=== PATIENT | female | born 1985 | race Caucasian/White ===

== ENCOUNTER 2019-10-15 13:38 | Outpatient (CLI) | payer OTHER, SELFPAY ==
--- NOTE | 2019-10-15 13:53 | XRR_ITS ---
PROCEDURE INFORMATION: Exam: XR Lumbosacral Spine, 2 or 3 Views Exam date and time: 10/15/2019 2:08 PM Age: 34 years old Clinical indication: Low back pain; Prior surgery; Surgery date: 6+ months; Surgery type: Lumbar; Additional info: Chronic back pain/lumbago w/right side sciatica TECHNIQUE: Imaging protocol: XR of the lumbosacral spine, 2 or 3 views. COMPARISON: No relevant prior studies available. FINDINGS: Vertebrae: Mild lumbar dextroscoliosis, possibly positional in nature. Mild L4-L5 disc space narrowing with mild vertebral body endplate bony overgrowth/spurring. Soft tissues: Normal. XR/XR lumbar spine min 4V [id number] IMPRESSION: No acute findings. Mild degenerative disc changes L4-L5.
== END 2019-10-15 13:39 | disposition home or self-care (01) ==
LOC: RAD 13:44
PROVIDERS: Visit Provider Nurse Practitioner Family
DX: M54.9 Dorsalgia, unspecified (principal); G89.29 Other chronic pain; M54.41 Lumbago with sciatica, right side
CPT/HCPCS: 72114

== ENCOUNTER 2019-10-18 22:39 | Emergency (ER) | payer OTHER, SELFPAY ==
[2019-10-18 23:07] VITALS: PULSE 121; RESP 18; TEMP 36.8; O2SAT 99; BMI 51.7
--- NOTE | 2019-10-18 23:30 | ED_ITS ---
HPI - Back Pain/Injury General: Chief Complaint: Back Pain/Injury Stated Complaint: lower back pain Time Seen by Provider: 10/18/19 23:18 History of Present Illness: HPI Narrative: Patient complained about worsening back pain. Has no medicine to take. Was given a steroid shot day before yesterday. Had to miss work. Like some for pain. Has history of back surgery and has an S1 L5 herniation presently. MD elicited complaint: back pain Pertinent past history: prior back pain and back surgery Onset (ago): week(s) Timing: constant and progressively worsening Severity: moderate Similar Symptoms Previously: Yes Quality: aching Location: lumbar spine Radiation: right leg below the knee Exacerbating factors: movement and lifting Associated symptoms: Reports no associated symptoms; Deny abdominal pain, chills, fever(s), nausea or vomiting Review of Systems Const: Denies: fever, chills or body aches Eyes: Denies: change in vision or blurry vision ENMT: Denies: throat pain or nasal congestion Card: Denies: chest pain or shortness of breath on exertion Resp: Denies: shortness of breath, productive cough or non-productive cough GI: Denies: abdominal pain, nausea or vomiting Musc: Reports: back pain and limited range of motion; Denies: extremity pain Skin/Breast: Denies: rash Neuro: Denies: headache Psych: Denies: anxiety or depression Humberto/Lymph: Denies: easy bruising PFSH ED PFSH: Family History (Updated 09/12/19 @ 09:28 by Francie Springer RN) Family/Other Diabetes Maternal aunt Breast cancer maternal aunt Heart disease paternal uncle Grandmother Diabetes maternal Grandfather Diabetes paternal Stroke maternal Sister Diabetes Father Diabetes Hypertension Mother Diabetes Social History (Updated 09/12/19 @ 09:17 by Francie Springer RN) Smoking and tobacco status: never smoked Alcohol intake: never Additional social history: well balanced diet Physical Exam Const: COMMON NORMALS: no apparent distress, average body habitus and oriented x3 HENMT: COMMON NORMALS: normocephalic HEAD & SCALP: normal to inspection and normocephalic FACE & SINUS: normal facial exam Eye: COMMON NORMALS: conjunctivae normal GENERAL EYE: normal appearance of both eyes CONJUNCTIVA: Yes conjunctivae normal Neck/C-Spine: COMMON NORMALS: no JVD Chest: COMMONS NORMALS: inspection of chest normal Resp: COMMON NORMALS: normal respiratory effort and clear to auscultation bilaterally AUSCULTATION: clear to auscultation bilaterally Cardio: COMMON NORMALS: no JVD, regular rate and regular rhythm RATE: regular rate RHYTHM: regular rhythm GI: COMMON NORMALS: normal to inspection, nondistended, normoactive bowel sounds Back/Pelvis: OTHER: Tenderness to the right sciatic nerve through the thigh and calf. Extremity: COMMON NORMALS: normal to inspection and full ROM Neuro: COMMON NORMALS: oriented x3 Course Vital Signs: Vital signs: Vital Signs Temperature 98.2 F 10/18/19 23:07 Pulse Rate 121 H 10/18/19 23:07 Respiratory Rate 18 10/18/19 23:07 Pulse Oximetry 99 10/18/19 23:07 Discharge Plan Discharge Prescriptions: No Action Mirena 20 mcg/24 hours (5 yrs) 52 mg intrauterine device 1 device INTRAUTERI ONCE RF: 0 ProAir RespiClick 90 mcg/actuation aerosol powdr breath activated 2 inh INHALATION Q6H PRNRF: 0 Coding Level of Care Code ED Link Wire Fabric Machine Tender for Chg Fwd
[2019-10-18 23:44] VITALS: BP 117/88; PULSE 71; RESP 18; O2SAT 98
[2019-10-19] MEDS: HYDROcodone-acetaminophen 7.5-325 mg Tablet 1 TAB PO (00:57)
[2019-10-19 01:14] VITALS: BP 112/70; PULSE 74; RESP 18; O2SAT 99
== END 2019-10-19 01:42 | disposition home or self-care (01) ==
PROVIDERS: Emergency Provider Nurse Practitioner Family; PCP Nurse Practitioner Family
DX: M79.661 Pain in right lower leg (principal); M51.27 Other intervertebral disc displacement, lumbosacral region; Z98.890 Other specified postprocedural states
CPT/HCPCS: 99281; 99282

== ENCOUNTER 2020-02-14 21:00 | Emergency (ER) | payer OTHER, SELFPAY ==
[2020-02-14 21:40] VITALS: BP 135/87; PULSE 85; RESP 18; TEMP 37.1; O2SAT 92; BMI 54.0
--- NOTE | 2020-02-14 23:07 | XRR_ITS ---
PROCEDURE INFORMATION: Exam: XR Chest, 1 View Exam date and time: 02/14/2020 11:19 PM Age: 34 years old Clinical indication: Dyspnea; Additional info: SOB, asthma TECHNIQUE: Imaging protocol: XR of the chest Views: 1 view. COMPARISON: No relevant prior studies available. FINDINGS: Lungs: Unremarkable. No consolidation. Pleural space: Unremarkable. No pleural effusion. No pneumothorax. Heart/Mediastinum: Unremarkable. No cardiomegaly. Bones/joints: Unremarkable. XR/XR chest 1V portable [id number] IMPRESSION: No acute findings.
--- NOTE | 2020-02-14 23:09 | ED_ITS ---
HPI - SOB/Dyspnea General: Chief Complaint: Shortness of Breath/Dyspnea Stated Complaint: sob Time Seen by Provider: 02/14/20 23:03 Source: patient Mode of arrival: ambulatory Limitations: no limitations History of Present Illness: HPI Narrative: Patient comes in with increased asthma symptoms over the last 3 days. Patient states that she has had to use her inhaler more often than usual. Patient appears well. Patient appears in mild distress. Review of Systems General: Reports: 10 or more systems reviewed and unremarkable except in HPI and below Resp: Reports: dyspnea PFSH ED PFSH: Family History (Updated 09/12/19 @ 09:28 by Francie Springer RN) Family/Other Diabetes Maternal aunt Breast cancer maternal aunt Heart disease paternal uncle Grandmother Diabetes maternal Grandfather Diabetes paternal Stroke maternal Sister Diabetes Father Diabetes Hypertension Mother Diabetes Social History (Updated 09/12/19 @ 09:17 by Francie Springer RN) Smoking and tobacco status: never smoked Alcohol intake: never Additional social history: well balanced diet Physical Exam Const: COMMON NORMALS: no acute distress and patient oriented x3 GENERAL APPEARANCE: cooperative HENMT: COMMON NORMALS: normocephalic and Normal external nose present HEAD & SCALP: normal to inspection and normocephalic NOSE: Normal external nose present MOUTH: Normal oral and palatal mucosa present THROAT: posterior oropharynx normal Eye: GENERAL EYE: appearance normal, both eyes and all related structures Neck/C-Spine: COMMON NORMALS: full ROM Lymph: LYMPHATIC: no lymphadenopathy noted Chest: COMMONS NORMALS: normal inspection of the chest Resp: COMMON NORMALS: normal respiratory effort EFFORT & INSPECTION: Yes able to speak in complete sentences AUSCULTATION: diminished lung sounds Cardio: COMMON NORMALS: regular rate and regular rhythm RATE: regular rate RHYTHM: regular rhythm GI: COMMON NORMALS: non-tender Back/Pelvis: COMMON NORMALS: thoracic and lumbar spine normal to inspection Extremity: COMMON NORMALS: normal to inspection Neuro: COMMON NORMALS: patient oriented x3 and moves all extremities Psych: COMMON NORMALS: mental status grossly normal and cooperative Skin: COMMON NORMALS: no rashes or lesions noted GENERAL SKIN EXAM: no rashes or lesions noted Course Vital Signs: Vital signs: Vital Signs Temperature 98.7 F 02/14/20 21:40 Pulse Rate 97 02/15/20 00:00 Respiratory Rate 16 02/15/20 00:00 Blood Pressure 105/80 02/15/20 00:00 Pulse Oximetry 96 02/15/20 00:00 MDM - SOB/Dyspnea MDM Narrative: Medical decision making narrative: Patient came in today for complaints of asthma acting up. Patient has been using more of her inhaler than usual for the last 3 days. Patient has been feeling more short of breath. Exam notes decreased breath sounds in the bases of the lungs. Heart rates regular. Vital signs were normal. Differential diagnosis includes lower respiratory infection, asthma, pneumonia. Chest x-ray was normal, laboratory values were normal. Patient was treated in the ER with 10 mg dexamethasone, 2 g of mag sulfate, albuterol and ipratropium breathing treatment. Patient had significant improvement in breath sounds and was resting well. Reviewed post procedure care and recommendations for home treatment. Patient reported understanding agreed to plan. Lab Data: Labs: Lab Results 02/14/20 02/14/20 02/14/20 Range/Units 23:15 23:15 23:15 WBC 8.1 (4.0-10.0) 10^3/ uL RBC 4.68 (4.1-5.3) 10^6/u L Hgb 13.6 (11.5-15.3) g/dL Hct 43.6 (37.0-47.0) % MCV 93.2 (81-99) fL MCH 29.1 (28.0-34.0) pg MCHC 31.2 (30.0-36.0) g/dL RDW 11.6 L (12.1-15.1) % Plt Count 235 (130-400) 10^3/c mm MPV 10.6 H (7.4-10.4) fL Neut % (Auto) 56.5 % Lymph % (Auto) 33.8 % [place] % (Auto) 7.1 % Eos % (Auto) 2.0 % Baso % (Auto) 0.4 % Neut # (Auto) 4.6 (1.8-7.7) 10^3/u L Lymph # (Auto) 2.7 (0.8-4.8) 10^3/u L [place] # (Auto) 0.6 (0.2-0.9) 10^3/u L Eos # (Auto) 0.2 (0.0-0.8) 10^3/u L Baso # (Auto) 0.0 (0.0-0.1) 10^3/u L Nucleated RBC % (a uto) 0 % Nucleated RBCs # 0.0 /100WBC D-Dimer 0.40 (0-0.59) ug/mIFE U Sodium 141 (136-145) mmol/L Potassium 3.5 (3.5-5.1) mmol/L Chloride 104 (98-107) mmol/L Carbon Dioxide 26 (22-29) mmol/L Anion Gap 14.5 (5-19) BUN 9 (6-20) mg/dL Creatinine 0.7 (0.5-0.9) mg/dL GFR Calculation 95.2 (90-130) mL/min Glucose 111 (65-115) mg/dL Calculated Osmolal ity 289 (285-295) mOsm/k g Calcium 9.1 (8.5-10.5) mg/dL Magnesium 2.1 (1.7-2.3) mg/dL Total Bilirubin 0.2 (0.15-1.2) mg/dL AST 17 (0-32) U/L ALT 19 (0-33) U/L Alkaline Phosphata se 146 H (35-105) IU/L Total Protein 7.4 (6.6-8.7) g/dL Albumin 3.9 (3.5-5.2) g/dL Globulin 3.5 (1.3-4.6) g/dL HCG, Qual (Negative) 02/14/20 Range/Units 23:15 WBC (4.0-10.0) 10^3/ uL RBC (4.1-5.3) 10^6/u L Hgb (11.5-15.3) g/dL Hct (37.0-47.0) % MCV (81-99) fL MCH (28.0-34.0) pg MCHC (30.0-36.0) g/dL RDW (12.1-15.1) % Plt Count (130-400) 10^3/c mm MPV (7.4-10.4) fL Neut % (Auto) % Lymph % (Auto) % [place] % (Auto) % Eos % (Auto) % Baso % (Auto) % Neut # (Auto) (1.8-7.7) 10^3/u L Lymph # (Auto) (0.8-4.8) 10^3/u L [place] # (Auto) (0.2-0.9) 10^3/u L Eos # (Auto) (0.0-0.8) 10^3/u L Baso # (Auto) (0.0-0.1) 10^3/u L Nucleated RBC % (a uto) % Nucleated RBCs # /100WBC D-Dimer (0-0.59) ug/mIFE U Sodium (136-145) mmol/L Potassium (3.5-5.1) mmol/L Chloride (98-107) mmol/L Carbon Dioxide (22-29) mmol/L Anion Gap (5-19) BUN (6-20) mg/dL Creatinine (0.5-0.9) mg/dL GFR Calculation (90-130) mL/min Glucose (65-115) mg/dL Calculated Osmolal ity (285-295) mOsm/k g Calcium (8.5-10.5) mg/dL Magnesium (1.7-2.3) mg/dL Total Bilirubin (0.15-1.2) mg/dL AST (0-32) U/L ALT (0-33) U/L Alkaline Phosphata se (35-105) IU/L Total Protein (6.6-8.7) g/dL Albumin (3.5-5.2) g/dL Globulin (1.3-4.6) g/dL HCG, Qual Negative (Negative) Discharge Plan Discharge Patient Disposition: Home, Self-Care Clinical Impression: Asthma with exacerbation Qualifiers: Asthma severity: moderate Asthma persistence: persistent Qualified Code(s): J45.41 - Moderate persistent asthma with (acute) exacerbation Condition: Stable Prescriptions: New prednisone 20 mg tablet 20 mg PO BID 3 Days Qty: 6 RF: 0 No Action Mirena 20 mcg/24 hours (5 yrs) 52 mg intrauterine device 1 device INTRAUTERI ONCE RF: 0 ProAir RespiClick 90 mcg/actuation aerosol powdr breath activated 2 inh INHALATION Q6H PRNRF: 0 Lorcet (hydrocodone) 5-325 mg tablet 1 tab PO Q6H PRN (Reason: pain) Qty: 14 RF: 0 Discharge Orders: Discharge Order (Routine); Ordered 02/15/20 Ordered By: Vernon Camacho Referrals: MARTHA KLEIN FNP [Primary Care Provider] - Discharge Diet: Usual diet Discharge Activity: Increase activity as tolerated Patient Instructions: Asthma (ED) Activity Restrictions/Additional Instructions: Drink plenty of fluids. Continue with inhalers as directed. Follow-up with primary care in 3 days for recheck. Return to the ER for high fever or worsening shortness of breath. Coding Level of Care Code ED Financial Services Representative for Chg Fwd Exam Comprehensive
[2020-02-14] MEDS: ipratropium-albuterol 3 mL Neb INHALATION (23:18)
[2020-02-14 23:19] VITALS: PULSE 75; RESP 24; O2SAT 99
[2020-02-14 23:27] LABS: Basophils % 0.4 %; Eosinophils # 0.2 10^3/uL (0.0-0.8); Hematocrit 43.6 % (37.0-47.0); Hemoglobin 13.6 g/dL (11.5-15.3); Lymphocytes # 2.7 10^3/uL (0.8-4.8); Lymphocytes % 33.8 %; Mean Corpuscular HGB Conc 31.2 g/dL (30.0-36.0); Mean Corpuscular Hemoglobin 29.1 pg (28.0-34.0); Mean Corpuscular Volume 93.2 fL (81-99); Mean Platelet Volume 10.6 fL (7.4-10.4); Monocytes # 0.6 10^3/uL (0.2-0.9); Monocytes % 7.1 %; Neutrophils # 4.6 10^3/uL (1.8-7.7); Neutrophils % 56.5 %; Nucleated Red Blood Cells % 0 %; Platelet Count 235 10^3/cmm (130-400); Red Blood Count 4.68 10^6/uL (4.1-5.3); Red Cell Distribution Width 11.6 % (12.1-15.1); White Blood Count 8.1 10^3/uL (4.0-10.0)
[2020-02-14] MEDS: dexamethasone 10 mg/mL INJ IVP (23:36)
[2020-02-14] MEDS: magnesium sulfate premix 2 GM/50 ML PIGGYBACK IV (23:36)
[2020-02-14 23:42] LABS: HCG, Serum Qual Negative (Negative)
[2020-02-14 23:44] LABS: Alanine Aminotransferase 19 U/L (0-33); Albumin Level 3.9 g/dL (3.5-5.2); Alkaline Phosphatase 146 IU/L (35-105); Anion Gap 14.5 (5-19); Aspartate Amino Transferase 17 U/L (0-32); Blood Urea Nitrogen 9 mg/dL (6-20); Calcium 9.1 mg/dL (8.5-10.5); Carbon Dioxide 26 mmol/L (22-29); Chloride 104 mmol/L (98-107); Globulin 3.5 g/dL (1.3-4.6); Glomerular Filtration Rate 95.2 mL/min (90-130); Glucose 111 mg/dL (65-115); Magnesium 2.1 mg/dL (1.7-2.3); Osmolality Calculated 289 mOsm/kg (285-295); Potassium 3.5 mmol/L (3.5-5.1); Sodium 141 mmol/L (136-145); Total Bilirubin 0.2 mg/dL (0.15-1.2); Total Protein 7.4 g/dL (6.6-8.7)
[2020-02-15] VITALS: BP 105/80; PULSE 97; RESP 16; O2SAT 96
[2020-02-15 01:09] VITALS: BP 108/66; PULSE 77; RESP 16; O2SAT 96
== END 2020-02-15 01:11 | disposition home or self-care (01) ==
PROVIDERS: Emergency Provider Nurse Practitioner Family; PCP Nurse Practitioner Family
DX: J45.41 Moderate persistent asthma with (acute) exacerbation (principal)
CPT/HCPCS: 12345; 71045; 80053; 83735; 84703; 85025; 85378; 94640; 96365; 96375; 99283; 99284; J1100; J3475

== ENCOUNTER → 2020-03-09 17:34 | Outpatient (BNVA) | payer OTHER, SELFPAY | PROVIDERS: PCP Nurse Practitioner Family; Visit Provider Nurse Practitioner | DX: R30.0 Dysuria (principal); N39.0 Urinary tract infection, site not specified; Z71.89 Other specified counseling | CPT/HCPCS: 81000 ==

== ENCOUNTER → 2020-09-12 17:18 | Outpatient (BNVA) | payer OTHER, SELFPAY | PROVIDERS: PCP Nurse Practitioner Family; Visit Provider Family Medicine | DX: Z20.828 Contact with and (suspected) exposure to other viral communicable diseases (principal) | CPT/HCPCS: 87635 ==

== ENCOUNTER → 2021-03-25 09:27 | Outpatient (BNVA) | payer OTHER, SELFPAY | PROVIDERS: PCP Family Medicine; Visit Provider Family Medicine | DX: F41.8 Other specified anxiety disorders (principal); M54.41 Lumbago with sciatica, right side; G89.29 Other chronic pain; Z13.6 Encounter for screening for cardiovascular disorders | CPT/HCPCS: 80053; 80061; 85025 ==

== ENCOUNTER 2021-09-01 07:16 | Outpatient (CLI) | payer OTHER, SELFPAY ==
--- NOTE | 2021-09-01 07:28 | XR_ITS ---
WS: [id number] Left knee, 3 views, 09/01/2021 Clinical Data: left knee pain Comparison: None. Findings: No fractures or dislocations are seen. There is medial joint compartment narrowing with small osteoph ytes of the medial lateral tibial plateau and of the medial femoral condyle. There is minimal spurrin g of the posterior patella. . The soft tissues are unremarkable. 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 Kellgren-Matteo Classification: grade 2 (minimal): definite osteophytes and p ossible joint space narrowing
== END 2021-09-01 07:17 | disposition home or self-care (01) ==
PROVIDERS: PCP Family Medicine; Visit Provider Registered Nurse Neonatal Intensive Care
DX: M25.562 Pain in left knee (principal)
CPT/HCPCS: 73562

== ENCOUNTER 2021-10-31 09:54 | Outpatient (CLI) | payer OTHER, SELFPAY ==
--- NOTE | 2021-10-31 10:15 | MR_ITS ---
WS: [id number] MRI LEFT KNEE HISTORY: M25.562 - Pain in left knee COMPARISON: Radiograph 09/01/2021 Anterior cruciate ligament: Mild increased signal mild thinning of the ACL. No full-thickness tears a re identified. Posterior cruciate ligament: Intact. Medial collateral ligament: Small amount of fluid but no tear. Posterior lateral corner structures: Intact. Medial menisci: Intact. Normal signal, size and shape. Lateral meniscus: Intact. Normal signal, size and shape. Extensor mechanism: Normal extensor and patellar tendons. Fluid and soft tissue: Small suprapatellar joint effusion. Moderate-sized lobulated cystic mass along the medial knee. A portion of this extends between the medial head of the gastrocnemius and the semi membranosus tendon consistent with a Marie's cyst. There is also a component that extends medial to t he semimembranosus tendon along the medial knee. There does appear to be a connection between the 2 c omponents. Osseous and articular structures: Patellofemoral compartment: Moderate chondromalacia patella. No underlying marrow edema. The remainin g cartilage is intact. Medial compartment: Mild narrowing medial compartment. Full-thickness focal defect measuring about 5 mm along the weightbearing surface of the femoral condyle and the tibial plateau. No marrow edema. Lateral compartment: Mild narrowing of lateral compartment with marginal osteophytes. Mild fissuring and thinning of the cartilage. No full-thickness defect. MR/MR knee LT con* [id number] IMPRESSION: 1. Mild degenerative changes throughout the ACL but no full-thickness tear. 2. Moderate-sized suprapatellar joint effusion. 3. Lobulated cystic mass centered in the expected location of the Marie's cyst but a component also extends medial to the semimembranosus tendon. 4. 5 mm full-thickness cartilage defects weightbearing surface medial femoral condyle and tibial plateau. 5. Chondromalacia at the patellar eminence.
== END 2021-10-31 09:55 | disposition home or self-care (01) ==
LOC: RAD 09:56
PROVIDERS: PCP Family Medicine; Visit Provider Orthopaedic Surgery
DX: M25.462 Effusion, left knee (principal); M22.42 Chondromalacia patellae, left knee
CPT/HCPCS: 73721

== ENCOUNTER 2021-11-10 07:08 | Day surgery (SDC) | payer OTHER, SELFPAY ==
[2021-11-04 12:36] LABS: Adenovirus Not Detected (NOT DETECT); Chlamydia Pneumoniae Not Detected (NOT DETECT); Coronavirus 229E,HKU1,NL63,OC4 Not Detected (NOT DETECT); Human Metapneumovirus Not Detected (NOT DETECT); Human Rhinovirus/Enterovirus Not Detected (NOT DETECT); Influenza A Not Detected (NOT DETECT); Influenza A H1 Not Detected (NOT DETECT); Influenza A H1-2009 Not Detected (NOT DETECT); Influenza A H3 Not Detected (NOT DETECT); Influenza B Not Detected (NOT DETECT); Mycoplasma Pneumoniae Not Detected (NOT DETECT); Parainfluenza Virus Type 1 Not Detected (NOT DETECT); Parainfluenza Virus Type 2 Not Detected (NOT DETECT); Parainfluenza Virus Type 3 Not Detected (NOT DETECT); Parainfluenza Virus Type 4 Not Detected (NOT DETECT); Respiratory Syncytial Virus A Not Detected (NOT DETECT); Respiratory Syncytial Virus B Not Detected (NOT DETECT); SARS-COV-2 Not Detected (NOT DETECT)
[2021-11-09 14:40] VITALS: BMI 50.5
[2021-11-10] VITALS (10 sets, daily range): BP systolic 100–153; BP diastolic 65–118; PULSE 82–98; RESP 13–26; TEMP 36.1; O2SAT 94–100
--- NOTE | 2021-11-10 07:52 | W.PM.OPSUD ---
Surgery/Procedure H&P Update DATE OF PROCEDURE: November 10, 2021 DATE H&P PERFORMED: 11/02/21 H&P UPDATE INFORMATION: I have reviewed H&P completed within last 30 days PREOP DIAGNOSIS: Rheumatic chondral injury left knee PLANNED PROCEDURE: Operation Date: 11/10/21 08:20 Proposed Procedures p Left Knee Arthroscopy 82797/m17.12(Left) - Jg Harris MD
[2021-11-10 07:56] LABS: OR HCG Qualitative Urine Negative (Negative)
[2021-11-10] MEDS: sodium chloride 0.9% 1,000 ML 30 ML IV (08:00)
--- NOTE | 2021-11-10 08:32 | P.ANESASSM_ITS ---
Pre-Anesthetic Assessment Height/Weight: Height 1.78 m Weight 159.665 kg Temp Pulse Resp BP Pulse Ox 97 F L 93 18 153/118 100 11/10/21 08:05 11/10/21 08:05 11/10/21 08:05 11/10/21 08:05 11/10/21 08:05 Preop Diagnosis: Chondromalacia left knee Operation Date: 11/10/21 08:20 Proposed Procedures p Left Knee Arthroscopy 80984/m17.12(Left) - Jg Harris MD Familial anesthetic complications: None Was Beta Jin taken within 24 hours: N/A Was Clonidine taken within 24 hours: N/A Last intake: Intake Last Liquid Date 11/09/21 Last Liquid Time 21:00 Last Solid Date 11/09/21 Last Solid Time 18:00 Social No alcohol and No tobacco Exam alert, oriented x 3, clear to auscultation bilaterally and regular rate & rhythm Airway Submandibular: within normal limits Cervical ROM: within normal limits Mallampati: Class II Dentition: full Pulmonary Asthma GI Gastroesophageal Reflux [place] [facility] [place] Pain Neuropsych Anxiety and Depression Anesthetic Plan ASA status: 3 Anesthesia: General Risk of > 500 ml blood loss (7ml/kg in children): No Medications/Allergies Home Medications Medication Instructions Recorded Confirmed Last Taken Type levonorgestrel 20 mcg/24 hours (7 1 device INTRAUTERI ONCE 09/10/19 11/09/21 11/09/21 History yrs) 52 mg intrauterine device (Mirena) albuterol sulfate 90 mcg/actuation 2 inh INHALATION Q6H PRN #1 ea 03/25/21 11/10/21 1 Day Ago Rx breath activated powder inhaler ~11/09/21 (ProAir RespiClick) cyclobenzaprine 10 mg tablet 10 mg PO BID PRN #135 tab 07/07/21 11/09/21 11/09/21 Rx gabapentin 300 mg capsule See Rx Instructions PO TID #360 cap 07/07/21 11/09/21 11/09/21 Rx montelukast 10 mg tablet 10 mg PO DAILY #90 tab 07/07/21 11/09/21 11/09/21 Rx (Singulair) omeprazole 40 mg capsule,delayed 40 mg PO DAILY #90 cap 11/04/21 03/09/22 03/09/22 Rx release bupropion HCl 300 mg 24 hr tablet, 300 mg PO QAM #90 tab 09/15/21 11/09/21 11/09/21 Rx extended release naproxen 500 mg tablet (Naprosyn) 500 mg PO BID #60 tab 09/15/21 11/09/21 10/26/21 Rx hydrocodone 5 mg-acetaminophen 325 1 tab PO Q4H #30 tab 11/10/21 Unknown Rx mg tablet Allergies Allergy/AdvReac Type Severity Reaction Status Date / Time adhesive Allergy Severe skin tears Verified 11/10/21 07:38 Pertussis Vaccines Allergy Severe anaphylaxis Verified 11/10/21 07:38 nalbuphine [From Nubain] Allergy projectile Verified 11/10/21 07:38 vomiting contrast media Allergy Rash, Uncoded 11/10/21 07:38 headache, itching PFSH Anesthesia Medical History Contraception management Patient was counseled regarding all methods of contraception, long acting reversible contraception, indications, contraindications, side effects and complications. She elected for the levonorgestrel-releasing intrauterine system. Return next for insertion of the levonorgestrel-releasing intrauterine system. Time: 30 min. Surgical History History of cholecystectomy 10/2010 History of laminectomy L4-L5 History of tonsillectomy 09/2001 Hx of discectomy 06/2017 L4-L5 Family History Family/Other Diabetes Maternal aunt Breast cancer maternal aunt Heart disease paternal uncle Grandmother Diabetes maternal Grandfather Diabetes paternal Stroke maternal Sister Diabetes Father Diabetes Hypertension Mother Diabetes Social History Smoking and tobacco status: never smoked Alcohol intake: never Additional social history: well balanced diet Female Reproductive History Date of last menstrual period: 11/13/18 Data Anesthesia Cardiac Studies: No Data to Display
[2021-11-10] MEDS: morphine 4 mg/mL SDV 1 mL 8 MG XX (08:36)
--- NOTE | 2021-11-10 09:03 | PM.OP ---
Operative Report Date of procedure: November 10, 2021 Pre-op diagnosis: Preop Diagnosis Chondromalacia left knee Post-op diagnosis: same Procedure done: Microfracture chondroplasty medial femoral condyle, debridement chondroplasty lateral femoral condyle patella and trochlea Pathology: none sent Surgeon: Jg Harris Anesthesia: General Estimated blood loss (mL): 5 Tourniquet time (min): 16 Findings: Patient had a area of a full-thickness cartilage loss over the central weightbearing femoral condyle over a area approximately 5 mm from medial to lateral and 12 mm from anterior to posterior. There is generalized thinning of cartilage over the lateral femoral condyle patella and trochlea but no point was exposed subchondral bone noted. Brief History: Bhaskar is a 36-year-old female who slipped and fell on August 06, 2021 with resulting knee pain. An MRI revealed, in addition to is diffuse degenerative changes full-thickness cartilage defect over the medial femoral condyle Procedure: The patient was taken to the operating room and given a general anesthesia. She was prepped and draped in the standard fashion. The knee was infiltrated with 30 cc of 1% Marcaine with epi and 10 mg of morphine. A timeout was performed. The knee was initially entered through standard inferior medial and inferior lateral portal. The diagnostic portion of the arthroscopy was performed. Areas of cartilage thinning were identified about the patella trochlea and lateral femoral condyle. The area of full-thickness cartilage loss was seen over the medial femoral condyle. Utilizing an incisor shaver the edges were debrided back to a sharp stable base. This created a defect approximately 5 mm from medial to lateral and 12 mm from anterior to posterior. As a subchondral bone was intact and the defect small a decision was made to proceed with a microfracture chondroplasty. Through the lateral portal perforating awl was passed and 5 perforations were made in an alternating fashion from posterior to anterior medial to lateral. Pressure was deflated on the tourniquet and blood medial eminence were seen to emanate from the wounds. The lateral compartment was then inspected. Areas of thinning and fibrillation were lightly debrided back with the [employer] probe. At no point was exposed subchondral bone identified. Attention was then focused on the trochlea and patella. Widespread thinning of cartilage about the medial and lateral trochlea and medial lateral patella were lightly debrided back again without exposed subchondral bone. The knee was irrigated with saline. Portals were closed with 3-0 Prolene. Sterile dressings were applied. The patient was extubated taken to recovery in stable condition.
[2021-11-10] MEDS: ondansetron 2 mg/ML SDV 2 mL 4 MG IVP ×2 (09:15→09:27)
[2021-11-10] MEDS: diphenhydrAMINE 50 mg/mL SDV 1mL 12.5 MG IVP (09:22)
[2021-11-10] MEDS: hetastarch 30 GM/500 ML PREMIX IV (10:06)
--- NOTE | 2021-11-10 14:49 | ANE.PACU2 ---
Inpatient post-anesthesia follow up: Airway intact: Yes Vital signs: Temperature 97 F Pulse Rate 87 Respiratory Rate 18 Blood Pressure 122/78 Pulse Oximetry 98 Oxygen Delivery Me thod Room Air Oxygen Flow Rate Fraction of Inspir ed Oxygen Hydration adequate: Yes Nausea and vomiting: Yes Pain level: 3 Mental status: Baseline
== END 2021-11-10 11:15 | disposition home or self-care (01) ==
PROVIDERS: Anesthesiology; PCP Family Medicine; Visit Provider Orthopaedic Surgery
PROC: (CPT 29870; principal; 2021-11-10 08:10)
DX: M94.262 Chondromalacia, left knee (principal); K21.9 Gastro-esophageal reflux disease without esophagitis
CPT/HCPCS: 29877; 81025; 84703; 87635; J0690; J1100; J1200; J2250; J2270; J2405; J2704; J3010; J3490; J7030

== ENCOUNTER 2021-12-26 20:00 | Outpatient (CLI) | payer OTHER, SELFPAY | END 2021-12-26 20:01 | disposition home or self-care (01) | LOC: SLEEP 12-27 10:27 | PROVIDERS: PCP Family Medicine; Visit Provider Family Medicine | DX: G47.10 Hypersomnia, unspecified (principal); R06.83 Snoring | CPT/HCPCS: 95810 ==

== ENCOUNTER 2022-01-12 10:55 | Outpatient (CLI) | payer OTHER, SELFPAY ==
[2022-01-12 12:33] LABS: HCG, Serum Qual Negative (Negative)
== END 2022-01-12 10:56 | disposition home or self-care (01) ==
PROVIDERS: PCP Family Medicine; Visit Provider Family Medicine Adult Medicine
DX: Z30.9 Encounter for contraceptive management, unspecified (principal)
CPT/HCPCS: 36415; 84703

== ENCOUNTER 2022-03-30 12:52 | Outpatient (CLI) | payer OTHER, SELFPAY ==
--- NOTE | 2022-03-30 13:00 | MR_ITS ---
WS: [id number] MRI LUMBAR SPINE NONCONTRAST TECHNIQUE: Sagittal T1, T2 and STIR imaging. Axial T1 and T2 imaging. CLINICAL INFORMATION: chronic low back pain COMPARISON: None. FINDINGS: Mild lumbar curve. No acute compression. Prior postoperative changes L4-L5 laminectomy. No high-grade central canal stenosis. Disc space narrowing L4-L5 and L5-S1 with endplate degenerative changes. L1-L2: Normal. L2-L3: Normal. L3-L4: No significant disc bulging. Mild facet arthropathy. Spinal canal and foramen are patent. L4-L5: Prior postoperative changes laminectomy defects. Spinal canal is patent. Narrowing of the RIGH T subarticular recess with impingement traversing RIGHT L5 nerve root suspicious for recurrent disc p rotrusion. Some this may represent granulation tissue. Mild RIGHT foraminal narrowing. LEFT foramen i s patent. L5-S1: Mild annular bulging with a LEFT pericentral disc protrusion. Impingement traversing LEFT S1 n erve root. Mild RIGHT and no significant LEFT foraminal narrowing. Mild facet arthropathy. Slight ret rolisthesis L5 on S1. Visualized pelvic bony structures: Normal. Paravertebral soft tissues: Normal. MR/MR lumbar spine wo con* [id number] IMPRESSION: 1. Mild lumbar curve. No acute compression. Prior postoperative changes blossom ctomy defects L4-L5 with disc desiccation L4-L5 and L5-S1. 2. Narrowing of the RIGHT L4-L5 subarticular recess suspicious for small recur rent disc protrusion. Some this may represent granulation tissue. Recommend cor relation with RIGHT L5 nerve root symptoms. 3. LEFT pericentral disc protrusion L5-S1 impinges the traversing LEFT S1 nerv e root. Recommend correlation LEFT S1 nerve root symptoms. 4. Mild RIGHT L5-S1 foraminal narrowing.
== END 2022-03-30 12:53 | disposition home or self-care (01) ==
PROVIDERS: PCP Family Medicine; Visit Provider Family Medicine
DX: G89.29 Other chronic pain (principal); M96.1 Postlaminectomy syndrome, not elsewhere classified; M51.27 Other intervertebral disc displacement, lumbosacral region
CPT/HCPCS: 72148

== ENCOUNTER 2022-11-28 12:27 | Emergency (ER) | payer OTHER, SELFPAY ==
[2022-11-28 12:29] VITALS: BP 154/82; PULSE 88; RESP 18; TEMP 36.7; O2SAT 92; BMI 54.1
--- NOTE | 2022-11-28 12:47 | ED_ITS ---
HPI - Headache General: Chief Complaint: Headache Stated Complaint: 9 days head pain Time Seen by Provider: 11/28/22 12:47 Source: patient Mode of arrival: ambulatory Limitations: no limitations History of Present Illness: Patient is a 37-year-old female presents to ED today with complaint of a migraine headache over the past 9 days. Patient states she has a longstanding history of migraine headaches and states her headache currently feels identical to previous migraines. She has tried Effexor (started 3 days ago by PCP Dr. Zuniga for preventative treatment) and Imitrex at home without relief. She went to an urgent care facility where she was given Toradol and Zofran all of which has not helped her headache. Patient reports sensitivity to light and sound. She denies fever, neck pain, neck stiffness. MD elicited complaint: headache and migraine Pertinent past history: migraines Onset (ago): day(s) Onset description: gradually Severity: severe Pain scale (0-10): 8 Exacerbating factors: light and noise Relieving factors: nothing Associated symptoms: Deny chest pain, confusion, fever(s), malaise, nausea, rash or vomiting Treatments prior to arrival: migraine medication Review of Systems Const: Denies: fever(s), chills, body aches, fatigue or malaise Eyes: Reports: photophobia; Denies: change in vision, blurry vision, floaters or seeing flashes ENMT: Denies: throat pain, uvular edema, enlarged tonsils, odynophagia, mouth pain or swelling of lips/tongue Card: Denies: chest pain Resp: Denies: dyspnea GI: Denies: nausea or vomiting Musc: Denies: neck pain Skin/Breast: Denies: rash Neuro: Reports: headache(s); Denies: numbness in extremities, weakness in extremities, sensory changes, dizziness, vertigo or confusion PFSH ED PFSH: Medical History Contraception management Patient was counseled regarding all methods of contraception, long acting reversible contraception, indications, contraindications, side effects and complications. She elected for the levonorgestrel-releasing intrauterine system. Return next for insertion of the levonorgestrel-releasing intrauterine system. Time: 30 min. Surgical History History of cholecystectomy 10/2010 History of laminectomy L4-L5 History of tonsillectomy 09/2001 Hx of discectomy 06/2017 L4-L5 Family History Family/Other Diabetes Maternal aunt Breast cancer maternal aunt Heart disease paternal uncle Grandmother Diabetes maternal Grandfather Diabetes paternal Stroke maternal Sister Diabetes Father Diabetes Hypertension Cancer kidney Mother Diabetes Other Hyperlipidemia Lung disease Psychiatric illness Denies family history of CAD (coronary artery disease) Clotting disorder Dementia Chronic kidney disease (CKD) Anesthesia complication Bleeding disorder Social History Smoking and tobacco status: never smoked Second hand smoke exposure: No Alcohol intake: current Alcohol intake frequency: holidays/special occasions only Lives independently: Yes Household members: children Marital status: Number of children: 2 Current occupational status: employed Current occupation: [employer] at [employer] Pets and animals: Yes Pets & animals: cat(s) Current gender identity: Female Special dotty needs: No Agree to transfusion: Yes Additional social history: well balanced diet Physical Exam Const: COMMON NORMALS: no acute distress, patient oriented x3, no limitations and alert GENERAL APPEARANCE: cooperative NUTRITIONAL APPEARANCE: obese morbidly obese ORIENTATION/CONSCIOUSNESS: Yes awake, Yes oriented to person, Yes oriented to place and Yes oriented to time HENMT: COMMON NORMALS: normocephalic and atraumatic HEAD & SCALP: normal to inspection, normocephalic and atraumatic THROAT: no uvular edema Neck/C-Spine: COMMON NORMALS: full ROM and no meningeal signs Neuro: SONIA COMA SCALE: document GCS findings [place] coma scale eye opening: Spontaneous [place] coma scale verbal response: Orientated [place] coma scale motor response: Obey commands Sonia coma scale total score: 15 COMMON NORMALS: patient oriented x3, CN's II-XII intact bilaterally, moves all extremities, no focal motor deficits, no sensory deficits noted and gait normal SENSORIUM/ORIENTATION: Yes alert, Yes oriented to person, Yes oriented to place and Yes oriented to time MENINGEAL SIGNS: Yes no meningeal signs Course Vital Signs: Vital signs: Vital Signs Temperature 98.0 F 11/28/22 12:29 Pulse Rate 88 11/28/22 12:29 Respiratory Rate 18 11/28/22 12:29 Blood Pressure 154/82 11/28/22 12:29 Pulse Oximetry 92 11/28/22 12:29 Oxygen Delivery Me thod 11/28/22 12:29 MDM - Headache Medical Decision Making Patient's headache down from an 8/10 to a 2/10. She feels comfortable going home at this time. Discharge Plan Discharge Patient Disposition: Home Clinical Impression: Migraine Qualifiers: Migraine type: unspecified Status migrainosus presence: with status migrainosus Intractability: not intractable Qualified Code(s): G43.901 - Migraine, unspecified, not intractable, with status migrainosus Condition: Stable Prescriptions: No Action bupropion HCl 300 mg tablet extended release 24 hr 300 mg PO QAM Qty: 90 1RF gabapentin 300 mg capsule See Rx Instructions PO TID Qty: 360 1RF Rx Instructions: Take one in AM, one at noon, and two and hs omeprazole 40 mg capsule,delayed release(DR/EC) 40 mg PO DAILY Qty: 90 1RF montelukast [Singulair] 10 mg tablet 10 mg PO DAILY Qty: 90 1RF methylprednisolone acetate [Depo-Medrol] 80 mg/mL suspension 80 mg Infiltration ONCE Qty: 1 0RF albuterol sulfate 90 mcg/actuation HFA aerosol inhaler 2 inh inhalation Q4H PRN (Reason: shortness of breath or wheezing) Qty: 6.7 0RF Excedrin Migraine 250-250-65 mg tablet 1 tab PO Q6H PRN tizanidine 4 mg tablet 4 mg PO BID venlafaxine [Effexor XR] 75 mg capsule,extended release 24hr 75 mg PO DAILY Qty: 14 0RF sumatriptan succinate 50 mg tablet See Rx Instructions PO .COMPLEX Qty: 10 0RF Rx Instructions: take 1 tab at onset of headache; if no relief may repeat 1 tab after at least 2 hrs; max = 2 tabs/24 hr PO Discharge Orders: Discharge ED (Routine); Ordered 11/28/22 Ordered By: Jenny Boyer Referrals: Johanny Pires DO [Primary Care Provider] - Patient Instructions: Headache - Migraine (Adult), Migraine Headache (ED) Coding Level of Care Code ED 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
[2022-11-28] MEDS: dexamethasone 10 mg/mL INJ IV (13:09)
[2022-11-28] MEDS: sodium chloride 0.9% 1,000 ML 999 ML IV (13:10)
[2022-11-28] MEDS: ketorolac 60 mg/2 mL INJ 30 MG IVP (13:10)
[2022-11-28] MEDS: ondansetron 2 mg/ML SDV 2 mL 4 MG IVP (13:10)
[2022-11-28] MEDS: diphenhydrAMINE 50 mg/mL SDV 1mL IVP (13:10)
[2022-11-28] MEDS: metoclopramide 5 mg/mL SDV 2 mL 10 MG IVP (14:32)
[2022-11-28] MEDS: dihydroergotamine 1 mg/mL Inj IVP (14:33)
== END 2022-11-28 14:58 | disposition home or self-care (01) ==
PROVIDERS: Emergency Provider Physician Assistant; PCP Family Medicine
DX: G43.901 Migraine, unspecified, not intractable, with status migrainosus (principal)
CPT/HCPCS: 96361; 96374; 96375; 99284; J1100; J1110; J1200; J1885; J2405; J2765; J7030

== ENCOUNTER → 2022-12-06 08:17 | Outpatient (BNVA) | payer OTHER, SELFPAY | PROVIDERS: PCP Family Medicine; Visit Provider Family Medicine | DX: G43.909 Migraine, unspecified, not intractable, without status migrainosus (principal) | CPT/HCPCS: 80053; 80061; 81000; 83036; 84439; 84443; 85025 ==

== ENCOUNTER → 2022-12-12 11:48 | Outpatient (BNVA) | payer OTHER, SELFPAY | PROVIDERS: PCP Family Medicine; Visit Provider Nurse Practitioner Family | DX: J02.9 Acute pharyngitis, unspecified (principal) | CPT/HCPCS: 87071; 87880 ==

== ENCOUNTER 2023-01-28 15:07 | Emergency (ER) | payer OTHER, SELFPAY ==
[2023-01-28 15:28] VITALS: BP 135/83; PULSE 99; RESP 16; TEMP 36.8; O2SAT 96; BMI 54.1
--- NOTE | 2023-01-28 16:46 | CTR_ITS ---
PROCEDURE INFORMATION: Exam: CT Head Without Contrast Exam date and time: 01/28/2023 5:14 PM Age: 37 years old Clinical indication: Pain; Syncope and collapse; Headache not specified; Additional info: ALCOCER TECHNIQUE: Imaging protocol: Computed tomography of the head without contrast. Radiation optimization: All CT scans at this facility use at least one of these dose optimization techniques: automated exposure control; mA and/or kV adjustment per patient size (includes targeted exams where dose is matched to clinical indication); or iterative reconstruction. REPORTING DATA: Count of CT and Cardiac NM exams in prior 12 months: This patient has received 0 known CTs and 0 known cardiac nuclear medicine studies in the 12 months prior to the current study. COMPARISON: No relevant prior studies available. RADIATION DOSE METRICS: Total DLP (mGy-cm): 1091.7 FINDINGS: Brain: No acute infarct. No hemorrhage. Unremarkable white matter for age. No mass effect. Cerebral ventricles: No ventriculomegaly. Paranasal sinuses: Visualized sinuses are unremarkable. No fluid levels. Mastoid air cells: Visualized mastoid air cells are well aerated. Bones/joints: Unremarkable. No acute fracture. Soft tissues: Unremarkable. CT/CT head wo con* [id number] IMPRESSION: No acute intracranial abnormality.
[2023-01-28 17:21] LABS: Basophils % 0.4 %; Eosinophils # 0.1 10^3/uL (0.0-0.8); Eosinophils % 1.6 %; Hematocrit 42.4 % (37.0-47.0); Hemoglobin 13.3 g/dL (11.5-15.3); Lymphocytes % 28.9 %; Mean Corpuscular HGB Conc 31.4 g/dL (30.0-36.0); Mean Corpuscular Hemoglobin 28.2 pg (28.0-34.0); Mean Corpuscular Volume 89.8 fl (81-99); Mean Platelet Volume 10.2 fL (7.4-10.4); Monocytes # 0.5 10^3/uL (0.2-0.9); Monocytes % 7.9 %; Neutrophils # 4.17 10^3/uL (1.8-7.7); Neutrophils % 60.9 %; Nucleated Red Blood Cells % 0 %; Platelet Count 253 10^3/cmm (130-400); Red Blood Count 4.72 10^6/uL (4.1-5.3); Red Cell Distribution Width 12.1 % (12.1-15.1); White Blood Count 6.9 10^3/uL (4.0-10.0)
[2023-01-28 17:33] LABS: HCG, Serum Qual Negative (Negative)
[2023-01-28 17:45] LABS: Alanine Aminotransferase 27 U/L (0-33); Alkaline Phosphatase 148 U/L (35-105); Anion Gap 11.7 (5-19); Aspartate Amino Transferase 26 U/L (0-32); Blood Urea Nitrogen 6 mg/dL (6-20); Carbon Dioxide 28 mmol/L (22-29); Chloride 99 mmol/L (98-107); Globulin 3.2 g/dL (1.3-4.6); Glomerular Filtration Rate 111.9 mL/min (90-130); Glucose 120 mg/dL (65-115); Lipase 13 U/L (13-60); Osmolality Calculated 279 mOsm/kg (285-295); Potassium 3.7 mmol/L (3.5-5.1); Sodium 135 mmol/L (136-145); Thyroid Stimulating Hormone 1.65 uIU/mL (0.27-4.20); Total Bilirubin 0.4 mg/dL (0.15-1.2); Total Protein 7.2 g/dL (6.6-8.7)
--- NOTE | 2023-01-28 17:57 | W.ED.HA ---
HPI - Headache General: Chief Complaint: Headache Stated Complaint: headache, syncope last night, dizzy Time Seen by Provider: 01/28/23 16:46 Source: patient Mode of arrival: ambulatory Limitations: no limitations History of Present Illness: 29-year-old female states she has a history of a migraine. She states that she has had a migraine headache over the last 5 days but is been changing. She took her Imitrex with no relief. States headaches currently 5-10 states she had some dizziness she was outside yesterday and had a syncopal event. She denies any fevers. Associated symptoms: Deny chest pain, fever(s), nausea, rash or vomiting Review of Systems Const: Denies: fever(s), chills, body aches or change in appetite Eyes: Reports: blurry vision ENMT: Denies: throat pain or dental pain Card: Denies: chest pain Resp: Denies: dyspnea GI: Denies: abdominal pain, nausea, vomiting or diarrhea Musc: Denies: neck pain or back pain Skin/Breast: Denies: rash Neuro: Reports: headache(s) Psych: Denies: depression PFSH ED PFSH: Medical History Contraception management Patient was counseled regarding all methods of contraception, long acting reversible contraception, indications, contraindications, side effects and complications. She elected for the levonorgestrel-releasing intrauterine system. Return next for insertion of the levonorgestrel-releasing intrauterine system. Time: 30 min. Surgical History History of cholecystectomy 10/2010 History of laminectomy L4-L5 History of tonsillectomy 09/2001 Hx of discectomy 06/2017 L4-L5 Family History Family/Other Diabetes Maternal aunt Breast cancer maternal aunt Heart disease paternal uncle Grandmother Diabetes maternal Grandfather Diabetes paternal Stroke maternal Sister Diabetes Father Diabetes Hypertension Cancer kidney Mother Diabetes Other Hyperlipidemia Lung disease Psychiatric illness Denies family history of CAD (coronary artery disease) Clotting disorder Dementia Chronic kidney disease (CKD) Anesthesia complication Bleeding disorder Social History Smoking and tobacco status: never smoked Second hand smoke exposure: No Alcohol intake: current Alcohol intake frequency: holidays/special occasions only Substance/Drug Use: never Lives independently: Yes Household members: children Marital status: Number of children: 2 Current occupational status: employed Current occupation: [employer]PARTMENT at [employer] Pets and animals: Yes Pets & animals: cat(s) Do you think of yourself as: Straight/Heterosexual Current gender identity: Female Special dotty needs: No Agree to transfusion: Yes Additional social history: well balanced diet Physical Exam Const: COMMON NORMALS: no acute distress, patient oriented x3 and healthy appearing HENMT: COMMON NORMALS: normocephalic and atraumatic HEAD & SCALP: normocephalic and atraumatic Eye: COMMON NORMALS: Equal, round and reactive pupils present and EOMs intact bilaterally PUPIL: Yes Equal, round and reactive pupils present Neck/C-Spine: COMMON NORMALS: full ROM and supple Chest: COMMONS NORMALS: normal inspection of the chest Resp: COMMON NORMALS: normal respiratory effort and No use of accessory muscles Cardio: COMMON NORMALS: regular rate, regular rhythm and No murmurs present (Cardio) RATE: regular rate RHYTHM: regular rhythm GI: INSPECTION: Yes normal to inspection Extremity: COMMON NORMALS: normal to inspection and full ROM Neuro: COMMON NORMALS: patient oriented x3, moves all extremities and no focal motor deficits Psych: COMMON NORMALS: mental status grossly normal, Normal thought process present and cooperative THOUGHT PROCESS: Normal thought process present Skin: COMMON NORMALS: no rashes or lesions noted and no wounds GENERAL SKIN EXAM: no rashes or lesions noted Course Vital Signs: Vital signs: Vital Signs Temperature 98.3 F 01/28/23 15:28 Pulse Rate 99 01/28/23 15:28 Respiratory Rate 16 01/28/23 15:28 Blood Pressure 135/83 01/28/23 15:28 Pulse Oximetry 96 01/28/23 15:28 Oxygen Delivery Me thod Room Air 01/28/23 15:28 MDM - Headache Medical Decision Making Patient presents here with headaches consistent migraine headache she feels much improved after Reglan Benadryl and DHE. Head CT blood work is all normal no sign of subarachnoid hemorrhage or meningitis. She is stable for discharge to follow-up with PCP and return if worsening. Differential Diagnosis Likely migraine; Unlikely subarachnoid hemorrhage or meningitis Medical Records I reviewed the patient's medical records. Lab Data I reviewed the patient's lab results. 01/28/23 17:04 01/28/23 17:[address] 01/28/23 16:46 IMPRESSION: No acute intracranial abnormality. Laboratory Results WBC 6.9 10^3/uL (4.0-10.0) 01/28/23 17:04 RBC 4.72 10^6/uL (4.1-5.3) 01/28/23 17:04 Hgb 13.3 g/dL (11.5-15.3) 01/28/23 17:04 Hct 42.4 % (37.0-47.0) 01/28/23 17:04 MCV 89.8 fl (81-99) 01/28/23 17:04 MCH 28.2 pg (28.0-34.0) 01/28/23 17:04 MCHC 31.4 g/dL (30.0-36.0) 01/28/23 17:04 RDW 12.1 % (12.1-15.1) 01/28/23 17:04 Plt Count 253 10^3/cmm (130-400) 01/28/23 17:04 MPV 10.2 fL (7.4-10.4) 01/28/23 17:04 Neut % (Auto) 60.9 % 01/28/23 17:04 Lymph % (Auto) 28.9 % 01/28/23 17:04 Chaves % (Auto) 7.9 % 01/28/23 17:04 Eos % (Auto) 1.6 % 01/28/23 17:04 Baso % (Auto) 0.4 % 01/28/23 17:04 Neut # (Auto) 4.17 10^3/uL (1.8-7.7) 01/28/23 17:04 Lymph # (Auto) 2.0 10^3/uL (0.8-4.8) 01/28/23 17:04 Chaves # (Auto) 0.5 10^3/uL (0.2-0.9) 01/28/23 17:04 Eos # (Auto) 0.1 10^3/uL (0.0-0.8) 01/28/23 17:04 Baso # (Auto) 0.0 10^3/uL (0.0-0.1) 01/28/23 17:04 Nucleated RBC % (auto) 0 % 01/28/23 17:04 Nucleated RBCs # 0.0 /100WBC 01/28/23 17:04 Sodium 135 mmol/L (136-145) L 01/28/23 17:04 Potassium 3.7 mmol/L (3.5-5.1) 01/28/23 17:04 Chloride 99 mmol/L (98-107) 01/28/23 17:04 Carbon Dioxide 28 mmol/L (22-29) 01/28/23 17:04 Anion Gap 11.7 (5-19) 01/28/23 17:04 BUN 6 mg/dL (6-20) 01/28/23 17:04 Creatinine 0.6 mg/dL (0.5-0.9) 01/28/23 17:04 GFR Calculation 111.9 mL/min (90-130) 01/28/23 17:04 Glucose 120 mg/dL (65-115) H 01/28/23 17:04 Calculated Osmolality 279 mOsm/kg (285-295) L 01/28/23 17:04 Calcium 9.0 mg/dL (8.5-10.5) 01/28/23 17:04 Total Bilirubin 0.4 mg/dL (0.15-1.2) 01/28/23 17:04 AST 26 U/L (0-32) 01/28/23 17:04 ALT 27 U/L (0-33) 01/28/23 17:04 Alkaline Phosphatase 148 U/L (35-105) H 01/28/23 17:04 Total Protein 7.2 g/dL (6.6-8.7) 01/28/23 17:04 Albumin 4.0 g/dL (3.5-5.2) 01/28/23 17:04 Globulin 3.2 g/dL (1.3-4.6) 01/28/23 17:04 Lipase 13 U/L (13-60) 01/28/23 17:04 TSH 1.65 uIU/mL (0.27-4.20) 01/28/23 17:04 HCG, Qual Negative (Negative) 01/28/23 17:04 Discharge Plan Discharge Patient Disposition: Home Clinical Impression: Migraine, Syncope Condition: Stable Prescriptions: No Action methylprednisolone acetate [Depo-Medrol] 80 mg/mL suspension 80 mg Infiltration ONCE Qty: 1 0RF albuterol sulfate 90 mcg/actuation HFA aerosol inhaler 2 inh inhalation Q4H PRN (Reason: shortness of breath or wheezing) Qty: 6.7 0RF sumatriptan succinate 100 mg tablet See Rx Instructions PO .COMPLEX Qty: 10 0RF Rx Instructions: take 1 tab at onset of headache; if no relief may repeat 1 tab after at least 2 hrs; max = 2 tabs/24 hr PO venlafaxine 150 mg capsule,extended release 24hr 150 mg PO DAILY Qty: 60 0RF fluticasone propionate [Flonase Allergy Relief] 50 mcg/actuation spray,suspension 2 spray intranasal DAILY Qty: 16 2RF Rx Instructions: administer into each nostril levocetirizine [Xyzal] 5 mg tablet 5 mg PO DAILY Qty: 30 1RF Excedrin Migraine 250-250-65 mg tablet 1 tab PO Q6H PRN prednisone 20 mg tablet 60 mg PO DAILY 5 Days Qty: 15 0RF methocarbamol 750 mg tablet 750 mg PO Q8H PRN (Reason: pain) Qty: 30 0RF omeprazole 40 mg capsule,delayed release(DR/EC) See Rx Instructions .ROUTE .COMPLEX Qty: 90 1RF Dose Instruction: take 1 capsule BY MOUTH EVERY DAY Rx Instructions: take 1 capsule BY MOUTH EVERY DAY bupropion HCl 300 mg tablet extended release 24 hr See Rx Instructions .ROUTE .COMPLEX Qty: 90 1RF Dose Instruction: TAKE 1 TABLET BY MOUTH EVERY MORNING Rx Instructions: TAKE 1 TABLET BY MOUTH EVERY MORNING gabapentin 300 mg capsule See Rx Instructions .ROUTE .COMPLEX Qty: 360 1RF Dose Instruction: take 1 capsule BY MOUTH EVERY MORNING, ONE AT NOON AND TWO AT BEDTIME Rx Instructions: take 1 capsule BY MOUTH EVERY MORNING, ONE AT NOON AND TWO AT BEDTIME montelukast 10 mg tablet See Rx Instructions .ROUTE .COMPLEX Qty: 90 1RF Dose Instruction: TAKE 1 TABLET BY MOUTH EVERY DAY Rx Instructions: TAKE 1 TABLET BY MOUTH EVERY DAY tizanidine 4 mg tablet See Rx Instructions .ROUTE .COMPLEX Qty: 180 1RF Dose Instruction: TAKE 1 TABLET BY MOUTH TWICE DAILY NEEDED FOR MUSCLE SPASTICITY Rx Instructions: TAKE 1 TABLET BY MOUTH TWICE DAILY NEEDED FOR MUSCLE SPASTICITY Discharge Orders: Discharge ED (Routine); Ordered 01/28/23 Ordered By: Kar Maharaj Referrals: Stiven Zuniga MD [Primary Care Provider] - 1-3 days Discharge Diet: Advance as tolerated Discharge Activity: Resume usual activity Patient Instructions: Headache - Migraine (Adult) Coding Level of Care Code ED 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
[2023-01-28] MEDS: sodium chloride 0.9% 1,000 ML 999 ML IV (18:20)
[2023-01-28] MEDS: dihydroergotamine 1 mg/mL Inj IVP (18:26)
[2023-01-28] MEDS: diphenhydrAMINE 50 mg/mL SDV 1mL IVP (18:55)
== END 2023-01-28 19:51 | disposition home or self-care (01) ==
PROVIDERS: Emergency Provider Emergency Medicine; PCP Family Medicine
DX: G43.909 Migraine, unspecified, not intractable, without status migrainosus (principal); R55 Syncope and collapse
CPT/HCPCS: 36415; 70450; 80053; 83690; 84443; 84703; 85025; 96361; 96374; 96375; 99285; J1110; J1200; J7030

== ENCOUNTER 2023-02-06 19:59 | Observation (INO) | payer OTHER, SELFPAY ==
[2023-02-06 20:00] VITALS: BMI 54.9
[2023-02-06 20:04] VITALS: BP 175/122; PULSE 113; RESP 16; TEMP 37.4; O2SAT 99
--- NOTE | 2023-02-06 20:05 | XRR_ITS ---
PROCEDURE INFORMATION: Exam: XR Chest Exam date and time: 02/06/2023 8:24 PM Age: 37 years old Clinical indication: Other: Syncope TECHNIQUE: Imaging protocol: Radiologic exam of the chest. Views: 1 view. COMPARISON: CR XR chest 1V portable [id number] 02/14/2020 11:08 PM FINDINGS: Lungs: Unremarkable. No consolidation. Pleural spaces: Unremarkable. No pleural effusion. No pneumothorax. Heart/Mediastinum: Unremarkable. No cardiomegaly. Bones/joints: Unremarkable. XR/XR chest 1V portable [id number] IMPRESSION: No acute findings.
--- NOTE | 2023-02-06 20:06 | ECG_ITS ---
[facility] Test Date: 2023-02-06 Pat Name: Bhaskar Clayton Department: Room: Gender: Female Blueprint Developer: : 1985 Requested By: Kar Maharaj Order Number: [id number] Ishan MD: Cirilo Rodriguez M.D. Measurements Intervals [place] Rate: 96 P: 38 MI: 169 QRS: 32 QRSD: 81 T: 35 QT: 344 QTc: 437 Interpretive Statements SINUS RHYTHM WITH SINUS ARRHYTHMIA No previous ECG available for comparison Electronically Signed On 02-07-2023 2:54:24 CDT by Cirilo Rodriguez M.D. [email or web address]
--- NOTE | 2023-02-06 20:12 | ED_ITS ---
HPI - Syncope General: Chief Complaint: Syncope Stated Complaint: syncope Time Seen by Provider: 02/06/23 20:00 Source: patient and EMS Mode of arrival: EMS Limitations: no limitations History of Present Illness: 37-year-old female has been having intermittent syncopal events over the last few months she does have a history of migraines as well. She was seen here a week ago had extensive work-up including a head CT that was all normal she had seen her PCP was concerned she may have POTS syndrome. She is scheduled for an EEG. States that day prior to arrival she had a syncopal event no known seizure did not hit her head denies any severe headache at this time. Associated symptoms: Reports headache(s); Deny abdominal pain, chest pain, fever(s) or nausea Review of Systems Const: Denies: fever(s), chills or body aches ENMT: Denies: throat pain or dental pain Card: Reports: syncope; Denies: chest pain Resp: Denies: dyspnea GI: Denies: abdominal pain, nausea, vomiting or diarrhea Musc: Denies: neck pain or back pain Skin/Breast: Denies: rash Neuro: Reports: headache(s) PFS ED PFSH: Medical History Contraception management Patient was counseled regarding all methods of contraception, long acting reversible contraception, indications, contraindications, side effects and complications. She elected for the levonorgestrel-releasing intrauterine system. Return next for insertion of the levonorgestrel-releasing intrauterine system. Time: 30 min. Surgical History History of cholecystectomy 10/2010 History of laminectomy L4-L5 History of tonsillectomy 09/2001 Hx of discectomy 06/2017 L4-L5 Family History Family/Other Diabetes Maternal aunt Breast cancer maternal aunt Heart disease paternal uncle Grandmother Diabetes maternal Grandfather Diabetes paternal Stroke maternal Sister Diabetes Father Diabetes Hypertension Cancer kidney Mother Diabetes Other Hyperlipidemia Lung disease Psychiatric illness Denies family history of CAD (coronary artery disease) Clotting disorder Dementia Chronic kidney disease (CKD) Anesthesia complication Bleeding disorder Social History Smoking and tobacco status: never smoked Second hand smoke exposure: No Alcohol intake: current Alcohol intake frequency: holidays/special occasions only Substance/Drug Use: never Lives independently: Yes Household members: children Marital status: Number of children: 2 Current occupational status: employed Current occupation: [employer] at [employer] Pets and animals: Yes Pets & animals: cat(s) Do you think of yourself as: Straight/Heterosexual Current gender identity: Female Special dotty needs: No Agree to transfusion: Yes Additional social history: well balanced diet Female Reproductive History: Date of last menstrual period: 01/15/23 Physical Exam Const: COMMON NORMALS: no acute distress, patient oriented x3 and healthy appearing HENMT: COMMON NORMALS: normocephalic and atraumatic HEAD & SCALP: normocephalic and atraumatic Eye: COMMON NORMALS: conjunctivae normal CONJUNCTIVA: Yes conjunctivae normal Neck/C-Spine: COMMON NORMALS: full ROM and supple Chest: COMMONS NORMALS: normal inspection of the chest Resp: COMMON NORMALS: normal respiratory effort, No retractions, No use of accessory muscles and clear to auscultation bilaterally AUSCULTATION: clear to auscultation bilaterally Cardio: COMMON NORMALS: regular rate, regular rhythm and No murmurs present (Cardio) RATE: regular rate RHYTHM: regular rhythm GI: INSPECTION: Yes normal to inspection Extremity: COMMON NORMALS: normal to inspection Neuro: COMMON NORMALS: patient oriented x3, moves all extremities and no focal motor deficits Psych: COMMON NORMALS: mental status grossly normal, Normal thought process present and cooperative THOUGHT PROCESS: Normal thought process present Skin: COMMON NORMALS: no rashes or lesions noted and no wounds GENERAL SKIN EXAM: no rashes or lesions noted Course Vital Signs: Vital signs: Vital Signs Temperature 99.4 F 02/06/23 20:04 Pulse Rate 107 H 02/06/23 21:11 Respiratory Rate 16 02/06/23 21:11 Blood Pressure 126/93 02/06/23 21:11 Pulse Oximetry 97 02/06/23 21:11 Oxygen Delivery Me thod Room Air 02/06/23 20:04 MDM - Syncope Medical Decision Making Patient presents here with syncope it does seem to be postural in nature with her orthostatics here she did pass out when she stood had tachycardia we will send off a D-dimer and cardiac enzymes spoke to the hospitalist and will admit for observation she had a recent head CT is normal blood work here here has been normal so far. Medical Records I reviewed the patient's medical records. Lab Data I reviewed the patient's lab results. 02/06/23 20:15 02/06/23 20:15 Radiology Impressions Chest X-Ray 02/06/23 20:05 IMPRESSION: No acute findings. Laboratory Results WBC 9.6 10^3/uL (4.0-10.0) 02/06/23 20:15 RBC 4.69 10^6/uL (4.1-5.3) 02/06/23 20:15 Hgb 13.4 g/dL (11.5-15.3) 02/06/23 20:15 Hct 43.4 % (37.0-47.0) 02/06/23 20:15 MCV 92.5 fl (81-99) 02/06/23 20:15 MCH 28.6 pg (28.0-34.0) 02/06/23 20:15 MCHC 30.9 g/dL (30.0-36.0) 02/06/23 20:15 RDW 12.2 % (12.1-15.1) 02/06/23 20:15 Plt Count 279 10^3/cmm (130-400) 02/06/23 20:15 MPV 10.6 fL (7.4-10.4) H 02/06/23 20:15 Neut % (Auto) 62.5 % 02/06/23 20:15 Lymph % (Auto) 27.0 % 02/06/23 20:15 [place] % (Auto) 7.8 % 02/06/23 20:15 Eos % (Auto) 1.8 % 02/06/23 20:15 Baso % (Auto) 0.5 % 02/06/23 20:15 Neut # (Auto) 6.03 10^3/uL (1.8-7.7) 02/06/23 20:15 Lymph # (Auto) 2.6 10^3/uL (0.8-4.8) 02/06/23 20:15 [place] # (Auto) 0.8 10^3/uL (0.2-0.9) 02/06/23 20:15 Eos # (Auto) 0.2 10^3/uL (0.0-0.8) 02/06/23 20:15 Baso # (Auto) 0.1 10^3/uL (0.0-0.1) 02/06/23 20:15 Nucleated RBC % (auto) 0 % 02/06/23 20:15 Nucleated RBCs # 0.0 /100WBC 02/06/23 20:15 Sodium 136 mmol/L (136-145) 02/06/23 20:15 Potassium 3.7 mmol/L (3.5-5.1) 02/06/23 20:15 Chloride 102 mmol/L (98-107) 02/06/23 20:15 Carbon Dioxide 20 mmol/L (22-29) L 02/06/23 20:15 Anion Gap 17.7 (5-19) 02/06/23 20:15 BUN 6 mg/dL (6-20) 02/06/23 20:15 Creatinine 0.6 mg/dL (0.5-0.9) 02/06/23 20:15 GFR Calculation 111.9 mL/min (90-130) 02/06/23 20:15 Glucose 135 mg/dL (65-115) H 02/06/23 20:15 POC Glucose 148 mg/dL (70-110) H 02/06/23 20:13 Calculated Osmolality 282 mOsm/kg (285-295) L 02/06/23 20:15 Calcium 9.0 mg/dL (8.5-10.5) 02/06/23 20:15 Total Bilirubin 0.2 mg/dL (0.15-1.2) 02/06/23 20:15 AST 34 U/L (0-32) H 02/06/23 20:15 ALT 27 U/L (0-33) 02/06/23 20:15 Alkaline Phosphatase 155 U/L (35-105) H 02/06/23 20:15 Total Protein 7.1 g/dL (6.6-8.7) 02/06/23 20:15 Albumin 3.6 g/dL (3.5-5.2) 02/06/23 20:15 Globulin 3.5 g/dL (1.3-4.6) 02/06/23 20:15 HCG, Qual Negative (Negative) 02/06/23 20:15 EKG Data EKG 1: I personally reviewed and interpreted this EKG as follows: EKG interpretation date: 02/06/23 EKG interpretation time: 20:05 Interpretation: nsr hr [address] or t wave abnormalities qrs 81 qtc 398 Discharge Plan Discharge Patient Disposition: Placed in Observation Clinical Impression: Syncope Condition: Stable Prescriptions: No Action methylprednisolone acetate [Depo-Medrol] 80 mg/mL suspension 80 mg Infiltration ONCE Qty: 1 0RF albuterol sulfate 90 mcg/actuation HFA aerosol inhaler 2 inh inhalation Q4H PRN (Reason: shortness of breath or wheezing) Qty: 6.7 0RF sumatriptan succinate 100 mg tablet See Rx Instructions PO .COMPLEX Qty: 10 0RF Rx Instructions: take 1 tab at onset of headache; if no relief may repeat 1 tab after at least 2 hrs; max = 2 tabs/24 hr PO fluticasone propionate [Flonase Allergy Relief] 50 mcg/actuation spray,suspen veronique 2 spray intranasal DAILY Qty: 16 2RF Rx Instructions: administer into each nostril levocetirizine [Xyzal] 5 mg tablet 5 mg PO DAILY Qty: 30 1RF bupropion HCl [Wellbutrin SR] 150 mg tablet sustained-release 12 hr 150 mg PO DAILY Qty: 14 0RF bupropion HCl 75 mg tablet 75 mg PO BID Qty: 14 0RF Rx Instructions: to start on 02/16/23 after 14 days of 150mg tablet Excedrin Migraine 250-250-65 mg tablet 1 tab PO Q6H PRN omeprazole 40 mg capsule,delayed release(DR/EC) See Rx Instructions .ROUTE .COMPLEX Qty: 90 1RF Dose Instruction: take 1 capsule BY MOUTH EVERY DAY Rx Instructions: take 1 capsule BY MOUTH EVERY DAY gabapentin 300 mg capsule See Rx Instructions .ROUTE .COMPLEX Qty: 360 1RF Dose Instruction: take 1 capsule BY MOUTH EVERY MORNING, ONE AT NOON AND TWO AT BEDTIME Rx Instructions: take 1 capsule BY MOUTH EVERY MORNING, ONE AT NOON AND TWO AT BEDTIME montelukast 10 mg tablet See Rx Instructions .ROUTE .COMPLEX Qty: 90 1RF Dose Instruction: TAKE 1 TABLET BY MOUTH EVERY DAY Rx Instructions: TAKE 1 TABLET BY MOUTH EVERY DAY tizanidine 4 mg tablet See Rx Instructions .ROUTE .COMPLEX Qty: 180 1RF Dose Instruction: TAKE 1 TABLET BY MOUTH TWICE DAILY NEEDED FOR MUSCLE SPASTICITY Rx Instructions: TAKE 1 TABLET BY MOUTH TWICE DAILY NEEDED FOR MUSCLE SPASTICITY venlafaxine 150 mg capsule,extended release 24hr 150 mg PO DAILY Qty: 60 0RF Referrals: Stiven Zuniga MD [Primary Care Provider] - Coding Level of Care Code ED Grain Scooper for Chg Ana Cristina
[2023-02-06 20:17] LABS: Glucose Point of Care 148 mg/dL (70-110)
[2023-02-06] MEDS: morphine 4 mg/mL SDV 1 mL IVP (20:19)
[2023-02-06] MEDS: ondansetron 2 mg/ML SDV 2 mL 4 MG IVP (20:19)
[2023-02-06 20:30] LABS: Basophils # 0.1 10^3/uL (0.0-0.1); Basophils % 0.5 %; Eosinophils # 0.2 10^3/uL (0.0-0.8); Eosinophils % 1.8 %; Hematocrit 43.4 % (37.0-47.0); Hemoglobin 13.4 g/dL (11.5-15.3); Lymphocytes # 2.6 10^3/uL (0.8-4.8); Mean Corpuscular HGB Conc 30.9 g/dL (30.0-36.0); Mean Corpuscular Hemoglobin 28.6 pg (28.0-34.0); Mean Corpuscular Volume 92.5 fl (81-99); Mean Platelet Volume 10.6 fL (7.4-10.4); Monocytes # 0.8 10^3/uL (0.2-0.9); Monocytes % 7.8 %; Neutrophils # 6.03 10^3/uL (1.8-7.7); Neutrophils % 62.5 %; Nucleated Red Blood Cells % 0 %; Platelet Count 279 10^3/cmm (130-400); Red Blood Count 4.69 10^6/uL (4.1-5.3); Red Cell Distribution Width 12.2 % (12.1-15.1); White Blood Count 9.6 10^3/uL (4.0-10.0)
[2023-02-06 20:45] LABS: HCG, Serum Qual Negative (Negative)
[2023-02-06 20:49] LABS: Alanine Aminotransferase 27 U/L (0-33); Albumin Level 3.6 g/dL (3.5-5.2); Alkaline Phosphatase 155 U/L (35-105); Aspartate Amino Transferase 34 U/L (0-32); Blood Urea Nitrogen 6 mg/dL (6-20); Carbon Dioxide 20 mmol/L (22-29); Chloride 102 mmol/L (98-107); Globulin 3.5 g/dL (1.3-4.6); Glomerular Filtration Rate 111.9 mL/min (90-130); Glucose 135 mg/dL (65-115); Osmolality Calculated 282 mOsm/kg (285-295); Sodium 136 mmol/L (136-145); Total Bilirubin 0.2 mg/dL (0.15-1.2); Total Protein 7.1 g/dL (6.6-8.7)
[2023-02-06 20:52] LABS: Anion Gap 17.7 (5-19); Potassium 3.7 mmol/L (3.5-5.1)
--- NOTE | 2023-02-06 20:59 | PC.NURSE ---
Orthostatics completed by PCT. Orthostatics are as follows: Layin BPM, BP 134/82 Sittin BPM. BP 149/92 Standin BPM, BP 156/108 Upon standing, PCT reported to RN that pt passed out. PCT eased pt back into bed, denying fall. Pt is currently resting in bed at this time. notified.
[2023-02-06 21:11] VITALS: BP 126/93; PULSE 107; RESP 16; O2SAT 97
[2023-02-06 21:50] VITALS: BP 126/93; PULSE 107; RESP 16; TEMP 37.4; O2SAT 97
--- NOTE | 2023-02-06 22:08 | PM.HP ---
Providers/Chief Complaint Admitting Physician: Rossy Soriano MD Primary Care Provider: Stiven Zuniga MD Chief Complaint: syncope History of Present Illness Bhaskar Clayton is a 37 year old female with past medical history of asthma, migraines, depression, irritable bowel syndrome with chronic diarrhea, status post cholecystectomy 2010 presented to the hospital with complaint of syncopal episode that she had a discharge today. She said that after offering prior she felt very lightheaded and dizzy and had to sit down and the next thing he knows she found herself on the floor. She states she had passed out for more than a couple seconds. When she woke up EMS was present. She was brought to the hospital. She recently saw her primary care doctor who has her scheduled for an EEG on March 01 and also to set up with a cardiac event monitor on February 14. She does not have a history of seizures. Did not hit her head. Did not have any other symptoms today. She does feel slightly nauseated however did not experience that this morning when she went down. She states the syncopal episodes pretty much started 2-1/2 weeks ago. She believes she drinks enough water to keep yourself hydrated and is not related to dehydration. She says it did not happen last summer. Patient is concerned that she may have pots syndrome. She does get tachycardic upon movement of head left to right. Also feels lightheaded when she moves her head left or right. She did come to the ER on 28 January for complaint of headache. CT head was negative. She was given Reglan Benadryl DHE. She again had a headache subsequently after going home and had another syncopal event there. She also had a similar event at the doctor's office when patient was moved from chair to examination table. She became more lethargic verbally fatigued looking hard time finding words. Heart rate was greater than 100 at that point. She did not lose consciousness. She does admit to stressors at home being a single mother as she told her primary care doctor. Wellbutrin dose was reduced at her PCP visit and she is currently on a taper at this time. I have discussed with the patient regarding a tilt table test in the future. When seen she denies nausea or vomiting chest pain, shortness of breath. Does appear slightly anxious. Medications/Allergies Home Medications Medication Instructions Recorded Confirmed Last Taken Type xomektc-caayxmgcikzoo-mpzoikcb 250 1 tab PO Q6H PRN 04/27/22 02/01/23 Unknown History mg-250 mg-65 mg tablet (Excedrin Migraine) albuterol sulfate 90 mcg/actuation 2 inh inhalation Q4H PRN shortness 11/01/22 02/01/23 Unknown Rx aerosol inhaler of breath or wheezing #6.7 grams sumatriptan succinate 100 mg tablet See Rx Instructions PO .COMPLEX 12/08/22 02/01/23 Unknown Rx #10 tabs fluticasone propionate 50 2 spray intranasal DAILY #16 grams 12/20/22 02/01/23 Unknown Rx mcg/actuation nasal spray,suspension (Flonase Allergy Relief) levocetirizine 5 mg tablet (Xyzal) 5 mg PO DAILY #30 tabs 12/20/22 02/01/23 Unknown Rx gabapentin 300 mg capsule See Rx Instructions .Route 01/22/23 02/01/23 Unknown Rx .COMPLEX #360 caps montelukast 10 mg tablet See Rx Instructions .Route 01/22/23 02/01/23 Unknown Rx .COMPLEX #90 tabs omeprazole 40 mg capsule,delayed See Rx Instructions .Route 01/22/23 02/01/23 Unknown Rx release .COMPLEX #90 caps tizanidine 4 mg tablet See Rx Instructions .Route 01/22/23 02/01/23 Unknown Rx .COMPLEX #180 tabs bupropion HCl 150 mg tablet,12 hr 150 mg PO DAILY #14 tabs 02/01/23 02/01/23 Unknown Rx sustained-release (Wellbutrin SR) bupropion HCl 75 mg tablet 75 mg PO BID #14 tabs 02/01/23 02/01/23 Unknown Rx venlafaxine 150 mg 150 mg PO DAILY #60 caps 02/02/23 Unknown Rx capsule,extended release 24 hr Allergies Allergy/AdvReac Type Severity Reaction Status Date / Time adhesive Allergy Severe skin tears Verified 02/01/23 15:08 Pertussis Vaccines Allergy Severe anaphylaxis Verified 02/01/23 15:08 topiramate [From Topamax] Allergy Intermediate Unknown Verified 02/01/23 15:08 metformin Allergy Mild rash Verified 02/01/23 15:08 nalbuphine [From Nubain] Allergy projectile Verified 02/01/23 15:08 vomiting PFSH Acute PFSH: Medical History Contraception management Patient was counseled regarding all methods of contraception, long acting reversible contraception, indications, contraindications, side effects and complications. She elected for the levonorgestrel-releasing intrauterine system. Return next for insertion of the levonorgestrel-releasing intrauterine system. Time: 30 min. Surgical History History of cholecystectomy 10/2010 History of laminectomy L4-L5 History of tonsillectomy 09/2001 Hx of discectomy 06/2017 L4-L5 Family History Family/Other Diabetes Maternal aunt Breast cancer maternal aunt Heart disease paternal uncle Grandmother Diabetes maternal Grandfather Diabetes paternal Stroke maternal Sister Diabetes Father Diabetes Hypertension Cancer kidney Mother Diabetes Other Hyperlipidemia Lung disease Psychiatric illness Denies family history of CAD (coronary artery disease) Clotting disorder Dementia Chronic kidney disease (CKD) Anesthesia complication Bleeding disorder Social History Smoking and tobacco status: never smoked Second hand smoke exposure: No Alcohol intake: current Alcohol intake frequency: holidays/special occasions only Substance/Drug Use: never Lives independently: Yes Household members: children Marital status: Number of children: 2 Current occupational status: employed Current occupation: [employer] at [employer] Pets and animals: Yes Pets & animals: cat(s) Do you think of yourself as: Straight/Heterosexual Current gender identity: Female Special dotty needs: No Agree to transfusion: Yes Additional social history: well balanced diet Female Reproductive History: Date of last menstrual period: 01/15/23 Vitals/I&O/Wt Last Vital Signs Temp 99.4 F 02/06/23 21:50 Pulse 107 H 02/06/23 21:50 Resp 16 02/06/23 21:50 BP 126/93 02/06/23 21:50 Pulse Ox 97 02/06/23 21:50 O2 Del Method Room Air 02/06/23 20:04 Weight last 48 hrs Weight 168.736 kg Physical Exam Narrative: General: Alert oriented x3, patient seen laying in bed. Cranial nerves intact. Does complain of mild lightheadedness upon movement of head from left to right. Appears worried and slightly anxious. HEENT: Normocephalic, atraumatic, EOMI, Cardio: Regular rate rhythm, does get tachycardic upon movement., normal S1-S2, Respiratory: Clear to auscultation bilaterally no wheezes or rhonchi at this time. GI: Abdomen soft, nontender, nondistended, bowel sounds + Extremities: unremarkable Patient again complains of lightheadedness when sitting up for examination. Gets tachycardic Data 02/06/23 20:15 02/06/23 20:15 A&P Assessment and plan (1) Syncope: (2) POTS (postural orthostatic tachycardia syndrome): (3) Pre-diabetes: (4) Migraine headache: (5) Asthma: Qualifiers: Asthma severity: moderate Asthma persistence: persistent Asthma complication type: with status asthmaticus Qualified Code(s): J45.42 - Moderate persistent asthma with status asthmaticus (6) Chronic diarrhea: Plan #Syncopal events #Positive orthostatic vital signs #Concern for POTS? #Hx of migraines #Hx of depression #IBS, Chronic diarrhea (4-5 x/day) #Dehydration? #Asthma controlled - Ortho positive. Place on NS 125 cc/hr. Recheck ortho in AM. - Place on cardiac tele. Event monitor at dc - EEG scheduled for march 01. Consider neuro eval - Events possibly stress related? - Tilt table testing recommended. Talked to patient about this. Will need to be setup in [place] - R/o arrythmia although less likely the cause - Conitnue to taper wellbutrin - Continue Rest of home medications - MOnitor in hospital setting overnight - Replete electrolytes as needed - CT head negative - Check carotid dopplers, cardiac echo - Possibility of BPPV? At times she does report room spinning sensation upon movement of head. Try gabriel-halpike maneuvers. - PT - Dimer level and trops pending at this time - Check TSH Full Code Lovenox 40 daily Attestations Medical Necessity Statement*: Observation overnight for syncope Coding Level of Care Code G0426 (50 min) TH Encounter Time (min): 55 Patient seen via Telehealth in the acute care setting (hospital or ED location) by agreement and consent of patient or patient fraud representative. Telehealth technology used during the visit includes video and audio. This patient encounter is appropriate and reasonable under the circumstances given the patient?s particular presentation at this time. The patient has been advised of the potential risks and limitations of this mode of treatment (including but not limited to the absence of in-person examination at this time) and has agreed to be treated by an off-site physician for this visit. If deemed clinically necessary from this telehealth visit, or if condition or consent for telehealth visit changes, an in-person visit will be arranged. For this encounter, total time for the origination of telehealth care on this date is as shown. Diagnoses Syncope R55 POTS (postural orthostatic tachycardia syndrome) G90.A Pre-diabetes R73.03 Migraine headache G43.909 Asthma J45.42 Asthma severity: moderate Asthma persistence: persistent Asthma complication type: with status asthmaticus Chronic diarrhea K52.9
[2023-02-06 22:13] LABS: Troponin(5th) Baseline 6 ng/L (0-10)
[2023-02-06 22:40] VITALS: BP 125/81; PULSE 99; RESP 17; TEMP 36.4; O2SAT 97
--- NOTE | 2023-02-06 22:43 | USCV_ITS ---
Bhaskar Clayton Age: 37 Gender: F : 1985 Exam Date: 02/06/2023 23:56 Ordering Phys: Rossy Soriano MD Technologist: MARILYN [place] [facility] [place]: multiple intermittent syncopal events in the last month. Normal head CT 1 week ago. Risk Factors: never smoked, no DM Previous Vascular Surgery: Noone Right Brachial BP: 126 / 93 Left Brachial BP: / Right Left Velocity (cm/s) Spectral Plaque Velocity (cm/s) Spectral Plaque Syst/Diast Broadening Syst/Diast Broadening 111.40/22.10 None None Prox CCA 156.90/ 41.90 None None 101.40/19.80 Min Homo Mid CCA 118.10/ 35.70 Min Homo 89.30/ 26.50 None Homo Distal CCA 111.90/ 28.00 None Homo 94.80/ 23.20 Min Homo Prox ICA 87.10 / 27.60 Min Homo 93.70/ 34.20 None None Mid ICA 94.80 / 44.10 None None 75.00/ 37.50 None None Distal ICA 94.80 / 44.10 None None 103.60 Min None ECA 72.60 Min None 0.85 ICA/CCA 0.60 Antegrade Vertebral Antegrade 50.70/ 20.90 cm/s 57.50/ 20.20 cm/s Tri Subclavian Tri 133.6 132.1 0 0 CONCLUSIONS Right ICA stenosis <50%. Mild atheromatous plaque right carotid bulb/ICA. Left ICA stenosis <50%. Mild atheromatous plaque left carotid bulb/ICA. Normal antegrade Doppler flow noted in the right vertebral artery. Normal antegrade Doppler flow noted in the left vertebral artery. Tang Rosenthal MD (Electronically Signed) Final Date: 07 February 2023 10:18 S
[2023-02-06] MEDS: enoxaparin 40 mg/0.4 mL Syringe SUBCUT (22:58)
[2023-02-06] MEDS: montelukast sodium 10 mg Tablet PO (22:58)
[2023-02-06] MEDS: sodium chloride 0.9% 1,000 ML 999 ML IV (22:59)
[2023-02-06 23:07] LABS: D Dimer 0.38 ug/mIFEU (0-0.59)
--- NOTE | 2023-02-06 23:11 | ECG_ITS ---
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 Measurements Intervals [place] Rate: 99 P: 39 VA: 152 QRS: 56 QRSD: 101 T: 47 QT: 373 QTc: 480 Interpretive Statements SINUS RHYTHM Compared to ECG 02/06/2023 20:05:17 Sinus arrhythmia no longer present Electronically Signed On 02-07-2023 6:19:01 CDT by Hannah Peralta M.D. [id number]
[2023-02-06 23:19] LABS: Thyroid Stimulating Hormone 3.05 uIU/mL (0.27-4.20)
[2023-02-06 23:28] LABS: Troponin 5 2HR Delta 0 ABS# (0-10)
[2023-02-07] VITALS (10 sets, daily range): BP systolic 111–166; BP diastolic 64–90; PULSE 81–116; RESP 16–21; TEMP 36.3–36.8; O2SAT 94–97
[2023-02-07] MEDS: sodium chloride 0.9% 1,000 ML 150 ML IV ×4 (00:17→23:10)
[2023-02-07] MEDS: acetaminophen 325 mg Tablet 650 MG PO ×2 (01:55→05:16)
[2023-02-07] MEDS: ondansetron 2 mg/ML SDV 2 mL 4 MG IVP (01:56)
[2023-02-07 02:02] LABS: Basophils % 0.4 %; Eosinophils # 0.1 10^3/uL (0.0-0.8); Eosinophils % 1.5 %; Hematocrit 36.5 % (37.0-47.0); Hemoglobin 11.3 g/dL (11.5-15.3); Lymphocytes # 2.4 10^3/uL (0.8-4.8); Lymphocytes % 31.8 %; Mean Corpuscular Hemoglobin 27.8 pg (28.0-34.0); Mean Corpuscular Volume 89.9 fl (81-99); Mean Platelet Volume 10.3 fL (7.4-10.4); Monocytes # 0.6 10^3/uL (0.2-0.9); Monocytes % 7.9 %; Neutrophils # 4.38 10^3/uL (1.8-7.7); Nucleated Red Blood Cells % 0 %; Platelet Count 224 10^3/cmm (130-400); Red Blood Count 4.06 10^6/uL (4.1-5.3); Red Cell Distribution Width 12.2 % (12.1-15.1); White Blood Count 7.6 10^3/uL (4.0-10.0)
[2023-02-07 02:23] LABS: Anion Gap 12.7 (5-19); Blood Urea Nitrogen 7 mg/dL (6-20); Calcium 8.1 mg/dL (8.5-10.5); Carbon Dioxide 26 mmol/L (22-29); Chloride 103 mmol/L (98-107); Glomerular Filtration Rate 93.6 mL/min (90-130); Glucose 235 mg/dL (65-115); Osmolality Calculated 292 mOsm/kg (285-295); Potassium 3.7 mmol/L (3.5-5.1); Sodium 138 mmol/L (136-145); Troponin 5 6HR Delta 0 ng/L (0-12)
--- NOTE | 2023-02-07 05:36 | ECG_ITS ---
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 Measurements Intervals [place] Rate: 80 P: 38 WI: 187 QRS: 41 QRSD: 90 T: 45 QT: 403 QTc: 467 Interpretive Statements SINUS RHYTHM POSSIBLE ANTERIOR MYOCARDIAL INFARCTION , PROBABLY OLD [30 ms Q WAVE IN V3/V4, OR R < 0.2 mV IN V4] Compared to ECG 02/07/2023 01:24:27 Myocardial infarct finding now present Electronically Signed On 02-07-2023 12:31:31 CDT by Cirilo Rodriguez M.D. [id number]
[2023-02-07] MEDS: perflutren protein-a microsphr 0.22 mg/mL SDV 3 mL IV (05:46)
[2023-02-07] MEDS: SUMAtriptan 25 mg Tablet 100 MG PO (09:25)
[2023-02-07] MEDS: pantoprazole DR 40 mg Tablet PO (09:25)
[2023-02-07] MEDS: venlafaxine ER (24HR) 150 mg Capsule PO (09:25)
[2023-02-07] MEDS: montelukast sodium 10 mg Tablet PO (09:25)
[2023-02-07] MEDS: buPROPion SR (12 HR) 150 mg Tablet PO (09:25)
--- NOTE | 2023-02-07 13:58 | P.PN_ITS ---
Subjective Subjective: Patient was seen this morning, she tells me that she has been recurrently passing out, sometimes this is associate with position, sometimes it is not, Vitals/I&O/Wt Last Vital Signs Temp 97.6 F 02/07/23 12:00 Pulse 86 02/07/23 12:00 Resp 17 02/07/23 12:00 BP 144/88 02/07/23 12:00 Pulse Ox 97 02/07/23 12:00 O2 Del Method Room Air 02/07/23 12:00 02/06/23 02/07/23 02/07/23 22:59 06:59 14:59 Intake Total 1999 840 / 840 Balance 1999 840 / 840 Weight last 48 hrs Weight 168.736 kg Physical Exam Const: COMMON NORMALS: no acute distress and patient oriented x3 Resp: COMMON NORMALS: normal respiratory effort, No retractions, No use of accessory muscles and clear to auscultation bilaterally AUSCULTATION: clear to auscultation bilaterally Cardio: COMMON NORMALS: regular rate, regular rhythm, S1 normal heart sound present and S2 normal heart sound present RATE: regular rate RHYTHM: regular rhythm HEART SOUNDS: S1 normal heart sound present and S2 normal heart sound present GI: COMMON NORMALS: Normal to inspection, nondistended, normoactive bowel sounds present and non-tender Extremity: COMMON NORMALS: no pedal edema Neuro: COMMON NORMALS: patient oriented x3 Psych: COMMON NORMALS: mental status grossly normal Data 02/07/23 01:52 02/07/23 01:52 A&P Assessment and plan (1) Syncope: (2) POTS (postural orthostatic tachycardia syndrome): (3) Pre-diabetes: (4) Migraine headache: (5) Asthma: Qualifiers: Asthma severity: moderate Asthma persistence: persistent Asthma complication type: with status asthmaticus Qualified Code(s): J45.42 - Moderate persistent asthma with status asthmaticus (6) Chronic diarrhea: Plan #Syncopal events #Positive orthostatic vital signs #Concern for POTS? #Hx of migraines #Hx of depression #IBS, Chronic diarrhea (4-5 x/day) #Dehydration? #Asthma controlled - Ortho positive. Place on NS 125 cc/hr. recheck orthostatic vitals - Place on cardiac tele. Event monitor at [place] - EEG scheduled for march 01. - Tilt table testing recommended. Talked to patient about this. Will need to be setup in [place] - R/o arrythmia although less likely the cause - Conitnue to taper wellbutrin - Continue Rest of home medications - MOnitor in hospital setting overnight - Replete electrolytes as needed - CT head negative - Check carotid dopplers, cardiac echo ordered - Possibility of BPPV? At times she does report room spinning sensation upon movement of head. Try gabriel-halpike maneuvers. - PT -6-hour troponin 0 -TSH negative Full Code Lovenox 40 daily Attestations Medical Necessity Statement*: Patient requires hospitalization for syncopal episodes Diagnoses Syncope R55 POTS (postural orthostatic tachycardia syndrome) G90.A Pre-diabetes R73.03 Migraine headache G43.909 Asthma J45.42 Asthma severity: moderate Asthma persistence: persistent Asthma complication type: with status asthmaticus Chronic diarrhea K52.9
[2023-02-07] MEDS: metoclopramide 5 mg/mL SDV 2 mL IVP (14:58)
[2023-02-07] MEDS: diphenhydrAMINE 50 mg/mL SDV 1mL 25 MG IVP (14:59)
--- NOTE | 2023-02-07 22:39 | USCV_ITS ---
Bhaskar Clayton Age: 37 Gender: F : 1985 Exam Date: 02/07/2023 03:10 Ordering Phys: Rossy Soriano MD Technologist: MARILYN [place] [facility] [place]: multiple syncopal episodes in the last month. No history of cardiac intervention per patient. BP: 126 / 93 HR: 92 Rhythm: Sinus Technical Quality: Fair with [employer] MEASUREMENTS (Male / Female) Normal Values 2D ECHO LV Diastolic Diameter PLAX 4.1 cm 4.2 - 5.9 / 3.9 - 5.3 cm LV Systolic Diameter PLAX 2.8 cm IVS Diastolic Thickness 1.4 cm 0.6 - 1.0 / 0.6 - 0.9 cm IVS Systolic Thickness 1.7 cm LVPW Diastolic Thickness 1.4 cm 0.6 - 1.0 / 0.6 - 0.9 cm LVPW Systolic Thickness 1.8 cm LVOT Diameter 2.0 cm LV Ejection Fraction 2D Teich 60.3 % LV Ejection Fraction MOD 2C 56.4 % LV Ejection Fraction 2C AL 56.2 % LA Diameter 3.5 cm LA Width 3.7 cm LA Height 5.9 cm RA Width 3.9 cm RA Height 4.1 cm Aorta at Sinotubular Diameter 3.2 cm IVC Diameter 1.3 cm M-MODE Aortic Annulus Diameter 3.0 cm LA Ao Ratio MM 1.3 MV E Point Septal Separation 0.5 cm DOPPLER AV Peak Velocity 139.0 cm/s LVOT Peak Velocity 101.0 cm/s AV Area Cont Eq vti 2.6 cm squared AV Area Cont Eq pk 2.2 cm squared MV Area PHT 2.3 cm squared Mitral E to A Ratio 0.9 MV E' Velocity 44.5 cm/s Mitral E to MV E' Ratio 7.1 Mitral E to LV E' Lateral Ratio 6.4 Mitral E to LV E' Septal Ratio 8.1 TV Peak E Velocity 49.0 cm/s PV Peak Velocity 88.0 cm/s RV Acceleration Time 0.2 s RV Ejection Time 0.4 s RV AcT/ET 0.4 FINDINGS Left Ventricle Technically limited quality echocardiogram because of poor ultrasonic windows. LV systolic function is normal with EF of 55 to 60%. No regional wall motion abnormalities are seen. Grade 1 diastolic dysfunction. Right Ventricle Grossly normal in size and function Right Atrium Not well visualized Left Atrium Grossly normal Mitral Valve Grossly normal. Aortic Valve Not well visualized Tricuspid Valve Trace tricuspid regurgitation. Insufficient TR jet to calculate RVSP Pulmonic Valve Not visualized. Pericardium Grossly normal Aorta Normal in size IVC Appears to be normal CONCLUSIONS Technically very limited quality echocardiogram because of poor ultrasonic windows. LV systolic function is normal with EF 55 to 60% Grade 1 diastolic dysfunction Trace tricuspid regurgitation Valvular structures are not well visualized. No comparison studies are available Cirilo Rodriguez MD (Electronically Signed) Final Date: 07 February 2023 11:15 S
[2023-02-07] MEDS: enoxaparin 40 mg/0.4 mL Syringe SUBCUT (23:08)
[2023-02-08] VITALS (8 sets, daily range): BP systolic 113–155; BP diastolic 61–103; PULSE 81–114; RESP 15–18; TEMP 36.6–36.8; O2SAT 88–97
[2023-02-08 04:13] LABS: Basophils % 0.5 %; Eosinophils # 0.1 10^3/uL (0.0-0.8); Eosinophils % 1.7 %; Hemoglobin 11.5 g/dL (11.5-15.3); Lymphocytes # 2.3 10^3/uL (0.8-4.8); Lymphocytes % 34.7 %; Mean Corpuscular HGB Conc 31.1 g/dL (30.0-36.0); Mean Corpuscular Hemoglobin 28.4 pg (28.0-34.0); Mean Corpuscular Volume 91.4 fl (81-99); Mean Platelet Volume 10.6 fL (7.4-10.4); Monocytes # 0.6 10^3/uL (0.2-0.9); Monocytes % 8.5 %; Neutrophils # 3.58 10^3/uL (1.8-7.7); Neutrophils % 54.4 %; Nucleated Red Blood Cells % 0 %; Platelet Count 214 10^3/cmm (130-400); Red Blood Count 4.05 10^6/uL (4.1-5.3); Red Cell Distribution Width 12.3 % (12.1-15.1); White Blood Count 6.6 10^3/uL (4.0-10.0)
[2023-02-08 04:34] LABS: Alanine Aminotransferase 21 U/L (0-33); Albumin Level 3.2 g/dL (3.5-5.2); Alkaline Phosphatase 122 U/L (35-105); Anion Gap 10.7 (5-19); Aspartate Amino Transferase 23 U/L (0-32); Blood Urea Nitrogen 6 mg/dL (6-20); Carbon Dioxide 25 mmol/L (22-29); Chloride 106 mmol/L (98-107); Globulin 2.7 g/dL (1.3-4.6); Glomerular Filtration Rate 93.6 mL/min (90-130); Glucose 159 mg/dL (65-115); Osmolality Calculated 287 mOsm/kg (285-295); Phosphorus 3.1 mg/dL (2.5-4.5); Potassium 3.7 mmol/L (3.5-5.1); Sodium 138 mmol/L (136-145); Total Bilirubin 0.2 mg/dL (0.15-1.2); Total Protein 5.9 g/dL (6.6-8.7)
[2023-02-08] MEDS: sodium chloride 0.9% 1,000 ML 150 ML IV (05:01)
--- NOTE | 2023-02-08 09:20 | PM.DCS ---
Discharge Providers Date of Admission: 02/06/23 21:26 Date of Discharge: February 08, 2023 Attending Provider at Admission: Rossy Soriano MD Attending Provider at Discharge: Eric Beach MD Primary Care Provider: Stiven Zuniga MD Diagnoses at Discharge Discharge Diagnosis (1) Syncope: Status: Acute (2) POTS (postural orthostatic tachycardia syndrome): Status: Acute (3) Pre-diabetes: Status: Acute (4) Migraine headache: Status: Acute (5) Asthma: Status: Acute Qualifiers: Asthma severity: moderate Asthma persistence: persistent Asthma complication type: with status asthmaticus Qualified Code(s): J45.42 - Moderate persistent asthma with status asthmaticus (6) Chronic diarrhea: Status: Acute Reason for Visit Reason for Visit: syncope Hospital Course Hospital Course Bhaskar Clayton is a 37 year old female with past medical history of asthma, migraines, depression, irritable bowel syndrome with chronic diarrhea, status post cholecystectomy 2010 presented to the hospital with complaint of syncopal episode that she had a discharge today.? She said that after offering prior she felt very lightheaded and dizzy and had to sit down and the next thing he knows she found herself on the floor.? She states she had passed out for more than a couple seconds.? When she woke up EMS was present.? She was brought to the hospital.? She recently saw her primary care doctor who has her scheduled for an EEG on March 01 and also to set up with a cardiac event monitor on February 14.? She does not have a history of seizures.? Did not hit her head.? Did not have any other symptoms today.? She does feel slightly nauseated however did not experience that this morning when she went down.? She states the syncopal episodes pretty much started 2-1/2 weeks ago.? She believes she drinks enough water to keep yourself hydrated and is not related to dehydration.? She says it did not happen last summer.? Patient is concerned that she may have pots syndrome.? She does get tachycardic upon movement of head left to right.? Also feels lightheaded when she moves her head left or right.? She did come to the ER on 28 January for complaint of headache.? CT head was negative.? She was given Reglan Benadryl DHE.? She again had a headache subsequently after going home and had another syncopal event there.? She also had a similar event at the doctor's office when patient was moved from chair to examination table.? She became more lethargic verbally fatigued looking hard time finding words.? Heart rate was greater than 100 at that point.? She did not lose consciousness.? 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 Wellbutrin dose was reduced at her PCP visit and she is currently on a taper at this time.? I have discussed with the patient regarding a tilt table test in the future. When seen she denies nausea or vomiting chest pain, shortness of breath.? Does appear slightly anxious. Patient was admitted to [facility] for syncope, symptoms were somewhat orthostatic, but could be POTS syndrome, was monitored over the next 24 hours, no significant arrhythmia events, no recurrent syncopal symptoms, discharged home with an event monitor, close follow-up cardiology as outpatient. Work-up as below Cardiac echo Technically very limited quality echocardiogram because of poor ?ultrasonic windows. ?LV systolic function is normal with EF 55 to 60% ?Grade 1 diastolic dysfunction ?Trace tricuspid regurgitation ?Valvular structures are not well visualized. ?No comparison studies are available Carotid ultrasound Right ICA stenosis <50%. Mild atheromatous plaque right carotid ?bulb/ICA. ?Left ICA stenosis <50%. Mild atheromatous plaque left carotid ?bulb/ICA. ?Normal antegrade Doppler flow noted in the right vertebral ?artery. ?Normal antegrade Doppler flow noted in the left vertebral ?artery. CT/CT head wo con* [id number] IMPRESSION: No acute intracranial abnormality. For her migraine headaches, she received Toradol, Reglan, Benadryl here in the hospital, follow-up with neurology Physical Exam Const: COMMON NORMALS: no acute distress and patient oriented x3 Resp: COMMON NORMALS: normal respiratory effort, No retractions, No use of accessory muscles and clear to auscultation bilaterally AUSCULTATION: clear to auscultation bilaterally Cardio: COMMON NORMALS: regular rate, regular rhythm, S1 normal heart sound present and S2 normal heart sound present RATE: regular rate RHYTHM: regular rhythm HEART SOUNDS: S1 normal heart sound present and S2 normal heart sound present GI: COMMON NORMALS: Normal to inspection, nondistended, normoactive bowel sounds present, Soft to palpation, non-tender, No hepatosplenomegaly present, no masses and no bruits PALPATION: Yes Soft to palpation and Yes No hepatosplenomegaly present Extremity: COMMON NORMALS: capillary refill normal, no clubbing, cyanosis or edema, no calf tenderness and no pedal edema Neuro: COMMON NORMALS: patient oriented x3 Psych: COMMON NORMALS: mental status grossly normal Discharge Data Studies Completed and Pending Completed Studies During Hospitalization Category Date Time Status XR chest 1V portable [id number] Stat Exams 02/06/23 20:05 Completed CV carotid duplex BI* [id number] Routine Ultrasound 02/06/23 22:43 Completed CV. echo wo/w contrast [id number] Routine Ultrasound 02/07/23 22:39 Completed Pending at discharge Category Date Time Status Complete Blood Count w/Auto AM LABS Lab 02/09/23 04:00 Ordered Complete Blood Count w/Auto AM LABS Lab 02/10/23 04:00 Ordered Comprehensive Metabolic Panel AM LABS Lab 02/09/23 04:00 Ordered Comprehensive Metabolic Panel AM LABS Lab 02/10/23 04:00 Ordered Magnesium AM LABS Lab 02/09/23 04:00 Ordered Magnesium AM LABS Lab 02/10/23 04:00 Ordered Phosphorus AM LABS Lab 02/09/23 04:00 Ordered Phosphorus AM LABS Lab 02/10/23 04:00 Ordered Radiology Impressions Chest X-Ray 02/06/23 20:05 IMPRESSION: No acute findings. Laboratory Results WBC 6.6 10^3/uL (4.0-10.0) 02/08/23 03:36 RBC 4.05 10^6/uL (4.1-5.3) L 02/08/23 03:36 Hgb 11.5 g/dL (11.5-15.3) 02/08/23 03:36 Hct 37.0 % (37.0-47.0) 02/08/23 03:36 MCV 91.4 fl (81-99) 02/08/23 03:36 MCH 28.4 pg (28.0-34.0) 02/08/23 03:36 MCHC 31.1 g/dL (30.0-36.0) 02/08/23 03:36 RDW 12.3 % (12.1-15.1) 02/08/23 03:36 Plt Count 214 10^3/cmm (130-400) 02/08/23 03:36 MPV 10.6 fL (7.4-10.4) H 02/08/23 03:36 Neut % (Auto) 54.4 % 02/08/23 03:36 Lymph % (Auto) 34.7 % 02/08/23 03:36 [place] % (Auto) 8.5 % 02/08/23 03:36 Eos % (Auto) 1.7 % 02/08/23 03:36 Baso % (Auto) 0.5 % 02/08/23 03:36 Neut # (Auto) 3.58 10^3/uL (1.8-7.7) 02/08/23 03:36 Lymph # (Auto) 2.3 10^3/uL (0.8-4.8) 02/08/23 03:36 [place] # (Auto) 0.6 10^3/uL (0.2-0.9) 02/08/23 03:36 Eos # (Auto) 0.1 10^3/uL (0.0-0.8) 02/08/23 03:36 Baso # (Auto) 0.0 10^3/uL (0.0-0.1) 02/08/23 03:36 Nucleated RBC % (auto) 0 % 02/08/23 03:36 Nucleated RBCs # 0.0 /100WBC 02/08/23 03:36 D-Dimer 0.38 ug/mIFEU (0-0.59) 02/06/23 22:25 Sodium 138 mmol/L (136-145) 02/08/23 03:36 Potassium 3.7 mmol/L (3.5-5.1) 02/08/23 03:36 Chloride 106 mmol/L (98-107) 02/08/23 03:36 Carbon Dioxide 25 mmol/L (22-29) 02/08/23 03:36 Anion Gap 10.7 (5-19) 02/08/23 03:36 BUN 6 mg/dL (6-20) 02/08/23 03:36 Creatinine 0.7 mg/dL (0.5-0.9) 02/08/23 03:36 GFR Calculation 93.6 mL/min (90-130) 02/08/23 03:36 Glucose 159 mg/dL (65-115) H 02/08/23 03:36 POC Glucose 148 mg/dL (70-110) H 02/06/23 20:13 Calculated Osmolality 287 mOsm/kg (285-295) 02/08/23 03:36 Calcium 8.0 mg/dL (8.5-10.5) L 02/08/23 03:36 Phosphorus 3.1 mg/dL (2.5-4.5) 02/08/23 03:36 Magnesium 2.0 mg/dL (1.7-2.3) 02/08/23 03:36 Total Bilirubin 0.2 mg/dL (0.15-1.2) 02/08/23 03:36 AST 23 U/L (0-32) 02/08/23 03:36 ALT 21 U/L (0-33) 02/08/23 03:36 Alkaline Phosphatase 122 U/L (35-105) H 02/08/23 03:36 Troponin T Baseline 6 ng/L (0-10) 02/06/23 20:15 Troponin T 120 Minute 6.00 ng/L (0-10) 02/06/23 22:25 Delta Troponin T 0 ABS# (0-10) 02/06/23 22:25 Troponin T Hi Sens 6Hr 6.00 ng/L (0-10) 02/07/23 01:52 Troponin T Hi Sens 6Hr Delta 0 ng/L (0-12) 02/07/23 01:52 Total Protein 5.9 g/dL (6.6-8.7) L 02/08/23 03:36 Albumin 3.2 g/dL (3.5-5.2) L 02/08/23 03:36 Globulin 2.7 g/dL (1.3-4.6) 02/08/23 03:36 TSH 3.05 uIU/mL (0.27-4.20) 02/06/23 22:25 HCG, Qual Negative (Negative) 02/06/23 20:15 Vitals Last Vital Signs Temp 97.9 F 02/08/23 07:54 Pulse 84 02/08/23 08:24 Resp 16 02/08/23 08:24 BP 113/78 02/08/23 07:54 Pulse Ox 93 02/08/23 08:24 O2 Del Method Room Air 02/08/23 08:24 Discharge Plan Discharge Condition: Stable Prescriptions: Continued albuterol sulfate 90 mcg/actuation HFA aerosol inhaler 2 inh inhalation Q4H PRN (Reason: shortness of breath or wheezing) Qty: 6.7 0RF sumatriptan succinate 100 mg tablet See Rx Instructions PO .COMPLEX Qty: 10 0RF Rx Instructions: take 1 tab at onset of headache; if no relief may repeat 1 tab after at least 2 hrs; max = 2 tabs/24 hr PO levocetirizine [Xyzal] 5 mg tablet 5 mg PO DAILY Qty: 30 1RF bupropion HCl [Wellbutrin SR] 150 mg tablet sustained-release 12 hr 150 mg PO DAILY Qty: 14 0RF Excedrin Migraine 250-250-65 mg tablet 1 tab PO Q6H PRN (Reason: Headache) omeprazole 40 mg capsule,delayed release(DR/EC) See Rx Instructions .ROUTE .COMPLEX Qty: 90 1RF Dose Instruction: take 1 capsule BY MOUTH EVERY DAY Rx Instructions: take 1 capsule BY MOUTH EVERY DAY gabapentin 300 mg capsule See Rx Instructions .ROUTE .COMPLEX Qty: 360 1RF Dose Instruction: take 1 capsule BY MOUTH EVERY MORNING, ONE AT NOON AND TWO AT BEDTIME Rx Instructions: take 1 capsule BY MOUTH EVERY MORNING, ONE AT NOON AND TWO AT BEDTIME montelukast 10 mg tablet See Rx Instructions .ROUTE .COMPLEX Qty: 90 1RF Dose Instruction: TAKE 1 TABLET BY MOUTH EVERY DAY Rx Instructions: TAKE 1 TABLET BY MOUTH EVERY DAY tizanidine 4 mg tablet See Rx Instructions .ROUTE .COMPLEX Qty: 180 1RF Dose Instruction: TAKE 1 TABLET BY MOUTH TWICE DAILY NEEDED FOR MUSCLE SPASTICITY Rx Instructions: TAKE 1 TABLET BY MOUTH TWICE DAILY NEEDED FOR MUSCLE SPASTICITY venlafaxine 150 mg capsule,extended release 24hr 150 mg PO DAILY Qty: 60 0RF Flonase Allergy Relief 50 mcg/actuation spray,suspension 2 spray intranasal DAILY PRN (Reason: Nasal Congestion) Rx Instructions: administer into each nostril Discharge Orders: Discharge Order (Routine); Ordered 02/08/23 Ordered By: Eric Beach Other Ambulatory Orders: MCT/Event Monitor 30 Days (Routine) Timeframe: 1 Day Facility: [facility] - Location: Radiology Ordered By: Eric Beach Referrals: Cirilo Rodriguez M.D [Physician] - 2 weeks Stiven Zuniga MD [Primary Care Provider] - (Message sent to clinic.) Discharge Diet: Cardiac Discharge Activity: Resume usual activity Patient Instructions: Opioid Safety Activity Restrictions/Additional Instructions: - If any recurrence of syncopal symptoms go to emergency room Discharge Attestations Time Spent in Discharge Care*: greater than 30 min Quality Metrics Clinical Quality Measures [ No reported AMI, CVA or VTE this stay] Coding Level of Care Code 75749 Total time (in minutes) for Discharge: 45 Diagnoses Syncope R55 POTS (postural orthostatic tachycardia syndrome) G90.A Pre-diabetes R73.03 Migraine headache G43.909 Asthma J45.42 Asthma severity: moderate Asthma persistence: persistent Asthma complication type: with status asthmaticus Chronic diarrhea K52.9
[2023-02-08] MEDS: diphenhydrAMINE 50 mg/mL SDV 1mL 25 MG IVP (09:49)
[2023-02-08] MEDS: metoclopramide 5 mg/mL SDV 2 mL IVP (09:50)
[2023-02-08] MEDS: pantoprazole DR 40 mg Tablet PO (09:58)
[2023-02-08] MEDS: buPROPion SR (12 HR) 150 mg Tablet PO (09:58)
[2023-02-08] MEDS: venlafaxine ER (24HR) 150 mg Capsule PO (09:58)
[2023-02-08] MEDS: montelukast sodium 10 mg Tablet PO (09:59)
--- NOTE | 2023-02-08 10:45 | PC.CHAP ---
Pastoral Care Encounter/Spiritual Assessment Type of Contact [] Declined waterproofing mixer visit [] Patient/Family/Request visit [] Outpatient visit [x] Follow-up visit [] Physician referral [] Code/Alert [] Routine visit [] Staff referral [] Actively dying [] Patient sleeping [] Family support [] [] Out of room [] Palliative care [] [] Receiving care in room [] Pre-surgical visit [] Trauma [] Long length of stay [] ICU visit [] Other: Relational/Emotional Strength [] Patient feels connected with others/family/visitors/staff [] Distress [] Loneliness/isolation [] Abandonment Spirituality of Patient [] Person of Saida [] Attends Yarsanism of their Saida [] Believes in Prayer [] Reads Bible or Sikhism materials [] There are Spiritual issues to be addressed Family Reunification Specialist Interventions [] Prayer [] Active listening [] Non-anxious presence [] Spiritual/emotional support [] Crisis/trauma care [] Spiritual counseling [] Bereavement support [] Provided bereavement packet [] Provided Bible/devotional materials [] Provided toy/stuffed animal, coloring book to patient or family member [] Provided Communion [] Anointing/[place] [] Salvation [] Completed spiritual assessment [] Other: Impact on Illness or Injury [] Angry [] Fearful [] Anxious [] Often cries [] Exhaustion [] Unable to work [] Unable to attend scientologist [] Unable to walk/stand [] Unable to read [] Unable to drive [] Unable to eat/drink [] Unable to sleep [] Unable to be with family [] Patient intubated [] Other: Summary Follow-up visit asleep Time spent with patient
== END 2023-02-08 13:15 | disposition home or self-care (01) ==
LOC: ER 21:19 → MEDSURG 21:27
PROVIDERS: Admitting Provider Internal Medicine; Emergency Provider Emergency Medicine; PCP Family Medicine; Visit Provider Family Medicine
DX: R55 Syncope and collapse (principal); G90.A Postural orthostatic tachycardia syndrome [POTS]; R73.03 Prediabetes; G43.909 Migraine, unspecified, not intractable, without status migrainosus; J45.42 Moderate persistent asthma with status asthmaticus; K52.9 Noninfective gastroenteritis and colitis, unspecified; I50.30 Unspecified diastolic (congestive) heart failure; E86.0 Dehydration
CPT/HCPCS: 36415; 36416; 71045; 80048; 80053; 82962; 83735; 84100; 84443; 84484; 84703; 85025; 85378; 93005; 93880; 96361; 96372; 96374; 96375; 96376; 97161; 99285; C8929; G0378; J1200; J1650; J2270; J2405; J2765; J7030; Q9956

== ENCOUNTER 2023-02-20 11:16 | Emergency (ER) | payer OTHER, SELFPAY ==
[2023-02-20 11:20] VITALS: BP 123/89; PULSE 86; RESP 14; TEMP 36.7; O2SAT 98; BMI 55.3
--- NOTE | 2023-02-20 11:27 | ECG_ITS ---
[facility] Test Date: 2023-02-20 Pat Name: Bhaskar Clayton Department: Room: Gender: Female Clinical Coordinator: : 1985 Requested By: Sohail Ng Order Number: [id number] Ishan MD: Hannah Peralta M.D. Measurements Intervals [place] Rate: 79 P: 21 CA: 181 QRS: 22 QRSD: 83 T: 24 QT: 372 QTc: 428 Interpretive Statements SINUS RHYTHM Compared to ECG 02/07/2023 05:36:00 Myocardial infarct finding no longer present Electronically Signed On 02-20-2023 16:22:15 CDT by Hannah Peralta M.D. [email or web address]
--- NOTE | 2023-02-20 11:31 | XR_ITS ---
WS: [id number] EXAMINATION: XR chest 1V portable [id number] REASON FOR EXAM: Syncope COMPARISON: 02/16/2023 ORDER DATE: 02/20/2023 11:34 AM TECHNIQUE: A single, portable frontal chest x-ray was obtained. X-RAY FINDINGS: The lungs are clear. Pleural spaces are clear. No pleural effusions or pneumothorax. Cardiomediastinal silhouette is normal. No evidence for pulmonary edema. Soft tissue and osseous structures are unremarkable. No tubes or lines are present. XR/XR chest 1V portable [id number] IMPRESSION: Unremarkable frontal portable chest x-ray. No change from previous.
[2023-02-20 11:53] VITALS: BP 154/111; PULSE 86; O2SAT 94
--- NOTE | 2023-02-20 11:56 | W.ED.SYNCOPE ---
Documented by User: KARLEE Johnson 02/21/23 07:26 HPI - Syncope General: Chief Complaint: Syncope Stated Complaint: syncope Time Seen by Provider: 02/20/23 11:23 History of Present Illness: Patient is a 37-year-old female comes to the ED with syncopal episode. 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 Patient was seen here in the ED for same complaint back on February 06 and was admitted. They think she might have POTS and she currently is wearing a Holter monitor and is scheduled to get an EEG for potential seizures as well on 01 March. Patient states that today she was at work sitting and she started getting really hot. She then got a cold flash and felt very weak. She endorses having some paresthesia to the top of her head and left shoulder her right before syncopal episode. The clinic called EMS and they came to patient. They went to stand patient up and she had a syncopal episode but they were holding onto her so she did not fall or hit her head. They said patient was out for no more than a minute or 2. She was having some eye twitching, left hand shaking and head nodding during syncopal episode. Endorses some shortness of breath before syncopal episode. Patient says she does not remember the syncopal episode. Denies any bladder or bowel incontinence. After syncopal episode she says she feels really fatigued. She does endorse having some constant chest pain that started approximately 3 to 4 days ago. She says it worsens when she gets up and moves around. Chest pain is located in the lower chest bilaterally. Patient says she has been taking all her medications as prescribed and has not missed any doses. She denies any drug use or excessive caffeine intake. Currently she has a pressure type headache in the back of her head. Denies any vision changes, numbness tingling or weakness to 1 side of her face or body. Associated symptoms: Deny abdominal pain, chest pain, fever(s), headache(s) or nausea Review of Systems Const: Denies: fever(s), chills or fatigue Eyes: Denies: change in vision or eye discomfort ENMT: Denies: throat pain, odynophagia, nasal discharge or nasal congestion Card: Reports: syncope; Denies: chest pain, palpitations, edema, swelling of feet/ankles, dyspnea on exertion or orthopnea Resp: Denies: dyspnea, productive cough or non-productive cough GI: Denies: abdominal pain, nausea, vomiting, diarrhea, constipation or hematochezia : Denies: flank pain, dysuria or hematuria Musc: Denies: neck pain, back pain or extremity swelling Skin/Breast: Denies: rash or new lesions Neuro: Denies: headache(s), numbness in extremities or weakness in extremities PFS ED PFSH: Medical History (Updated 02/20/23 @ 15:28 by KARLEE Johnson) Contraception management Patient was counseled regarding all methods of contraception, long acting reversible contraception, indications, contraindications, side effects and complications. She elected for the levonorgestrel-releasing intrauterine system. Return next for insertion of the levonorgestrel-releasing intrauterine system. Time: 30 min. Obesity Surgical History History of cholecystectomy 10/2010 History of laminectomy L4-L5 History of tonsillectomy 09/2001 Hx of discectomy 06/2017 L4-L5 Family History Family/Other Diabetes Maternal aunt Breast cancer maternal aunt Heart disease paternal uncle Grandmother Diabetes maternal Grandfather Diabetes paternal Stroke maternal Sister Diabetes Father Diabetes Hypertension Cancer kidney Mother Diabetes Other Hyperlipidemia Lung disease Psychiatric illness Denies family history of CAD (coronary artery disease) Clotting disorder Dementia Chronic kidney disease (CKD) Anesthesia complication Bleeding disorder Social History Smoking and tobacco status: never smoked Second hand smoke exposure: No Alcohol intake: current Alcohol intake frequency: holidays/special occasions only Substance/Drug Use: never Lives independently: Yes Household members: children Marital status: Number of children: 2 Current occupational status: employed Current occupation: [employer] [place] at [employer] Pets and animals: Yes Pets & animals: cat(s) Do you think of yourself as: Straight/Heterosexual Current gender identity: Female Special dotty needs: No Agree to transfusion: Yes Additional social history: well balanced diet Physical Exam Const: COMMON NORMALS: no acute distress, patient oriented x3 and alert GENERAL APPEARANCE: cooperative and comfortable HENMT: COMMON NORMALS: normocephalic HEAD & SCALP: normocephalic MOUTH: Normal oral and palatal mucosa present THROAT: posterior oropharynx normal and uvula midline Eye: COMMON NORMALS: Equal, round and reactive pupils present and EOMs intact bilaterally GENERAL EYE: appearance normal, both eyes and all related structures PUPIL: Yes Equal, round and reactive pupils present Neck/C-Spine: COMMON NORMALS: supple GENERAL: Yes normal visual inspection Lymph: LYMPHATIC: no lymphadenopathy noted Resp: COMMON NORMALS: normal respiratory effort, No retractions, No use of accessory muscles and clear to auscultation bilaterally AUSCULTATION: clear to auscultation bilaterally Cardio: COMMON NORMALS: regular rate, regular rhythm, S1 normal heart sound present, S2 normal heart sound present, No gallops present (Cardio), No clicks present (Cardio), No murmurs present (Cardio) and Peripheral pulses 2+ throughout RATE: regular rate RHYTHM: regular rhythm HEART SOUNDS: S1 normal heart sound present and S2 normal heart sound present PERIPHERAL PULSES: Peripheral pulses 2+ throughout GI: COMMON NORMALS: Normal to inspection, nondistended, normoactive bowel sounds present, Soft to palpation, non-tender and no masses PALPATION: Yes Soft to palpation : COMMON NORMALS: Yes no CVA tenderness BLADDER/KIDNEY EXAM: Yes no CVA tenderness Back/Pelvis: COMMON NORMALS: no CVA tenderness Extremity: GENERAL: Yes normal exam except as noted Neuro: COMMON NORMALS: patient oriented x3, CN's II-XII intact bilaterally, moves all extremities, no focal motor deficits and no sensory deficits noted SENSORIUM/ORIENTATION: Yes alert SENSORY EXAM: Yes extremities (intact) MOTOR EXAM: 5/5 motor strength present throughout Skin: COMMON NORMALS: no rashes or lesions noted GENERAL SKIN EXAM: no rashes or lesions noted and dry skin Course Vital Signs: Vital signs: Vital Signs Temperature 98.1 F 02/20/23 11:20 Pulse Rate 75 02/20/23 13:53 Respiratory Rate 14 02/20/23 11:20 Blood Pressure 167/59 02/20/23 13:53 Pulse Oximetry 97 02/20/23 13:53 Oxygen Delivery Me thod Room Air 02/20/23 13:53 MDM - Syncope Medical Decision Making Patient is a 37-year-old female comes to the ED with syncopal episode. 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 Patient was seen here in the ED for same complaint back on February 06 and was admitted. They think she might have POTS and she currently is wearing a Holter monitor and is scheduled to get an EEG for potential seizures as well on 01 March. Patient states that today she was at work sitting and she started getting really hot. She then got a cold flash and felt very weak. She endorses having some paresthesia to the top of her head and left shoulder her right before syncopal episode. The clinic called EMS and they came to patient. They went to stand patient up and she had a syncopal episode but they were holding onto her so she did not fall or hit her head. They said patient was out for no more than a minute or 2. She was having some eye twitching, left hand shaking and head nodding during syncopal episode. Endorses some shortness of breath before syncopal episode. Patient says she does not remember the syncopal episode. Denies any bladder or bowel incontinence. After syncopal episode she says she feels really fatigued. She does endorse having some constant chest pain that started approximately 3 to 4 days ago. She says it worsens when she gets up and moves around. Chest pain is located in the lower chest bilaterally. Patient says she has been taking all her medications as prescribed and has not missed any doses. She denies any drug use or excessive caffeine intake. Currently she has a pressure type headache in the back of her head. Denies any vision changes, numbness tingling or weakness to 1 side of her face or body. Vital stable. Exam is benign and neuro exam shows no deficits. CBC and CMP are unremarkable. Chest x-ray shows no acute findings head CT shows no acute findings. Troponins negative. EKG showed no acute findings. Patient was diagnosed with syncope and was stable for discharge home. She was told to go to her follow-up appointment for review of her Holter monitor report and her scheduled EEG to evaluate for seizures at the end of the month. Return to ED precautions given. Patient understood and agreed with plan. Lab Data I reviewed the patient's lab results. 02/20/23 12:10 02/20/23 12:10 Radiology Impressions Chest X-Ray 02/20/23 11:31 IMPRESSION: Unremarkable frontal portable chest x-ray. No change from previous. Head CT 02/20/23 12:03 IMPRESSION: 1. No evidence of intracranial hemorrhage or mass effect 2. No acute intracranial findings. Laboratory Results WBC 5.7 10^3/uL (4.0-10.0) 02/20/23 12:10 RBC 4.63 10^6/uL (4.1-5.3) 02/20/23 12:10 Hgb 13.3 g/dL (11.5-15.3) 02/20/23 12:10 Hct 41.2 % (37.0-47.0) 02/20/23 12:10 MCV 89.0 fl (81-99) 02/20/23 12:10 MCH 28.7 pg (28.0-34.0) 02/20/23 12:10 MCHC 32.3 g/dL (30.0-36.0) 02/20/23 12:10 RDW 12.1 % (12.1-15.1) 02/20/23 12:10 Plt Count 245 10^3/cmm (130-400) 02/20/23 12:10 MPV 10.4 fL (7.4-10.4) 02/20/23 12:10 Neut % (Auto) 54.3 % 02/20/23 12:10 Lymph % (Auto) 33.2 % 02/20/23 12:10 [place] % (Auto) 9.7 % 02/20/23 12:10 Eos % (Auto) 2.1 % 02/20/23 12:10 Baso % (Auto) 0.5 % 02/20/23 12:10 Neut # (Auto) 3.09 10^3/uL (1.8-7.7) 02/20/23 12:10 Lymph # (Auto) 1.9 10^3/uL (0.8-4.8) 02/20/23 12:10 [place] # (Auto) 0.6 10^3/uL (0.2-0.9) 02/20/23 12:10 Eos # (Auto) 0.1 10^3/uL (0.0-0.8) 02/20/23 12:10 Baso # (Auto) 0.0 10^3/uL (0.0-0.1) 02/20/23 12:10 Nucleated RBC % (auto) 0 % 02/20/23 12:10 Nucleated RBCs # 0.0 /100WBC 02/20/23 12:10 Sodium 137 mmol/L (136-145) 02/20/23 12:10 Potassium 4.0 mmol/L (3.5-5.1) 02/20/23 12:10 Chloride 101 mmol/L (98-107) 02/20/23 12:10 Carbon Dioxide 24 mmol/L (22-29) 02/20/23 12:10 Anion Gap 16.0 (5-19) 02/20/23 12:10 BUN 7 mg/dL (6-20) 02/20/23 12:10 Creatinine 0.6 mg/dL (0.5-0.9) 02/20/23 12:10 GFR Calculation 111.9 mL/min (90-130) 02/20/23 12:10 Glucose 151 mg/dL (65-115) H 02/20/23 12:10 Calculated Osmolality 285 mOsm/kg (285-295) 02/20/23 12:10 Calcium 9.0 mg/dL (8.5-10.5) 02/20/23 12:10 Total Bilirubin 0.3 mg/dL (0.15-1.2) 02/20/23 12:10 AST 26 U/L (0-32) 02/20/23 12:10 ALT 28 U/L (0-33) 02/20/23 12:10 Alkaline Phosphatase 147 U/L (35-105) H 02/20/23 12:10 Troponin T Baseline 6 ng/L (0-10) 02/20/23 12:10 Troponin T 120 Minute 6.00 ng/L (0-10) 02/20/23 14:41 Delta Troponin T 0 ABS# (0-10) 02/20/23 14:41 Total Protein 7.1 g/dL (6.6-8.7) 02/20/23 12:10 Albumin 3.7 g/dL (3.5-5.2) 02/20/23 12:10 Globulin 3.4 g/dL (1.3-4.6) 02/20/23 12:10 HCG, Qual Negative (Negative) 02/20/23 12:10 EKG Data EKG 1: EKG interpretation date: 02/20/23 Interpretation: Sinus rhythm, 79 bpm, no ST segment elevation or depression seen. Discharge Plan Discharge Patient Disposition: Home Clinical Impression: Episode of syncope Qualifiers: Syncope type: unspecified Qualified Code(s): R55 - Syncope and collapse Condition: Stable Prescriptions: No Action albuterol sulfate 90 mcg/actuation HFA aerosol inhaler 2 inh inhalation Q4H PRN (Reason: shortness of breath or wheezing) Qty: 6.7 0RF sumatriptan succinate 100 mg tablet See Rx Instructions PO .COMPLEX Qty: 10 0RF Rx Instructions: take 1 tab at onset of headache; if no relief may repeat 1 tab after at least 2 hrs; max = 2 tabs/24 hr PO levocetirizine [Xyzal] 5 mg tablet 5 mg PO DAILY Qty: 30 1RF bupropion HCl [Wellbutrin SR] 150 mg tablet sustained-release 12 hr 150 mg PO DAILY Qty: 14 0RF Excedrin Migraine 250-250-65 mg tablet 1 tab PO Q6H PRN (Reason: Headache) omeprazole 40 mg capsule,delayed release(DR/EC) See Rx Instructions .ROUTE .COMPLEX Qty: 90 1RF Dose Instruction: take 1 capsule BY MOUTH EVERY DAY Rx Instructions: take 1 capsule BY MOUTH EVERY DAY gabapentin 300 mg capsule See Rx Instructions .ROUTE .COMPLEX Qty: 360 1RF Dose Instruction: take 1 capsule BY MOUTH EVERY MORNING, ONE AT NOON AND TWO AT BEDTIME Rx Instructions: take 1 capsule BY MOUTH EVERY MORNING, ONE AT NOON AND TWO AT BEDTIME montelukast 10 mg tablet See Rx Instructions .ROUTE .COMPLEX Qty: 90 1RF Dose Instruction: TAKE 1 TABLET BY MOUTH EVERY DAY Rx Instructions: TAKE 1 TABLET BY MOUTH EVERY DAY tizanidine 4 mg tablet See Rx Instructions .ROUTE .COMPLEX Qty: 180 1RF Dose Instruction: TAKE 1 TABLET BY MOUTH TWICE DAILY NEEDED FOR MUSCLE SPASTICITY Rx Instructions: TAKE 1 TABLET BY MOUTH TWICE DAILY NEEDED FOR MUSCLE SPASTICITY venlafaxine 150 mg capsule,extended release 24hr 150 mg PO DAILY Qty: 60 0RF Flonase Allergy Relief 50 mcg/actuation spray,suspension 2 spray intranasal DAILY PRN (Reason: Nasal Congestion) Rx Instructions: administer into each nostril Discharge Orders: Discharge ED (Routine); Ordered 02/20/23 Ordered By: Star Hernandez Referrals: Stiven Zuniga MD [Primary Care Provider] - Discharge Diet: Regular Discharge Activity: Increase activity as tolerated Patient Instructions: Syncope (ED) Activity Restrictions/Additional Instructions: Follow-up with medical provider as directed in the next 3 to 5 days for reevaluation. Continue taking all home medications as previously prescribed. Return to the ER or your medical provider if condition worsens. Please read and understand discharge instructions. Thank you for choosing [facility] for your healthcare needs today. Please realize this is an emergency room and that we are providing you with a medical screening exam and this may not be complete and all inclusive of all the testing and or work up that you may need to determine your ailment or severity of your illness. It is very important that you follow up as instructed or that you return to the Emergency Department should you have concerns or if your condition changes or worsens in any way. Stand Alone Forms: Work/School Release Coding Level of Care Code ED House Wirer for Chg Fwd Documented by User: Sohail Ramos DO 02/22/23 05:48 HPI - Syncope General: Chief Complaint: Syncope Stated Complaint: syncope Time Seen by Provider: 02/20/23 11:23 [facility] ED PFSH: Medical History (Updated 02/20/23 @ 15:28 by KARLEE Johnson) Contraception management Patient was counseled regarding all methods of contraception, long acting reversible contraception, indications, contraindications, side effects and complications. She elected for the levonorgestrel-releasing intrauterine system. Return next for insertion of the levonorgestrel-releasing intrauterine system. Time: 30 min. Obesity Surgical History History of cholecystectomy 10/2010 History of laminectomy L4-L5 History of tonsillectomy 09/2001 Hx of discectomy 06/2017 L4-L5 Family History Family/Other Diabetes Maternal aunt Breast cancer maternal aunt Heart disease paternal uncle Grandmother Diabetes maternal Grandfather Diabetes paternal Stroke maternal Sister Diabetes Father Diabetes Hypertension Cancer kidney Mother Diabetes Other Hyperlipidemia Lung disease Psychiatric illness Denies family history of CAD (coronary artery disease) Clotting disorder Dementia Chronic kidney disease (CKD) Anesthesia complication Bleeding disorder Social History Smoking and tobacco status: never smoked Second hand smoke exposure: No Alcohol intake: current Alcohol intake frequency: holidays/special occasions only Substance/Drug Use: never Lives independently: Yes Household members: children Marital status: Number of children: 2 Current occupational status: employed Current occupation: [employer] [place] at [employer] Pets and animals: Yes Pets & animals: cat(s) Do you think of yourself as: Straight/Heterosexual Current gender identity: Female Special dotty needs: No Agree to transfusion: Yes Additional social history: well balanced diet Course Vital Signs: Vital signs: Vital Signs Temperature 98.1 F 02/20/23 11:20 Pulse Rate 75 02/20/23 13:53 Respiratory Rate 14 02/20/23 11:20 Blood Pressure 167/59 02/20/23 13:53 Pulse Oximetry 97 02/20/23 13:53 Oxygen Delivery Me thod Room Air 02/20/23 13:53 MDM - Syncope Medical Decision Making Patient is a 37-year-old female comes to the ED with syncopal episode. 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 Patient was seen here in the ED for same complaint back on February 06 and was admitted. They think she might have POTS and she currently is wearing a Holter monitor and is scheduled to get an EEG for potential seizures as well on 01 March. Patient states that today she was at work sitting and she started getting really hot. She then got a cold flash and felt very weak. She endorses having some paresthesia to the top of her head and left shoulder her right before syncopal episode. The clinic called EMS and they came to patient. They went to stand patient up and she had a syncopal episode but they were holding onto her so she did not fall or hit her head. They said patient was out for no more than a minute or 2. She was having some eye twitching, left hand shaking and head nodding during syncopal episode. Endorses some shortness of breath before syncopal episode. Patient says she does not remember the syncopal episode. Denies any bladder or bowel incontinence. After syncopal episode she says she feels really fatigued. She does endorse having some constant chest pain that started approximately 3 to 4 days ago. She says it worsens when she gets up and moves around. Chest pain is located in the lower chest bilaterally. Patient says she has been taking all her medications as prescribed and has not missed any doses. She denies any drug use or excessive caffeine intake. Currently she has a pressure type headache in the back of her head. Denies any vision changes, numbness tingling or weakness to 1 side of her face or body. Vital stable. Exam is benign and neuro exam shows no deficits. CBC and CMP are unremarkable. Chest x-ray shows no acute findings head CT shows no acute findings. Troponins negative. EKG showed no acute findings. Patient was diagnosed with syncope and was stable for discharge home. She was told to go to her follow-up appointment for review of her Holter monitor report and her scheduled EEG to evaluate for seizures at the end of the month. Return to ED precautions given. Patient understood and agreed with plan. Chart reviewed and patient discussed with midlevel. Agree with assessment and plan. Lab Data 02/20/23 12:10 02/20/23 12:10 Radiology Impressions Chest X-Ray 02/20/23 11:31 IMPRESSION: Unremarkable frontal portable chest x-ray. No change from previous. Head CT 02/20/23 12:03 IMPRESSION: 1. No evidence of intracranial hemorrhage or mass effect 2. No acute intracranial findings. Laboratory Results WBC 5.7 10^3/uL (4.0-10.0) 02/20/23 12:10 RBC 4.63 10^6/uL (4.1-5.3) 02/20/23 12:10 Hgb 13.3 g/dL (11.5-15.3) 02/20/23 12:10 Hct 41.2 % (37.0-47.0) 02/20/23 12:10 MCV 89.0 fl (81-99) 02/20/23 12:10 MCH 28.7 pg (28.0-34.0) 02/20/23 12:10 MCHC 32.3 g/dL (30.0-36.0) 02/20/23 12:10 RDW 12.1 % (12.1-15.1) 02/20/23 12:10 Plt Count 245 10^3/cmm (130-400) 02/20/23 12:10 MPV 10.4 fL (7.4-10.4) 02/20/23 12:10 Neut % (Auto) 54.3 % 02/20/23 12:10 Lymph % (Auto) 33.2 % 02/20/23 12:10 [place] % (Auto) 9.7 % 02/20/23 12:10 Eos % (Auto) 2.1 % 02/20/23 12:10 Baso % (Auto) 0.5 % 02/20/23 12:10 Neut # (Auto) 3.09 10^3/uL (1.8-7.7) 02/20/23 12:10 Lymph # (Auto) 1.9 10^3/uL (0.8-4.8) 02/20/23 12:10 [place] # (Auto) 0.6 10^3/uL (0.2-0.9) 02/20/23 12:10 Eos # (Auto) 0.1 10^3/uL (0.0-0.8) 02/20/23 12:10 Baso # (Auto) 0.0 10^3/uL (0.0-0.1) 02/20/23 12:10 Nucleated RBC % (auto) 0 % 02/20/23 12:10 Nucleated RBCs # 0.0 /100WBC 02/20/23 12:10 Sodium 137 mmol/L (136-145) 02/20/23 12:10 Potassium 4.0 mmol/L (3.5-5.1) 02/20/23 12:10 Chloride 101 mmol/L (98-107) 02/20/23 12:10 Carbon Dioxide 24 mmol/L (22-29) 02/20/23 12:10 Anion Gap 16.0 (5-19) 02/20/23 12:10 BUN 7 mg/dL (6-20) 02/20/23 12:10 Creatinine 0.6 mg/dL (0.5-0.9) 02/20/23 12:10 GFR Calculation 111.9 mL/min (90-130) 02/20/23 12:10 Glucose 151 mg/dL (65-115) H 02/20/23 12:10 Calculated Osmolality 285 mOsm/kg (285-295) 02/20/23 12:10 Calcium 9.0 mg/dL (8.5-10.5) 02/20/23 12:10 Total Bilirubin 0.3 mg/dL (0.15-1.2) 02/20/23 12:10 AST 26 U/L (0-32) 02/20/23 12:10 ALT 28 U/L (0-33) 02/20/23 12:10 Alkaline Phosphatase 147 U/L (35-105) H 02/20/23 12:10 Troponin T Baseline 6 ng/L (0-10) 02/20/23 12:10 Troponin T 120 Minute 6.00 ng/L (0-10) 02/20/23 14:41 Delta Troponin T 0 ABS# (0-10) 02/20/23 14:41 Total Protein 7.1 g/dL (6.6-8.7) 02/20/23 12:10 Albumin 3.7 g/dL (3.5-5.2) 02/20/23 12:10 Globulin 3.4 g/dL (1.3-4.6) 02/20/23 12:10 HCG, Qual Negative (Negative) 02/20/23 12:10 Discharge Plan Discharge Patient Disposition: Home Clinical Impression: Episode of syncope Qualifiers: Syncope type: unspecified Qualified Code(s): R55 - Syncope and collapse Condition: Stable Prescriptions: No Action albuterol sulfate 90 mcg/actuation HFA aerosol inhaler 2 inh inhalation Q4H PRN (Reason: shortness of breath or wheezing) Qty: 6.7 0RF sumatriptan succinate 100 mg tablet See Rx Instructions PO .COMPLEX Qty: 10 0RF Rx Instructions: take 1 tab at onset of headache; if no relief may repeat 1 tab after at least 2 hrs; max = 2 tabs/24 hr PO levocetirizine [Xyzal] 5 mg tablet 5 mg PO DAILY Qty: 30 1RF bupropion HCl [Wellbutrin SR] 150 mg tablet sustained-release 12 hr 150 mg PO DAILY Qty: 14 0RF Excedrin Migraine 250-250-65 mg tablet 1 tab PO Q6H PRN (Reason: Headache) omeprazole 40 mg capsule,delayed release(DR/EC) See Rx Instructions .ROUTE .COMPLEX Qty: 90 1RF Dose Instruction: take 1 capsule BY MOUTH EVERY DAY Rx Instructions: take 1 capsule BY MOUTH EVERY DAY gabapentin 300 mg capsule See Rx Instructions .ROUTE .COMPLEX Qty: 360 1RF Dose Instruction: take 1 capsule BY MOUTH EVERY MORNING, ONE AT NOON AND TWO AT BEDTIME Rx Instructions: take 1 capsule BY MOUTH EVERY MORNING, ONE AT NOON AND TWO AT BEDTIME montelukast 10 mg tablet See Rx Instructions .ROUTE .COMPLEX Qty: 90 1RF Dose Instruction: TAKE 1 TABLET BY MOUTH EVERY DAY Rx Instructions: TAKE 1 TABLET BY MOUTH EVERY DAY tizanidine 4 mg tablet See Rx Instructions .ROUTE .COMPLEX Qty: 180 1RF Dose Instruction: TAKE 1 TABLET BY MOUTH TWICE DAILY NEEDED FOR MUSCLE SPASTICITY Rx Instructions: TAKE 1 TABLET BY MOUTH TWICE DAILY NEEDED FOR MUSCLE SPASTICITY venlafaxine 150 mg capsule,extended release 24hr 150 mg PO DAILY Qty: 60 0RF Flonase Allergy Relief 50 mcg/actuation spray,suspension 2 spray intranasal DAILY PRN (Reason: Nasal Congestion) Rx Instructions: administer into each nostril Discharge Orders: Discharge ED (Routine); Ordered 02/20/23 Ordered By: Star Hernandez Referrals: Stiven Zuniga MD [Primary Care Provider] - Discharge Diet: Regular Discharge Activity: Increase activity as tolerated Patient Instructions: Syncope (ED) Activity Restrictions/Additional Instructions: Follow-up with medical provider as directed in the next 3 to 5 days for reevaluation. Continue taking all home medications as previously prescribed. Return to the ER or your medical provider if condition worsens. Please read and understand discharge instructions. Thank you for choosing [facility] for your healthcare needs today. Please realize this is an emergency room and that we are providing you with a medical screening exam and this may not be complete and all inclusive of all the testing and or work up that you may need to determine your ailment or severity of your illness. It is very important that you follow up as instructed or that you return to the Emergency Department should you have concerns or if your condition changes or worsens in any way. Stand Alone Forms: Work/School Release Coding Level of Care Code ED House Wirer for Renita De La Paz
--- NOTE | 2023-02-20 12:03 | CT_ITS ---
WS: [id number] CT HEAD TECHNIQUE: Noncontrast CT of the head obtained from the skullbase to the vertex. CLINICAL INFORMATION: Syncopal episode with headache COMPARISON: None. DLP: 1039.[address] scans at [facility] use at least one of these dose optimization techniques: automated e xposure control; mA and/or kV adjustment per patient size (includes targeted exams where dose is matc hed to clinical indication); or iterative reconstruction. FINDINGS: No evidence of intracranial hemorrhage or mass effect. Ventricular system and basal cisterns are zaldivar nt. No extra-axial fluid collections. No evidence of mass or mass effect. Normal arnold-white different iation. Paranasal sinuses and mastoid air cells are well aerated. .Normal visualized soft tissues. CT/CT head wo con* 87699 IMPRESSION: 1. No evidence of intracranial hemorrhage or mass effect 2. No acute intracranial findings.
[2023-02-20 12:33] LABS: Basophils % 0.5 %; Eosinophils # 0.1 10^3/uL (0.0-0.8); Eosinophils % 2.1 %; Hematocrit 41.2 % (37.0-47.0); Hemoglobin 13.3 g/dL (11.5-15.3); Lymphocytes # 1.9 10^3/uL (0.8-4.8); Lymphocytes % 33.2 %; Mean Corpuscular HGB Conc 32.3 g/dL (30.0-36.0); Mean Corpuscular Hemoglobin 28.7 pg (28.0-34.0); Mean Platelet Volume 10.4 fL (7.4-10.4); Monocytes # 0.6 10^3/uL (0.2-0.9); Monocytes % 9.7 %; Neutrophils # 3.09 10^3/uL (1.8-7.7); Neutrophils % 54.3 %; Nucleated Red Blood Cells % 0 %; Platelet Count 245 10^3/cmm (130-400); Red Blood Count 4.63 10^6/uL (4.1-5.3); Red Cell Distribution Width 12.1 % (12.1-15.1); White Blood Count 5.7 10^3/uL (4.0-10.0)
[2023-02-20 12:47] LABS: HCG, Serum Qual Negative (Negative)
[2023-02-20 12:51] LABS: Troponin(5th) Baseline 6 ng/L (0-10)
[2023-02-20 12:53] VITALS: PULSE 84; O2SAT 97
[2023-02-20 12:54] LABS: Alanine Aminotransferase 28 U/L (0-33); Albumin Level 3.7 g/dL (3.5-5.2); Alkaline Phosphatase 147 U/L (35-105); Aspartate Amino Transferase 26 U/L (0-32); Blood Urea Nitrogen 7 mg/dL (6-20); Carbon Dioxide 24 mmol/L (22-29); Chloride 101 mmol/L (98-107); Globulin 3.4 g/dL (1.3-4.6); Glomerular Filtration Rate 111.9 mL/min (90-130); Glucose 151 mg/dL (65-115); Osmolality Calculated 285 mOsm/kg (285-295); Sodium 137 mmol/L (136-145); Total Bilirubin 0.3 mg/dL (0.15-1.2); Total Protein 7.1 g/dL (6.6-8.7)
[2023-02-20 13:53] VITALS: BP 167/59; PULSE 75; O2SAT 97
--- NOTE | 2023-02-20 13:57 | ECG_ITS ---
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 Measurements Intervals [place] Rate: 74 P: 41 [place]: 168 QRS: 64 QRSD: 85 T: 53 QT: 396 QTc: 440 Interpretive Statements SINUS RHYTHM Compared to ECG 02/20/2023 11:27:52 No significant changes Electronically Signed On 02-20-2023 16:28:39 CDT by Hannah Peralta M.D. [id number]
[2023-02-20] MEDS: ketorolac 30 mg/mL INJ IVP (14:37)
[2023-02-20 15:47] LABS: Troponin 5 2HR Delta 0 ABS# (0-10)
== END 2023-02-20 15:54 | disposition home or self-care (01) ==
PROVIDERS: Emergency Provider Physician Assistant; PCP Family Medicine
DX: R55 Syncope and collapse (principal)
CPT/HCPCS: 36415; 70450; 71045; 80053; 84484; 84703; 85025; 93005; 96374; 99285; J1885

== ENCOUNTER 2023-03-08 17:29 | Emergency (ER) | payer OTHER, SELFPAY ==
[2023-03-08 17:40] VITALS: BP 124/79; PULSE 112; RESP 16; TEMP 36.7; O2SAT 96; BMI 54.6
--- NOTE | 2023-03-08 17:47 | ECG_ITS ---
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 Measurements Intervals [place] Rate: 110 P: 39 [place]: 167 QRS: 36 QRSD: 87 T: 33 QT: 336 QTc: 455 Interpretive Statements SINUS TACHYCARDIA Compared to ECG 02/20/2023 13:57:05 Sinus rhythm no longer present Electronically Signed On 03-08-2023 18:21:53 CDT by Cirilo Rodriguez M.D. [id number]
[2023-03-08 18:21] LABS: Basophils % 0.6 %; Eosinophils # 0.2 10^3/uL (0.0-0.8); Eosinophils % 2.6 %; Hematocrit 37.9 % (37.0-47.0); Hemoglobin 11.9 g/dL (11.5-15.3); Lymphocytes % 28.8 %; Mean Corpuscular HGB Conc 31.4 g/dL (30.0-36.0); Mean Corpuscular Hemoglobin 28.1 pg (28.0-34.0); Mean Corpuscular Volume 89.6 fl (81-99); Mean Platelet Volume 10.6 fL (7.4-10.4); Monocytes # 0.5 10^3/uL (0.2-0.9); Monocytes % 7.5 %; Neutrophils # 4.12 10^3/uL (1.8-7.7); Neutrophils % 60.2 %; Nucleated Red Blood Cells % 0 %; Platelet Count 253 10^3/cmm (130-400); Red Blood Count 4.23 10^6/uL (4.1-5.3); Red Cell Distribution Width 12.3 % (12.1-15.1); White Blood Count 6.8 10^3/uL (4.0-10.0)
[2023-03-08 18:48] LABS: Alanine Aminotransferase 26 U/L (0-33); Albumin Level 3.9 g/dL (3.5-5.2); Alkaline Phosphatase 154 U/L (35-105); Anion Gap 14.7 (5-19); Aspartate Amino Transferase 20 U/L (0-32); Blood Urea Nitrogen 13 mg/dL (6-20); Calcium 8.8 mg/dL (8.5-10.5); Carbon Dioxide 25 mmol/L (22-29); Chloride 101 mmol/L (98-107); Glomerular Filtration Rate 93.6 mL/min (90-130); Glucose 212 mg/dL (65-115); Lipase 19 U/L (13-60); Osmolality Calculated 290 mOsm/kg (285-295); Potassium 3.7 mmol/L (3.5-5.1); Sodium 137 mmol/L (136-145); Total Bilirubin 0.2 mg/dL (0.15-1.2); Total Protein 6.9 g/dL (6.6-8.7)
[2023-03-08 19:01] LABS: Troponin(5th) Baseline 6 ng/L (0-10)
--- NOTE | 2023-03-08 19:31 | ECG_ITS ---
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 Measurements Intervals [place] Rate: 102 P: 36 [place]: 164 QRS: 28 QRSD: 86 T: 33 QT: 345 QTc: 451 Interpretive Statements SINUS TACHYCARDIA ABNORMAL RHYTHM ECG Compared to ECG 03/08/2023 17:47:54 No significant changes Electronically Signed On 03-09-2023 8:00:05 CDT by Cirilo Rodriguez M.D. [email or web address]/[email or web address] [id number]
[2023-03-08 20:54] LABS: Troponin 5 2HR Delta 0 ABS# (0-10)
== END 2023-03-08 21:15 | disposition left against medical advice (07) ==
PROVIDERS: Emergency Medicine; Emergency Provider Family Medicine; PCP Family Medicine
DX: Z53.21 Procedure and treatment not carried out due to patient leaving prior to being seen by health care provider (principal)
CPT/HCPCS: 36415; 80053; 83690; 84484; 85025; 93005; 99285

== ENCOUNTER → 2023-03-21 16:36 | Outpatient (BNVA) | payer OTHER, SELFPAY | PROVIDERS: PCP Family Medicine; Visit Provider Family Medicine | DX: F32.1 Major depressive disorder, single episode, moderate (principal); M79.7 Fibromyalgia; R06.02 Shortness of breath; R06.09 Other forms of dyspnea | CPT/HCPCS: 71046 ==

== ENCOUNTER 2023-04-03 12:54 | Outpatient (CLI) | payer OTHER, SELFPAY ==
--- NOTE | 2023-04-03 | ECG_ITS ---
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 Interpretive Statements NAME OF STUDY: TREADMILL STRESS ECHOCARDIOGRAM INDICATION: Syncope,SOB,chest pain PROCEDURE: At the baseline, the patient's blood pressure was 105/59 mmHg, oxygen saturation 98% with a heart rate of 91 bpm. The baseline electrocardiogram showed sinus tachycardia, rightward axis with normal ST-Ts. The patient exercised for 3 minutes on a standard Tello protocol. Patient attained a maximum heart rate of 179 beats per minute(99 % of the maximum predicted heart rate) with a blood pressure at the peak exercise of 166/88 mm Hg oxygen saturation of 95%. The EKG at the peak exercise revealed no significant ST-T wave changes. Patient did not have any chest pain or any significant EKG changes with the exercise During the recovery phase, there were no new changes. Blood pressure at the end of the recovery phase was 137/82 mm Hg with a heart rate of 105 beats per minute and saturation of 95%. Echocardiographic pictures were taken at the baseline, immediately following the peak exercise and during the recovery phase. CONCLUSION: 1. Normal EKG response to treadmill exercise. 2. No exercise-induced chest pain or cardiac arrhythmia. 3. Decreased exercise tolerance, attained a maximum of 4.6 METs 4. Please see separate report for the echocardiographic response to exercise. Electronically Signed On 04-05-2023 11:42:24 CDT by Hannah Peralta M.D. [id number]
[2023-04-03 12:56] VITALS: BMI 55.3
--- NOTE | 2023-04-03 12:56 | USCV_ITS ---
Stress Echo Bhaskar Clayton Age: 37 Gender: F : 1985 Exam Date: 04/03/2023 13:22 Ordering Phys: Hannah Peralta MD ([email or web address]) Technologist: Angeline Betancourt Exam Location: [facility] [place] Indication: CHEST PAIN Rhythm: Sinus Patient History: Cardiac Medications: Medications in past 24 hours: Contrast: Optison Stress Results Protocol: Tello Total dose(mL): 3ml Exercise Duration (min:sec): 3:00 METS: 4.6 Resting HR: 91 Resting BP: 105 / 59 Peak HR: 181 Peak BP: 184 / 88 Max Predicted HR: 182 99 % Max Predicted HR Target HR: 155 Double Product: 52492 Stress Summary: The patient's target heart rate was achieved BP Response: Normal Reason for Termination: Excessive shortness of breath, Maximal effort/unable to continue Cardiac Symptoms: Dyspnea ECG Analysis Resting ECG: Stress ECG: Arrhythmia: MEASUREMENTS (Male/Female) Normal Values 2D ECHO LV Ejection Fraction MOD 2C 62.6 % LV Ejection Fraction 2C AL 62.4 % FINDINGS PROCEDURE: At the baseline, the patient's blood pressure was 105/59 mmHg with a heart rate of 91 bpm. The patient exercised for 3 minutes on a standard Tello protocol. Patient attained a maximum heart rate of 181 beats per minute( 99 % of the maximum predicted heart rate) with a blood pressure at the peak exercise of 184/88 mm Hg. During the recovery phase, there were no new changes. Echocardiographic pictures were taken at the baseline, immediately following the peak exercise and during the recovery phase. Baseline echocardiogram: Normal left ventricular size and systolic function with ejection fraction estimated at 60 %. No regional wall motion abnormalities. Normal right ventricle size and systolic function. Normal left and right atrial size. No pericardial effusion. No intracardiac masses. Peak exercise echocardiogram: Normal augmentation of left ventricular systolic function with exercise. No new regional wall motion abnormalities. Recovery echocardiogram: Left ventricular systolic function normalizes. No regional wall motion abnormalities. CONCLUSIONS 1. This is a treadmill stress echocardiogram. 2. Decreased exercise tolerance, attained a maximum of 4.[place] [address]. 3. Normal blood pressure and heart rate response to exercise. 4. Normal echocardiographic response to exercise. 5. Please see separate report for the EKG portion of the study. Hannah Peralta MD (Electronically Signed) Final Date: 08 April 2023 15:05 S
[2023-04-03 14:08] VITALS: BP 137/82; PULSE 104
[2023-04-03] MEDS: perflutren protein-a microsphr 0.22 mg/mL SDV 3 mL IV (14:49)
== END 2023-04-03 12:55 | disposition home or self-care (01) ==
LOC: CDL 12:55
PROVIDERS: PCP Family Medicine; Visit Provider Internal Medicine Cardiovascular Disease
DX: R55 Syncope and collapse (principal); G90.A Postural orthostatic tachycardia syndrome [POTS]
CPT/HCPCS: 36415; 93017; 93350; 93352; Q9956

== ENCOUNTER 2023-05-09 18:01 | Emergency (ER) | payer OTHER, SELFPAY ==
[2023-05-09 18:04] VITALS: BP 130/85; PULSE 112; RESP 17; TEMP 36.6; O2SAT 99
--- NOTE | 2023-05-09 18:21 | ED_ITS ---
HPI - Headache General: Chief Complaint: Headache Stated Complaint: Migrane Time Seen by Provider: 05/09/23 18:16 History of Present Illness: Patient presents to the ER with complaints of migraine x5 days. Patient has an extensive migraine history she says she is nauseated and has vomited. Patient states this is a normal migraine for her except in duration. Patient is already tried her Imitrex at home. Patient sees Dr. Trejo. Patient stated that the last time she was here she had DHE and it worked very well. Review of Systems General: Reports: 10 or more systems reviewed and unremarkable except in HPI and below PFSH ED PFSH: Medical History Contraception management Patient was counseled regarding all methods of contraception, long acting reversible contraception, indications, contraindications, side effects and complications. She elected for the levonorgestrel-releasing intrauterine system. Return next for insertion of the levonorgestrel-releasing intrauterine system. Time: 30 min. Fibromyalgia Obesity PCOS (polycystic ovarian syndrome) Surgical History History of cholecystectomy 10/2010 History of laminectomy L4-L5 History of tonsillectomy 09/2001 Hx of discectomy 06/2017 L4-L5 Family History Family/Other Diabetes Maternal aunt Breast cancer maternal aunt Heart disease paternal uncle Grandmother Diabetes maternal Grandfather Diabetes paternal Stroke maternal Sister Diabetes Father Diabetes Hypertension Cancer kidney Mother Diabetes Other Hyperlipidemia Lung disease Psychiatric illness Denies family history of CAD (coronary artery disease) Clotting disorder Dementia Chronic kidney disease (CKD) Anesthesia complication Bleeding disorder Social History Smoking and tobacco status: never smoked Second hand smoke exposure: No Alcohol intake: current Alcohol intake frequency: holidays/special occasions only Substance/Drug Use: never Lives independently: Yes Household members: children Marital status: Number of children: 2 Current occupational status: employed Current occupation: [employer] at [employer] Pets and animals: Yes Pets & animals: cat(s) Do you think of yourself as: Straight/Heterosexual Current gender identity: Female Special dotty needs: No Agree to transfusion: Yes Additional social history: well balanced diet Physical Exam Const: COMMON NORMALS: no acute distress, average body habitus, patient oriented x3, no limitations, healthy appearing, alert and well nourished HENMT: COMMON NORMALS: normocephalic, atraumatic, hearing grossly normal bilaterally, external ears normal, Normal external nose present and moist oral mucous membranes HEAD & SCALP: normocephalic and atraumatic NOSE: Normal external nose present EXTERNAL EAR: Yes external ears normal Eye: COMMON NORMALS: Equal, round and reactive pupils present, EOMs intact bilaterally, conjunctivae normal and no scleral icterus CONJUNCTIVA: Yes conjunctivae normal PUPIL: Yes Equal, round and reactive pupils present Neck/C-Spine: COMMON NORMALS: no JVD Chest: COMMONS NORMALS: normal inspection of the chest and normal palpation of entire chest wall Resp: COMMON NORMALS: normal respiratory effort, No retractions, No use of accessory muscles and clear to auscultation bilaterally AUSCULTATION: clear to auscultation bilaterally Cardio: COMMON NORMALS: no JVD, regular rate, regular rhythm, S1 normal heart sound present, S2 normal heart sound present, No gallops present (Cardio), No clicks present (Cardio), No murmurs present (Cardio) and No rub (Cardio) RATE: regular rate RHYTHM: regular rhythm HEART SOUNDS: S1 normal heart sound present and S2 normal heart sound present GI: COMMON NORMALS: Normal to inspection, nondistended, normoactive bowel sounds present, Soft to palpation, non-tender, No hepatosplenomegaly present, no masses and no bruits PALPATION: Yes Soft to palpation and Yes No hepatosplenomegaly present Neuro: COMMON NORMALS: patient oriented x3 SENSORIUM/ORIENTATION: Yes alert Course Vital Signs: Vital signs: Vital Signs Temperature 97.9 F 05/09/23 18:04 Pulse Rate 99 05/09/23 19:22 Respiratory Rate 23 H 05/09/23 19:22 Blood Pressure 113/82 05/09/23 19:22 Pulse Oximetry 97 05/09/23 19:22 Oxygen Delivery Me thod Room Air 05/09/23 19:22 MDM - Headache Medical Decision Making Patient presents to the ER with complaints of migraine over the last 5 days. She is already tried her Imitrex at home. Patient will be given 10 mg Reglan, 50 mg Benadryl, 1 mg DHE. Patient was given these in resultant headache dissipated. Patient is ready to go home. Patient be discharged home Differential Diagnosis Likely migraine; Unlikely tension headache, subarachnoid hemorrhage, headache, meningitis, sinusitis or postconcussion syndrome Medical Records I reviewed the patient's medical records. Lab Data I reviewed the patient's lab results. Discharge Plan Discharge Patient Disposition: Home Clinical Impression: Migraine Qualifiers: Migraine type: unspecified Status migrainosus presence: without status migrainosus Intractability: not intractable Qualified Code(s): G43.909 - Migraine, unspecified, not intractable, without status migrainosus Condition: Stable Prescriptions: No Action albuterol sulfate 90 mcg/actuation HFA aerosol inhaler 2 inh inhalation Q4H PRN (Reason: shortness of breath or wheezing) Qty: 6.7 0RF sumatriptan succinate 100 mg tablet See Rx Instructions PO .COMPLEX Qty: 10 0RF Rx Instructions: take 1 tab at onset of headache; if no relief may repeat 1 tab after at least 2 hrs; max = 2 tabs/24 hr PO Victoza 3-Shalom 0.6 mg/0.1 mL (18 mg/3 mL) pen injector See Rx Instructions SUBCUT .COMPLEX Qty: 9 0RF Rx Instructions: inject 0.6mg subcutaneously once daily x 7 days; then 1.2mg daily Excedrin Migraine 250-250-65 mg tablet 1 tab PO Q6H PRN (Reason: Headache) duloxetine [Cymbalta] 30 mg capsule,delayed release(DR/EC) 30 mg PO DAILY Qty: 30 0RF omeprazole 40 mg capsule,delayed release(DR/EC) See Rx Instructions .ROUTE .COMPLEX Qty: 90 1RF Dose Instruction: take 1 capsule BY MOUTH EVERY DAY Rx Instructions: take 1 capsule BY MOUTH EVERY DAY gabapentin 300 mg capsule See Rx Instructions .ROUTE .COMPLEX Qty: 360 1RF Dose Instruction: take 1 capsule BY MOUTH EVERY MORNING, ONE AT NOON AND TWO AT BEDTIME Rx Instructions: take 1 capsule BY MOUTH EVERY MORNING, ONE AT NOON AND TWO AT BEDTIME montelukast 10 mg tablet See Rx Instructions .ROUTE .COMPLEX Qty: 90 1RF Dose Instruction: TAKE 1 TABLET BY MOUTH EVERY DAY Rx Instructions: TAKE 1 TABLET BY MOUTH EVERY DAY tizanidine 4 mg tablet See Rx Instructions .ROUTE .COMPLEX Qty: 180 1RF Dose Instruction: TAKE 1 TABLET BY MOUTH TWICE DAILY NEEDED FOR MUSCLE SPASTICITY Rx Instructions: TAKE 1 TABLET BY MOUTH TWICE DAILY NEEDED FOR MUSCLE SPASTICITY levocetirizine [Xyzal] 5 mg tablet 5 mg PO DAILY Qty: 30 1RF venlafaxine 150 mg capsule,extended release 24hr 150 mg PO DAILY Qty: 60 0RF Flonase Allergy Relief 50 mcg/actuation spray,suspension 2 spray intranasal DAILY PRN (Reason: Nasal Congestion) Rx Instructions: administer into each nostril Discharge Orders: Discharge ED (Routine); Ordered 05/09/23 Ordered By: Noah Stephenson Referrals: Stiven Zuniga MD [Primary Care Provider] - 1 week Patient Instructions: Headache - Migraine (Adult) Activity Restrictions/Additional Instructions: Please keep your appointment already scheduled with your primary care doctor. Please return to the ER if your headache continues worsens or changes. Coding Level of Care Code ED American Sign Language Teacher for Renita De La Paz
[2023-05-09] MEDS: metoclopramide 5 mg/mL SDV 2 mL 10 MG IVP (18:43)
[2023-05-09] MEDS: diphenhydrAMINE 50 mg/mL SDV 1mL IVP (18:45)
[2023-05-09] MEDS: sodium chloride 0.9% 1,000 ML 999 ML IV (18:49)
[2023-05-09 19:22] VITALS: BP 113/82; PULSE 99; RESP 23; O2SAT 97
[2023-05-09] MEDS: dihydroergotamine 1 mg/mL Inj IVP (19:24)
--- NOTE | 2023-05-09 19:37 | PC.NURSE ---
first dihydroergotamine dose, 0.5mg/mL, given at 1931. next dose timed at 1946 per protocol.
--- NOTE | 2023-05-09 19:39 | PC.NURSE ---
pt verbalized understanding of education on DHE administration, per protocol.
--- NOTE | 2023-05-09 19:48 | PC.NURSE ---
pt stated migraine pain is currently 0/10. this nurse wasted the remainder of the 1mg ampule, 0.5mg/mL.
[2023-05-09 20:32] VITALS: BP 124/85; PULSE 92; RESP 20; O2SAT 99
== END 2023-05-09 20:34 | disposition home or self-care (01) ==
PROVIDERS: Emergency Provider Emergency Medicine; PCP Family Medicine
DX: G43.909 Migraine, unspecified, not intractable, without status migrainosus (principal)
CPT/HCPCS: 96374; 96375; 99284; J1110; J1200; J2765; J7030

== ENCOUNTER 2023-05-25 19:29 | Emergency (ER) | payer OTHER, SELFPAY ==
[2023-05-25 19:46] VITALS: BP 134/82; PULSE 100; RESP 16; TEMP 36.7; O2SAT 97; BMI 54.0
--- NOTE | 2023-05-25 20:33 | W.ED.HA ---
HPI - Headache General: Chief Complaint: Headache Stated Complaint: migraine Time Seen by Provider: 05/25/23 20:16 History of Present Illness: 37-year-old female presents with recurrence of chronic migraine. Patient reports she has tried several different medications to alleviate her migraines through the last several months. She was on Fioricet, Imitrex, Cymbalta all of which have been stopped. She was referred to neurology and is going to establish care this fall. Today she presents with her usual headache which feels like pressure in the base of her head. Today it is moving across the left side of her head to behind her eye. She endorses nausea. She sometimes has vomiting. She has had a headache every day for more than a month. She was here in the ER recently and received metoclopramide, Benadryl, DHE. Her headache went away for approximately 24 hours before coming back. No trauma, fever, new neurologic symptoms. Patient is not on migraine prophylaxis. There are no new features. No red flags. Associated symptoms: Deny chest pain, fever(s), rash or syncope Review of Systems General: Reports: 10 or more systems reviewed and unremarkable except in HPI and below Const: Denies: fever(s), chills or body aches ENMT: Denies: throat pain Card: Denies: chest pain, edema or syncope Resp: Denies: dyspnea or productive cough GI: Denies: abdominal pain : Denies: flank pain, dysuria or urinary frequency Musc: Denies: neck pain, back pain, extremity pain or extremity swelling Skin/Breast: Denies: rash or erythema Neuro: Denies: numbness in extremities, weakness in extremities, lack of coordination or difficulty walking PFS ED PFSH: Medical History Contraception management Patient was counseled regarding all methods of contraception, long acting reversible contraception, indications, contraindications, side effects and complications. She elected for the levonorgestrel-releasing intrauterine system. Return next for insertion of the levonorgestrel-releasing intrauterine system. Time: 30 min. Fibromyalgia Obesity PCOS (polycystic ovarian syndrome) Surgical History History of cholecystectomy 10/2010 History of laminectomy L4-L5 History of tonsillectomy 09/2001 Hx of discectomy 06/2017 L4-L5 Family History Family/Other Diabetes Maternal aunt Breast cancer maternal aunt Heart disease paternal uncle Grandmother Diabetes maternal Grandfather Diabetes paternal Stroke maternal Sister Diabetes Father Diabetes Hypertension Cancer kidney Mother Diabetes Other Hyperlipidemia Lung disease Psychiatric illness Denies family history of CAD (coronary artery disease) Clotting disorder Dementia Chronic kidney disease (CKD) Anesthesia complication Bleeding disorder Social History Smoking and tobacco status: never smoked Second hand smoke exposure: No Alcohol intake: current Alcohol intake frequency: holidays/special occasions only Substance/Drug Use: never Lives independently: Yes Household members: children Marital status: Number of children: 2 Current occupational status: employed Current occupation: [employer] at [employer] Pets and animals: Yes Pets & animals: cat(s) Do you think of yourself as: Straight/Heterosexual Current gender identity: Female Special dotty needs: No Agree to transfusion: Yes Additional social history: well balanced diet Physical Exam Narrative: EXAM NARRATIVE: Nontoxic-appearing. No acute distress. Morbidly obese. Const: COMMON NORMALS: no limitations, alert and well nourished EXAM LIMITATIONS: no altered mental status HENMT: COMMON NORMALS: normocephalic, atraumatic and external ears normal HEAD & SCALP: normocephalic and atraumatic EXTERNAL EAR: Yes external ears normal MOUTH: no muffled voice Eye: COMMON NORMALS: EOMs intact bilaterally, conjunctivae normal and no scleral icterus CONJUNCTIVA: Yes conjunctivae normal OTHER: Pupils equal round reactive to light. Neck/C-Spine: COMMON NORMALS: no JVD GENERAL: Yes normal visual inspection and Yes trachea midline Resp: COMMON NORMALS: normal respiratory effort, No use of accessory muscles and clear to auscultation bilaterally AUSCULTATION: clear to auscultation bilaterally Cardio: COMMON NORMALS: no JVD, regular rate and regular rhythm RATE: regular rate RHYTHM: regular rhythm GI: COMMON NORMALS: Soft to palpation and non-tender PALPATION: Yes Soft to palpation and No Guarding due to palpation present (GI) Extremity: COMMON NORMALS: normal to inspection Neuro: COMMON NORMALS: moves all extremities, no focal motor deficits and no sensory deficits noted SENSORIUM/ORIENTATION: Yes alert SPEECH: speech normal Psych: COMMON NORMALS: mental status grossly normal, Normal thought process present, cooperative, normal affect and speech normal SPEECH: Yes normal speech THOUGHT PROCESS: Normal thought process present Skin: COMMON NORMALS: no rashes or lesions noted, turgor normal and no jaundice GENERAL SKIN EXAM: no rashes or lesions noted and turgor normal Course Vital Signs: Vital signs: Vital Signs Temperature 98.1 F 05/25/23 19:46 Pulse Rate 100 05/25/23 19:46 Respiratory Rate 16 05/25/23 19:46 Blood Pressure 134/82 05/25/23 19:46 Pulse Oximetry 97 05/25/23 19:46 MDM - Headache Medical Decision Making Recurrent status migrainosus without aura. No red flags. Neurologically normal. I have ordered her a migraine cocktail focusing on treating multiple different receptors to get her some relief. Her neurology consult is in until July. I will try her on Nurtec and metoprolol for migraine treatment and prophylaxis, respectively. I explained the potential side effects and need to monitor closely. 9:30 PM. Patient was reexamined and is doing better. She is receiving her last medication which came from pharmacy. This is amitriptyline to help with her headache as well as to help her sleep tonight. Plan to discharge shortly after medication administration. No radiology studies performed this visit Discharge Plan Discharge Patient Disposition: Home Clinical Impression: Chronic migraine without aura with status migrainosus, not intractable Condition: Stable Prescriptions: New Nurtec ODT 75 mg tablet,disintegrating 75 mg PO DAILY PRN (Reason: migraine headache) 30 Days Qty: 18 0RF metoprolol succinate 25 mg tablet extended release 24 hr 25 mg PO DAILY Qty: 30 0RF Discontinued sumatriptan succinate 100 mg tablet See Rx Instructions PO .COMPLEX Qty: 60 0RF Rx Instructions: take 1 tab at onset of headache; if no relief may repeat 1 tab after at least 2 hrs; max = 2 tabs/24 hr PO No Action albuterol sulfate 90 mcg/actuation HFA aerosol inhaler 2 inh inhalation Q4H PRN (Reason: shortness of breath or wheezing) Qty: 6.7 0RF Excedrin Migraine 250-250-65 mg tablet 1 tab PO Q6H PRN (Reason: Headache) Victoza 3-Shalom 0.6 mg/0.1 mL (18 mg/3 mL) pen injector 1.8 mg SUBCUT DAILY 90 Days Qty: 27 2RF trazodone 50 mg tablet 50 mg PO DAILY Qty: 30 1RF omeprazole 40 mg capsule,delayed release(DR/EC) See Rx Instructions .ROUTE .COMPLEX Qty: 90 1RF Dose Instruction: take 1 capsule BY MOUTH EVERY DAY Rx Instructions: take 1 capsule BY MOUTH EVERY DAY gabapentin 300 mg capsule See Rx Instructions .ROUTE .COMPLEX Qty: 360 1RF Dose Instruction: take 1 capsule BY MOUTH EVERY MORNING, ONE AT NOON AND TWO AT BEDTIME Rx Instructions: take 1 capsule BY MOUTH EVERY MORNING, ONE AT NOON AND TWO AT BEDTIME montelukast 10 mg tablet See Rx Instructions .ROUTE .COMPLEX Qty: 90 1RF Dose Instruction: TAKE 1 TABLET BY MOUTH EVERY DAY Rx Instructions: TAKE 1 TABLET BY MOUTH EVERY DAY tizanidine 4 mg tablet See Rx Instructions .ROUTE .COMPLEX Qty: 180 1RF Dose Instruction: TAKE 1 TABLET BY MOUTH TWICE DAILY NEEDED FOR MUSCLE SPASTICITY Rx Instructions: TAKE 1 TABLET BY MOUTH TWICE DAILY NEEDED FOR MUSCLE SPASTICITY levocetirizine [Xyzal] 5 mg tablet 5 mg PO DAILY Qty: 30 1RF venlafaxine 150 mg capsule,extended release 24hr 150 mg PO DAILY Qty: 60 0RF Flonase Allergy Relief 50 mcg/actuation spray,suspension 2 spray intranasal DAILY PRN (Reason: Nasal Congestion) Rx Instructions: administer into each nostril Discharge Orders: Discharge ED (Routine); Ordered 05/25/23 Ordered By: Jamal Brunner Referrals: Stiven Zuniga MD [Primary Care Provider] - 1 week (Started on Nurtec and Metoprolol for migraines--f/u ER visit one week to check on things) Patient Instructions: Headache - Migraine (Adult), Opioid Safety, Pain Management Activity Restrictions/Additional Instructions: You have been started on 2 new medications. The first is known as Nurtec. This can be used a maximum of once daily and up to 18 times per month. Please read the entire handout from the pharmacist about mechanism of action, potential side effects, interactions. You have also been started on metoprolol succinate 25 mg daily. This medication can be used for migraine prophylaxis. 1 potential side effect is low blood pressure or low heart rate. However, 25 mg is a low dose. We are hoping that the benefits outweigh the risks. Please keep track of your heart rate and blood pressure. If you feel lightheaded or dizzy, check her vital signs. If your heart rate is less than 60 or your blood pressure is less than 110 systolic, then hold your next dose of medication. Follow-up with your doctor in 1 week. Coding Level of Care Code ED Director Information Security for Renita De La Paz
[2023-05-25] MEDS: HYDROcodone-acetaminophen 5-325 mg Tablet 1 TAB PO (20:48)
[2023-05-25] MEDS: metoprolol succinate ER (24 HR) 25 mg Tablet PO (20:48)
[2023-05-25] MEDS: prochlorperazine 10 mg Tablet PO (20:48)
[2023-05-25] MEDS: benztropine 1 mg Tablet PO (20:48)
[2023-05-25] MEDS: ketorolac 30 mg/mL INJ IM (20:51)
[2023-05-25] MEDS: dexamethasone 10 mg/mL INJ IM (20:51)
[2023-05-25] MEDS: amitriptyline 25 mg Tablet PO (21:24)
== END 2023-05-25 21:37 | disposition home or self-care (01) ==
PROVIDERS: Emergency Provider Emergency Medicine; PCP Family Medicine
DX: G43.701 Chronic migraine without aura, not intractable, with status migrainosus (principal)
CPT/HCPCS: 96372; 99284; J1100; J1885; Q0164

== ENCOUNTER 2023-06-07 16:59 | Emergency (ER) | payer OTHER, SELFPAY ==
[2023-06-07 17:03] VITALS: BP 147/111; PULSE 119; RESP 17; TEMP 36.7; O2SAT 97
--- NOTE | 2023-06-07 17:59 | W.ED.EXTPRO ---
HPI - Extremity Problem General: Chief complaint: Extremity Problem,Nontraumatic Stated complaint: left calf pain Time Seen by Provider: 06/07/23 17:37 Source: patient Mode of arrival: ambulatory Limitations: no limitations History of Present Illness: This 37-year-old female presents to the ER for evaluation of redness, swelling and pain to the left calf that started 3 days ago. Area is painful to touch and the swelling has progressively worsened. She showed the swelling to her coworkers who advised her to come to the ER to check it out for blood clots. She has no chest pain, shortness of breath, fever or any signs of systemic illness. Associated symptoms: Deny chest pain Review of Systems Const: Denies: chills, body aches or change in appetite Eyes: Denies: change in vision or eye discharge ENMT: Denies: throat pain, dental pain or nasal discharge Card: Denies: chest pain or lightheadedness : Denies: dysuria Musc: Reports: other (swelling and pain left leg) Neuro: Denies: headache(s) or weakness in extremities Psych: Denies: depression Humberto/Lymph: Denies: easy bruising All/Imm: Denies: urticaria, tongue swelling or facial swelling PFSH ED PFSH: Medical History Contraception management Patient was counseled regarding all methods of contraception, long acting reversible contraception, indications, contraindications, side effects and complications. She elected for the levonorgestrel-releasing intrauterine system. Return next for insertion of the levonorgestrel-releasing intrauterine system. Time: 30 min. Fibromyalgia Obesity PCOS (polycystic ovarian syndrome) Surgical History History of cholecystectomy 10/2010 History of laminectomy L4-L5 History of tonsillectomy 09/2001 Hx of discectomy 06/2017 L4-L5 Family History Family/Other Diabetes Maternal aunt Breast cancer maternal aunt Heart disease paternal uncle Grandmother Diabetes maternal Grandfather Diabetes paternal Stroke maternal Sister Diabetes Father Diabetes Hypertension Cancer kidney Mother Diabetes Other Hyperlipidemia Lung disease Psychiatric illness Denies family history of CAD (coronary artery disease) Clotting disorder Dementia Chronic kidney disease (CKD) Anesthesia complication Bleeding disorder Social History Smoking and tobacco status: never smoked Second hand smoke exposure: No Alcohol intake: current Alcohol intake frequency: holidays/special occasions only Substance/Drug Use: never Lives independently: Yes Household members: children Marital status: Number of children: 2 Current occupational status: employed Current occupation: [employer] at [employer] Pets and animals: Yes Pets & animals: cat(s) Do you think of yourself as: Straight/Heterosexual Current gender identity: Female Special dotty needs: No Agree to transfusion: Yes Additional social history: well balanced diet Physical Exam Const: COMMON NORMALS: no acute distress, patient oriented x3, no limitations and alert NUTRITIONAL APPEARANCE: obese HENMT: COMMON NORMALS: normocephalic HEAD & SCALP: normocephalic Eye: COMMON NORMALS: EOMs intact bilaterally Neck/C-Spine: COMMON NORMALS: full ROM and supple Chest: COMMONS NORMALS: normal inspection of the chest Resp: COMMON NORMALS: normal respiratory effort, No retractions, No use of accessory muscles and clear to auscultation bilaterally AUSCULTATION: clear to auscultation bilaterally Cardio: COMMON NORMALS: regular rhythm and No murmurs present (Cardio) RATE: tachycardic RHYTHM: regular rhythm GI: COMMON NORMALS: Normal to inspection, nondistended, normoactive bowel sounds present and non-tender : COMMON NORMALS: Yes no CVA tenderness BLADDER/KIDNEY EXAM: Yes no CVA tenderness Back/Pelvis: COMMON NORMALS: no CVA tenderness and no thoracic nor lumbar tenderness Extremity: GENERAL: Yes normal exam except as noted Neuro: COMMON NORMALS: patient oriented x3 and no focal motor deficits SENSORIUM/ORIENTATION: Yes alert Psych: COMMON NORMALS: mental status grossly normal and cooperative Course Vital Signs: Vital signs: Vital Signs Temperature 98.1 F 06/07/23 17:03 Pulse Rate 103 H 06/07/23 19:58 Respiratory Rate 17 06/07/23 17:03 Blood Pressure 133/100 06/07/23 19:31 Pulse Oximetry 98 06/07/23 19:58 Oxygen Delivery Me thod Room Air 06/07/23 19:16 MDM - Extremity (Nontraumatic) Medical Decision Making Medical decision making: History as above. Venous Doppler ultrasound was obtained to rule out DVT. It is negative for DVT. White count is normal with no fever. The erythematous, swollen, warm and tender area is most consistent with cellulitis. Given that she is nontoxic, able to tolerate orally with no vomiting, she will be treated with outpatient oral antibiotics. Patient was advised that if the area of redness and swelling worsens, she should return for admission and IV antibiotics. Otherwise, she may follow-up with her primary care provider for reevaluation. Lab Data 06/07/23 17:55 06/07/23 17:55 Radiology Impressions Venous Duplex 06/07/23 18:06 IMPRESSION: No sonographic evidence of deep vein thrombosis. Laboratory Results WBC 5.73 10^3/uL (3.29-11.43) 06/07/23 17:55 RBC 4.72 10^6/uL (3.85-5.65) 06/07/23 17:55 Hgb 12.60 g/dL (11.27-16.99) 06/07/23 17:55 Hct 39.4 % (36-47) 06/07/23 17:55 MCV 83.5 fl (85-98) L 06/07/23 17:55 MCH 26.7 pg (27-33) L 06/07/23 17:55 MCHC 32.0 g/dL (30-55) 06/07/23 17:55 RDW 12.6 % (12.1-15.1) 06/07/23 17:55 Plt Count 250 10^3/cmm (157-399) 06/07/23 17:55 MPV 10.2 fL (7.4-10.4) 06/07/23 17:55 Neut % (Auto) 55.4 % 06/07/23 17:55 Lymph % (Auto) 31.2 % 06/07/23 17:55 [place] % (Auto) 9.9 % 06/07/23 17:55 Eos % (Auto) 3.0 % 06/07/23 17:55 Baso % (Auto) 0.3 % 06/07/23 17:55 Neut # (Auto) 3.17 10^3/uL (1.8-7.7) 06/07/23 17:55 Lymph # (Auto) 1.8 10^3/uL (0.8-4.8) 06/07/23 17:55 [place] # (Auto) 0.6 10^3/uL (0.2-0.9) 06/07/23 17:55 Eos # (Auto) 0.2 10^3/uL (0.0-0.8) 06/07/23 17:55 Baso # (Auto) 0.0 10^3/uL (0.0-0.1) 06/07/23 17:55 Nucleated RBC % (auto) 0 % 06/07/23 17:55 Nucleated RBCs # 0.0 /100WBC 06/07/23 17:55 Sodium 135 mmol/L (136-145) L 06/07/23 17:55 Potassium 3.7 mmol/L (3.5-5.1) 06/07/23 17:55 Chloride 100 mmol/L (98-107) 06/07/23 17:55 Carbon Dioxide 25 mmol/L (22-29) 06/07/23 17:55 Anion Gap 13.7 (5-19) 06/07/23 17:55 BUN 6 mg/dL (6-20) 06/07/23 17:55 Creatinine 0.7 mg/dL (0.5-0.9) 06/07/23 17:55 GFR Calculation 93.6 mL/min (90-130) 06/07/23 17:55 Glucose 183 mg/dL (65-115) H 06/07/23 17:55 Calculated Osmolality 282 mOsm/kg (285-295) L 06/07/23 17:55 Calcium 8.8 mg/dL (8.5-10.5) 06/07/23 17:55 Total Bilirubin 0.3 mg/dL (0.15-1.2) 06/07/23 17:55 AST 26 U/L (0-32) 06/07/23 17:55 ALT 27 U/L (0-33) 06/07/23 17:55 Alkaline Phosphatase 159 U/L (35-105) H 06/07/23 17:55 Total Protein 7.1 g/dL (6.6-8.7) 06/07/23 17:55 Albumin 3.8 g/dL (3.5-5.2) 06/07/23 17:55 Globulin 3.3 g/dL (1.3-4.6) 06/07/23 17:55 All radiology interpretation(s) finalized by discharge Discharge Plan Discharge Patient Disposition: Home Clinical Impression: Cellulitis of left leg Condition: Stable Prescriptions: New clindamycin HCl 300 mg capsule 300 mg PO QID 7 Days Qty: 28 0RF tramadol 50 mg tablet 50 mg PO TID PRN (Reason: pain) Qty: 20 0RF No Action albuterol sulfate 90 mcg/actuation HFA aerosol inhaler 2 inh inhalation Q4H PRN (Reason: shortness of breath or wheezing) Qty: 6.7 0RF Excedrin Migraine 250-250-65 mg tablet 1 tab PO Q6H PRN (Reason: Headache) Victoza 3-Shalom 0.6 mg/0.1 mL (18 mg/3 mL) pen injector 1.8 mg SUBCUT DAILY 90 Days Qty: 27 2RF trazodone 50 mg tablet 50 mg PO DAILY Qty: 30 1RF venlafaxine 75 mg capsule,extended release 24hr 75 mg PO DAILY Qty: 14 0RF Nurtec ODT 75 mg tablet,disintegrating 75 mg PO DAILY PRN (Reason: migraine headache) 30 Days Qty: 18 0RF amitriptyline 25 mg tablet 25 mg PO .qhs Qty: 30 0RF omeprazole 40 mg capsule,delayed release(DR/EC) See Rx Instructions .ROUTE .COMPLEX Qty: 90 1RF Dose Instruction: take 1 capsule BY MOUTH EVERY DAY Rx Instructions: take 1 capsule BY MOUTH EVERY DAY gabapentin 300 mg capsule See Rx Instructions .ROUTE .COMPLEX Qty: 360 1RF Dose Instruction: take 1 capsule BY MOUTH EVERY MORNING, ONE AT NOON AND TWO AT BEDTIME Rx Instructions: take 1 capsule BY MOUTH EVERY MORNING, ONE AT NOON AND TWO AT BEDTIME montelukast 10 mg tablet See Rx Instructions .ROUTE .COMPLEX Qty: 90 1RF Dose Instruction: TAKE 1 TABLET BY MOUTH EVERY DAY Rx Instructions: TAKE 1 TABLET BY MOUTH EVERY DAY tizanidine 4 mg tablet See Rx Instructions .ROUTE .COMPLEX Qty: 180 1RF Dose Instruction: TAKE 1 TABLET BY MOUTH TWICE DAILY NEEDED FOR MUSCLE SPASTICITY Rx Instructions: TAKE 1 TABLET BY MOUTH TWICE DAILY NEEDED FOR MUSCLE SPASTICITY levocetirizine [Xyzal] 5 mg tablet 5 mg PO DAILY Qty: 30 1RF metoprolol succinate 25 mg tablet extended release 24 hr 25 mg PO DAILY Qty: 30 0RF Flonase Allergy Relief 50 mcg/actuation spray,suspension 2 spray intranasal DAILY PRN (Reason: Nasal Congestion) Rx Instructions: administer into each nostril Discharge Orders: Discharge ED (Routine); Ordered 06/07/23 Ordered By: Donna Nielsen Referrals: Stiven Zuniga MD [Primary Care Provider] - Discharge Diet: Usual diet Discharge Activity: Resume usual activity Patient Instructions: Opioid Safety, Pain Management Activity Restrictions/Additional Instructions: Take clindamycin as prescribed. Take tramadol as needed for pain. Follow-up with your primary care physician in 2 to 3 days for reevaluation. Return if you develop fever with temperature of 100.4 or more, worsening of the redness and swelling in the calf or any new concerning symptoms. Coding Level of Care Code ED Registered Nurse Float Pool for Renita De La Paz
--- NOTE | 2023-06-07 18:06 | USR_ITS ---
PROCEDURE INFORMATION: Exam: US Duplex Left Lower Extremity Veins, Limited Exam date and time: 06/07/2023 6:18 PM Age: 37 years old Clinical indication: Leg, lower; Patient HX: Pain and erythema, left posterior mid calf x 3 days. No known trauma. Morbid obesity. No history of dvt per patient. ; Additional info: Left leg pain and swelling TECHNIQUE: Imaging protocol: Real-time duplex ultrasound of the left extremity with 2-D arnold scale, color Doppler flow and spectral waveform analysis including responses to compression and other maneuvers (when performed) with image documentation. Limited exam focused on the left lower extremity veins. COMPARISON: MR knee LT wo con* [id number] 10/31/2021 10:17 AM FINDINGS: Left deep veins: Unremarkable. The common femoral, femoral, proximal profunda femoral, popliteal, posterior tibial and peroneal veins are patent without thrombus. Normal compressibility, augmentation response and Doppler waveforms. Superficial veins: Unremarkable. Saphenofemoral junction is patent without thrombus. Soft tissues: Unremarkable. US/CV venous duplex [facility] [id number] IMPRESSION: No sonographic evidence of deep vein thrombosis.
[2023-06-07 18:25] LABS: Basophils % 0.3 %; Eosinophils # 0.2 10^3/uL (0.0-0.8); Hematocrit 39.4 % (36-47); Lymphocytes # 1.8 10^3/uL (0.8-4.8); Lymphocytes % 31.2 %; Mean Corpuscular Hemoglobin 26.7 pg (27-33); Mean Corpuscular Volume 83.5 fl (85-98); Mean Platelet Volume 10.2 fL (7.4-10.4); Monocytes # 0.6 10^3/uL (0.2-0.9); Monocytes % 9.9 %; Neutrophils # 3.17 10^3/uL (1.8-7.7); Neutrophils % 55.4 %; Nucleated Red Blood Cells % 0 %; Platelet Count 250 10^3/cmm (157-399); Red Blood Count 4.72 10^6/uL (3.85-5.65); Red Cell Distribution Width 12.6 % (12.1-15.1); White Blood Count 5.73 10^3/uL (3.29-11.43)
[2023-06-07 18:36] LABS: Alanine Aminotransferase 27 U/L (0-33); Albumin Level 3.8 g/dL (3.5-5.2); Alkaline Phosphatase 159 U/L (35-105); Anion Gap 13.7 (5-19); Aspartate Amino Transferase 26 U/L (0-32); Blood Urea Nitrogen 6 mg/dL (6-20); Calcium 8.8 mg/dL (8.5-10.5); Carbon Dioxide 25 mmol/L (22-29); Chloride 100 mmol/L (98-107); Globulin 3.3 g/dL (1.3-4.6); Glomerular Filtration Rate 93.6 mL/min (90-130); Glucose 183 mg/dL (65-115); Osmolality Calculated 282 mOsm/kg (285-295); Potassium 3.7 mmol/L (3.5-5.1); Sodium 135 mmol/L (136-145); Total Bilirubin 0.3 mg/dL (0.15-1.2); Total Protein 7.1 g/dL (6.6-8.7)
[2023-06-07 18:43] LABS: Slide Review Slide Review Perform
[2023-06-07 18:47] VITALS: PULSE 98; O2SAT 98
[2023-06-07 18:50] VITALS: BP 135/74; PULSE 99; O2SAT 99
--- NOTE | 2023-06-07 19:08 | PC.NURSE ---
Report received from KELLIE Phillips at this time.
[2023-06-07 19:16] VITALS: BP 145/94; PULSE 96; O2SAT 100
[2023-06-07 19:31] VITALS: BP 133/100; PULSE 100
[2023-06-07] MEDS: clindamycin 150 mg Capsule 300 MG PO (19:46)
[2023-06-07 19:58] VITALS: PULSE 103; O2SAT 98
== END 2023-06-07 19:59 | disposition home or self-care (01) ==
PROVIDERS: Emergency Provider Family Medicine; PCP Family Medicine
DX: L03.116 Cellulitis of left lower limb (principal)
CPT/HCPCS: 80053; 85025; 93971; 99284

== ENCOUNTER 2023-06-09 07:40 | Emergency (ER) | payer OTHER, SELFPAY ==
[2023-06-09 07:48] VITALS: BP 150/119; PULSE 117; RESP 16; TEMP 36.8; O2SAT 95
--- NOTE | 2023-06-09 07:55 | W.ED.HA ---
HPI - Headache General: Chief Complaint: Headache Stated Complaint: headache Time Seen by Provider: 06/09/23 07:40 History of Present Illness: Patient is a 37-year-old female that presents to the emergency department with complaints of migraine and nausea and vomiting. Onset of migraine 3 days ago, onset of nausea and vomiting last night. Patient states that she has been vomiting throughout the night. Denies fever or chills Denies diarrhea or constipation Denies chest pain shortness of breath Patient is morbidly obese with a history of migraines, diabetes, GERD, asthma. Associated symptoms: Deny chest pain, confusion, fever(s), malaise, nausea, rash or vomiting Review of Systems General: Reports: 10 or more systems reviewed and unremarkable except in HPI and below Const: Denies: fever(s), chills, change in appetite, change in weight, fatigue or malaise Card: Denies: chest pain, palpitations, irregular heart rhythm, edema, dyspnea on exertion, orthopnea or leg pain with exertion Resp: Denies: dyspnea, productive cough, non-productive cough, wheezing, stridor or chest congestion GI: Denies: abdominal pain, nausea, vomiting, dysphagia, diarrhea, constipation, bloating, GI cramping or hematochezia : Denies: flank pain, difficulty voiding, dysuria, urinary frequency, urinary urgency, urinary hesitancy, oliguria or hematuria Musc: Denies: neck pain, back pain, extremity pain, joint pain, joint swelling, joint redness, joint warmth or muscle weakness Skin/Breast: Denies: rash, pruritus, erythema, photosensitivity or new lesions Neuro: Reports: headache(s); Denies: numbness in extremities, weakness in extremities, sensory changes, lack of coordination, difficulty walking, frequent falls, dizziness, confusion, Slurred speech present, difficulty communicating thoughts, seizure-like activity or involuntary movements Endo: Denies: polyuria, polydipsia or tired all the time Humberto/Lymph: Denies: easy bruising or easy bleeding PFSH ED PFSH: Medical History Contraception management Patient was counseled regarding all methods of contraception, long acting reversible contraception, indications, contraindications, side effects and complications. She elected for the levonorgestrel-releasing intrauterine system. Return next for insertion of the levonorgestrel-releasing intrauterine system. Time: 30 min. Fibromyalgia Obesity PCOS (polycystic ovarian syndrome) Surgical History History of cholecystectomy 10/2010 History of laminectomy L4-L5 History of tonsillectomy 09/2001 Hx of discectomy 06/2017 L4-L5 Family History Family/Other Diabetes Maternal aunt Breast cancer maternal aunt Heart disease paternal uncle Grandmother Diabetes maternal Grandfather Diabetes paternal Stroke maternal Sister Diabetes Father Diabetes Hypertension Cancer kidney Mother Diabetes Other Hyperlipidemia Lung disease Psychiatric illness Denies family history of CAD (coronary artery disease) Clotting disorder Dementia Chronic kidney disease (CKD) Anesthesia complication Bleeding disorder Social History Smoking and tobacco status: never smoked Second hand smoke exposure: No Alcohol intake: current Alcohol intake frequency: holidays/special occasions only Substance/Drug Use: never Lives independently: Yes Household members: children Marital status: Number of children: 2 Current occupational status: employed Current occupation: [employer] at [employer] Pets and animals: Yes Pets & animals: cat(s) Do you think of yourself as: Straight/Heterosexual Current gender identity: Female Special dotty needs: No Agree to transfusion: Yes Additional social history: well balanced diet Physical Exam Const: COMMON NORMALS: no acute distress, patient oriented x3 and alert GENERAL APPEARANCE: cooperative ORIENTATION/CONSCIOUSNESS: Yes awake, Yes oriented to person, Yes oriented to place and Yes oriented to time HENMT: COMMON NORMALS: normocephalic and atraumatic HEAD & SCALP: normocephalic and atraumatic FACE & SINUS: normal facial exam MOUTH: Normal oral and palatal mucosa present THROAT: posterior oropharynx normal Eye: COMMON NORMALS: Equal, round and reactive pupils present, EOMs intact bilaterally, conjunctivae normal and no scleral icterus GENERAL EYE: appearance normal, both eyes and all related structures ALIGNMENT: Yes alignment normal PERIORBITAL: periorbital findings normal CONJUNCTIVA: Yes conjunctivae normal PUPIL: Yes Equal, round and reactive pupils present Neck/C-Spine: COMMON NORMALS: full ROM GENERAL: Yes normal visual inspection Lymph: LYMPHATIC: no lymphadenopathy noted Chest: COMMONS NORMALS: normal inspection of the chest Breast/axilla inspection: Yes no chest deformity, asymmetry, normal contours, no nodules, masses, tenderness Resp: COMMON NORMALS: normal respiratory effort, No retractions, No use of accessory muscles and clear to auscultation bilaterally EFFORT & INSPECTION: Yes able to speak in complete sentences and Yes symmetric chest movement AUSCULTATION: clear to auscultation bilaterally Cardio: COMMON NORMALS: regular rhythm and Peripheral pulses 2+ throughout RATE: tachycardic RHYTHM: regular rhythm PERIPHERAL PULSES: Peripheral pulses 2+ throughout GI: COMMON NORMALS: Normal to inspection, nondistended, normoactive bowel sounds present, Soft to palpation, non-tender and No hepatosplenomegaly present INSPECTION: Yes normal to inspection AUSCULTATION: Yes normoactive bowel sounds PALPATION: Yes Soft to palpation and Yes No hepatosplenomegaly present RECTAL EXAM: deferred Extremity: COMMON NORMALS: normal to inspection GENERAL: Yes normal exam except as noted Neuro: COMMON NORMALS: patient oriented x3 SENSORIUM/ORIENTATION: Yes alert, Yes oriented to person, Yes oriented to place and Yes oriented to time CRANIAL NERVES: Yes CN normal except as noted Psych: COMMON NORMALS: mental status grossly normal, Normal thought process present, cooperative, activity/motor behavior normal, denies homicidal ideation and denies suicidal ideation THOUGHT PROCESS: Normal thought process present Skin: COMMON NORMALS: no rashes or lesions noted, no wounds and turgor normal GENERAL SKIN EXAM: no rashes or lesions noted and turgor normal Course Vital Signs: Vital signs: Vital Signs Temperature 98.3 F 06/09/23 07:48 Pulse Rate 92 06/09/23 09:08 Respiratory Rate 14 06/09/23 09:08 Blood Pressure 115/77 06/09/23 09:08 Pulse Oximetry 91 06/09/23 09:08 Oxygen Delivery Me thod Room Air 06/09/23 09:08 MDM - Headache Medical Decision Making Patient presents with 72-hour history of headache and 12-24-hour history of nausea and vomiting. Differential diagnosis includes migraine, cluster headache, Patient has had migraine, which is similar to her previous migraines, for the last 72 hours. 12 to 24 hours ago she began vomiting. Has been unable to keep her migraine medication down or her antiemetics. Obtained an IV, sent a CBC CMP, and treated her pain. She received a liter bolus of normal saline, Zofran, Toradol, Decadron, Norflex. Patient responded very well to the above-mentioned medications and fluids. Her laboratory studies revealed no leukocytosis, anemias, significant electrolyte abnormalities. Her tachycardia improved. She has a blood pressure 115/77, 92 pulse, 14 respirations and 95% on room air. Patient is going to be discharged home with prescriptions. She needs to follow-up with her primary care doctor. All questions answered Lab Data 06/09/23 08:04 06/09/23 08:04 Laboratory Results WBC 9.41 10^3/uL (3.29-11.43) 06/09/23 08:04 RBC 4.72 10^6/uL (3.85-5.65) 06/09/23 08:04 Hgb 12.60 g/dL (11.27-16.99) 06/09/23 08:04 Hct 40.0 % (36-47) 06/09/23 08:04 MCV 84.7 fl (85-98) L 06/09/23 08:04 MCH 26.7 pg (27-33) L 06/09/23 08:04 MCHC 31.5 g/dL (30-55) 06/09/23 08:04 RDW 12.7 % (12.1-15.1) 06/09/23 08:04 Plt Count 236 10^3/cmm (157-399) 06/09/23 08:04 MPV 10.3 fL (7.4-10.4) 06/09/23 08:04 Neut % (Auto) 74.6 % 06/09/23 08:04 Lymph % (Auto) 20.4 % 06/09/23 08:04 [place] % (Auto) 4.1 % 06/09/23 08:04 Eos % (Auto) 0.4 % 06/09/23 08:04 Baso % (Auto) 0.3 % 06/09/23 08:04 Neut # (Auto) 7.01 10^3/uL (1.8-7.7) 06/09/23 08:04 Lymph # (Auto) 1.9 10^3/uL (0.8-4.8) 06/09/23 08:04 [place] # (Auto) 0.4 10^3/uL (0.2-0.9) 06/09/23 08:04 Eos # (Auto) 0.0 10^3/uL (0.0-0.8) 06/09/23 08:04 Baso # (Auto) 0.0 10^3/uL (0.0-0.1) 06/09/23 08:04 Nucleated RBC % (auto) 0 % 06/09/23 08:04 Nucleated RBCs # 0.0 /100WBC 06/09/23 08:04 Sodium 134 mmol/L (136-145) L 06/09/23 08:04 Potassium 4.3 mmol/L (3.5-5.1) 06/09/23 08:04 Chloride 96 mmol/L (98-107) L 06/09/23 08:04 Carbon Dioxide 26 mmol/L (22-29) 06/09/23 08:04 Anion Gap 16.3 (5-19) 06/09/23 08:04 BUN 9 mg/dL (6-20) 06/09/23 08:04 Creatinine 0.6 mg/dL (0.5-0.9) 06/09/23 08:04 GFR Calculation 111.9 mL/min (90-130) 06/09/23 08:04 Glucose 209 mg/dL (65-115) H 06/09/23 08:04 Calculated Osmolality 283 mOsm/kg (285-295) L 06/09/23 08:04 Calcium 8.7 mg/dL (8.5-10.5) 06/09/23 08:04 Total Bilirubin 0.4 mg/dL (0.15-1.2) 06/09/23 08:04 AST 23 U/L (0-32) 06/09/23 08:04 ALT 24 U/L (0-33) 06/09/23 08:04 Alkaline Phosphatase 154 U/L (35-105) H 06/09/23 08:04 Total Protein 7.3 g/dL (6.6-8.7) 06/09/23 08:04 Albumin 3.9 g/dL (3.5-5.2) 06/09/23 08:04 Globulin 3.4 g/dL (1.3-4.6) 06/09/23 08:04 No radiology studies performed this visit Discharge Plan Discharge Patient Disposition: Home Clinical Impression: Migraine Condition: Stable Prescriptions: New ketorolac 10 mg tablet 10 mg PO TID PRN (Reason: pain) 5 Days Qty: 15 0RF ondansetron 4 mg tablet,disintegrating 4 mg PO Q8H PRN (Reason: nausea and vomiting) 5 Days Qty: 20 0RF No Action albuterol sulfate 90 mcg/actuation HFA aerosol inhaler 2 inh inhalation Q4H PRN (Reason: shortness of breath or wheezing) Qty: 6.7 0RF Excedrin Migraine 250-250-65 mg tablet 2 tab PO Q6H PRN (Reason: Headache) Nurtec ODT 75 mg tablet,disintegrating 75 mg PO DAILY PRN (Reason: migraine headache) 30 Days Qty: 18 0RF Rx Instructions: (NEEDS PA -WAITING ON PCP TO GET PA APPROVED) gabapentin 300 mg capsule See Rx Instructions .ROUTE .COMPLEX Qty: 360 1RF Dose Instruction: take 1 capsule BY MOUTH EVERY MORNING, ONE AT NOON AND TWO AT BEDTIME Rx Instructions: TAKE ONE CAPSULE (300MG) BY MOUTH EVERY MORNING, ONE CAPSULE (300MG) AT NOON AND TWO CAPSULE (600MG) AT BEDTIME clindamycin HCl 300 mg capsule 300 mg PO QID 7 Days Qty: 28 0RF Rx Instructions: FOR 7 DAYS (RX FILLED 06/08/23) tramadol 50 mg tablet 50 mg PO TID PRN (Reason: pain) Qty: 20 0RF fluticasone propionate [Flonase Allergy Relief] 50 mcg/actuation spray,suspension 2 spray intranasal DAILY PRN (Reason: Allergy Symptoms) Rx Instructions: administer into each nostril venlafaxine 75 mg capsule,extended release 24hr 75 mg PO QAM trazodone 50 mg tablet 50 mg PO BEDTIME PRN (Reason: Sleep) tizanidine 4 mg tablet 4 mg PO BID PRN (Reason: Muscle Spasticity) omeprazole 40 mg capsule,delayed release(DR/EC) 40 mg PO BEDTIME amitriptyline 25 mg tablet 25 mg PO BEDTIME montelukast 10 mg tablet 10 mg PO BEDTIME metoprolol succinate 25 mg tablet extended release 24 hr 25 mg PO QAM Xyzal 5 mg tablet 5 mg PO QAM Victoza 3-Shalom 0.6 mg/0.1 mL (18 mg/3 mL) pen injector 1.8 mg SUBCUT QAM Discharge Orders: Discharge ED (Routine); Ordered 06/09/23 Ordered By: Christen Lino Referrals: Stiven Zuniga MD [Primary Care Provider] - Discharge Diet: Advance as tolerated Discharge Activity: Resume usual activity Patient Instructions: Migraine Headache (ED), Pain Management Activity Restrictions/Additional Instructions: Do not take additional medications like ibuprofen, naproxen, Excedrin while taking the ketorolac. Zofran as needed for nausea and vomiting Plenty of fluids Use these above-mentioned medications as needed with Zanaflex (previously prescribed) if your headache returns. 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
[2023-06-09] MEDS: ondansetron 2 mg/ML SDV 2 mL 4 MG IVP (08:05)
[2023-06-09] MEDS: dexamethasone 10 mg/mL INJ IVP (08:06)
[2023-06-09] MEDS: orphenadrine 30 mg/mL Inj 2 mL 60 MG IVP (08:06)
[2023-06-09] MEDS: sodium chloride 0.9% 1,000 ML 999 ML IV (08:07)
[2023-06-09] MEDS: ketorolac 30 mg/mL INJ IVP (08:07)
[2023-06-09 08:13] LABS: Basophils % 0.3 %; Eosinophils % 0.4 %; Lymphocytes # 1.9 10^3/uL (0.8-4.8); Lymphocytes % 20.4 %; Mean Corpuscular HGB Conc 31.5 g/dL (30-55); Mean Corpuscular Hemoglobin 26.7 pg (27-33); Mean Corpuscular Volume 84.7 fl (85-98); Mean Platelet Volume 10.3 fL (7.4-10.4); Monocytes # 0.4 10^3/uL (0.2-0.9); Monocytes % 4.1 %; Neutrophils # 7.01 10^3/uL (1.8-7.7); Neutrophils % 74.6 %; Nucleated Red Blood Cells % 0 %; Platelet Count 236 10^3/cmm (157-399); Red Blood Count 4.72 10^6/uL (3.85-5.65); Red Cell Distribution Width 12.7 % (12.1-15.1); White Blood Count 9.41 10^3/uL (3.29-11.43)
[2023-06-09 08:48] LABS: Alanine Aminotransferase 24 U/L (0-33); Albumin Level 3.9 g/dL (3.5-5.2); Alkaline Phosphatase 154 U/L (35-105); Blood Urea Nitrogen 9 mg/dL (6-20); Calcium 8.7 mg/dL (8.5-10.5); Carbon Dioxide 26 mmol/L (22-29); Chloride 96 mmol/L (98-107); Globulin 3.4 g/dL (1.3-4.6); Glomerular Filtration Rate 111.9 mL/min (90-130); Glucose 209 mg/dL (65-115); Osmolality Calculated 283 mOsm/kg (285-295); Sodium 134 mmol/L (136-145); Total Bilirubin 0.4 mg/dL (0.15-1.2); Total Protein 7.3 g/dL (6.6-8.7)
[2023-06-09 08:52] LABS: Slide Review Slide Review Perform
[2023-06-09 08:53] LABS: Anion Gap 16.3 (5-19); Aspartate Amino Transferase 23 U/L (0-32); Potassium 4.3 mmol/L (3.5-5.1)
[2023-06-09 09:08] VITALS: BP 115/77; PULSE 92; RESP 14; O2SAT 91
[2023-06-09 10:15] VITALS: BP 123/68; PULSE 104; RESP 14; O2SAT 98
== END 2023-06-09 10:19 | disposition home or self-care (01) ==
PROVIDERS: Emergency Provider Nurse Practitioner; PCP Family Medicine
DX: G43.909 Migraine, unspecified, not intractable, without status migrainosus (principal)
CPT/HCPCS: 80053; 85025; 96361; 96374; 96375; 99284; J1100; J1885; J2360; J2405; J7030

== ENCOUNTER 2023-06-27 17:21 | Emergency (ER) | payer OTHER, SELFPAY ==
[2023-06-27 17:41] VITALS: BP 126/74; PULSE 113; RESP 18; TEMP 36.8; O2SAT 98
--- NOTE | 2023-06-27 17:52 | XRR_ITS ---
PROCEDURE INFORMATION: Exam: XR Right Ribs with PA Chest Exam date and time: 06/27/2023 6:13 PM Age: 37 years old Clinical indication: Chest wall pain; Right; Additional info: Pain, fall, pain TECHNIQUE: Imaging protocol: Radiologic exam of the right ribs with PA chest. Views: 3 views COMPARISON: CR XR chest 2V* [id number] 03/21/2023 4:43 PM FINDINGS: Lungs: Unremarkable. No consolidation. Pleural spaces: Unremarkable. No pleural effusion. No pneumothorax. Heart/Mediastinum: Unremarkable. No cardiomegaly. Bones/joints: Unremarkable. XR/XR ribs RT mn 3V w CXR1V [id number] IMPRESSION: No acute findings.
--- NOTE | 2023-06-27 17:52 | XRR_ITS ---
PROCEDURE INFORMATION: Exam: XR Right Ankle Exam date and time: 06/27/2023 6:05 PM Age: 37 years old Clinical indication: Pain; Ankle; Right; Additional info: Fall, pain TECHNIQUE: Imaging protocol: Radiologic exam of the right ankle. Views: 3 or more views. COMPARISON: No relevant prior studies available. FINDINGS: Bones/joints: Normal. Soft tissues: Soft tissue swelling around the ankle. XR/XR ankle RT min 3V* [id number] IMPRESSION: No acute findings.
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
[2023-06-27] MEDS: tizanidine 4 mg Tablet PO (19:02)
[2023-06-27] MEDS: ketorolac 60 mg/2 mL INJ IM (19:02)
[2023-06-27 19:55] VITALS: PULSE 109; RESP 18; O2SAT 98
--- NOTE | 2023-06-28 07:44 | DCPLANNER ---
Referral was sent to ortho clinic on 06/28 at 07:44 am. Clinic to contact patient.
== END 2023-06-27 20:14 | disposition home or self-care (01) ==
PROVIDERS: Emergency Provider Physician Assistant; PCP Family Medicine
DX: S93.401A Sprain of unspecified ligament of right ankle, initial encounter (principal); S20.211A Contusion of right front wall of thorax, initial encounter; W01.0XXA Fall on same level from slipping, tripping and stumbling without subsequent striking against object, initial encounter; Y92.481 Parking lot as the place of occurrence of the external cause
CPT/HCPCS: 71101; 73610; 96372; 99284; J1885